=== PATIENT | male | born 1935 | race Caucasian/White ===

== ENCOUNTER 2018-08-19 16:47 | Inpatient (IN) ==
[2018-08-19 17:37] LABS: BASOPHILS % (AUTO) 0.3 % (0.2-1.0); HEMATOCRIT 43.2 % (42.0-54.0); HEMOGLOBIN 14.9 g/dL (13.5-18.0); LYMPHOCYTES # (AUTO) 0.6 X10^3/uL (1.3-2.9); LYMPHOCYTES % (AUTO) 9.3 % (21.0-51.0); MEAN CORPUSCULAR HEMOGLOBIN 31.8 pg (27.0-34.0); MEAN CORPUSCULAR HGB CONC 34.6 g/dL (33.0-35.0); MEAN PLATELET VOLUME 7.4 fL (7.4-11.0); MONOCYTES # (AUTO) 0.8 x10^3/uL (0.3-0.8); NEUTROPHILS # (AUTO) 5.6 x10^3/uL (2.2-4.8); NEUTROPHILS % (AUTO) 79.4 % (42.0-75.0); PLATELET COUNT 134 X10^3/uL (150.0-450.0); RED CELL DISTRIBUTION WIDTH 14.2 % (11.6-16.5)
[2018-08-19] MEDS ORDERED: NS 1000 ML 1,000 ML ONE (17:43)
[2018-08-19 17:48] LABS: ALANINE AMINOTRANSFERASE 32 Units/L (12-78); ALBUMIN 3.9 g/dL (3.4-5.0); ALKALINE PHOSPHATASE 104 Units/L (46-116); ASPARTATE AMINO TRANSFERASE 64 Units/L (15-37); BLOOD UREA NITROGEN 14 mg/dL (7-18); CALCIUM 8.3 mg/dL (8.5-10.1); CARBON DIOXIDE 26.1 mmol/L (21-32); CHLORIDE 102 mmol/L (98-107); COR NA(FOR HYPERGLY) 140 mmol/L (136-145); CREATININE 0.97 mg/dL (0.70-1.30); SODIUM 139 mmol/L (136-145); TOTAL PROTEIN 7.7 g/dL (6.4-8.2); eGFR NON BLACK RACES > 60 (>60)
[2018-08-19] MEDS: NS 1000 ML 1,000 ML IV SCH (17:48)
[2018-08-19 18:03] LABS: LACTIC ACID 1.6 mmol/L (0.4-2.0)
--- NOTE | 2018-08-19 18:03 | CT ---
HEAD CT WITHOUT IV CONTRAST CLINICAL INDICATION: Fall TECHNIQUE: Axial CT images from skull base to vertex without IV contrast.Dose reduction techniques including Automated Exposure Control (AEC) and adjustment of mA and kV were utlized. COMPARISON: None FINDINGS: Diffuse patchy and confluent white matter hypoattenuation with associated volume loss. There is no evidence of acute infarction, intracranial hemorrhage, mass or mass effect, or abnormal extra-axial collection. The density of the larger dural venous sinuses is normal. Age-related, ex-vacuo dilatation of the ventricles and sulci. The skull base and calvarium are normal. The included paranasal sinuses and mastoid air cells are predominantly clear. IMPRESSION: 1. No acute intracranial abnormality. Chronic microangiopathic changes and ex vacuo dilatation of the ventricles and sulci. Reported By:
[2018-08-19 18:16] VITALS: BMI 30.6
[2018-08-19 18:19] LABS: TROPONIN I 0.13 ng/mL (0-1.5)
[2018-08-19 18:22] LABS: CKMB % 0.2 % (<4); CREATINE KINASE MB 4.5 ng/mL (0-4.0)
--- NOTE | 2018-08-19 18:27 | RAD ---
HISTORY: Fall Study: Single view of the chest. Comparison: 11/12/2016 Findings: The cardiomediastinal silhouette is normal. Coarsening of interstitial markings bilaterally. Osseous structures demonstrate no acute abnormality. IMPRESSION: 1. Bilateral coarsened interstitial markings which may represent edema versus infection in the correct clinical setting. Reported By:
[2018-08-19] MEDS ORDERED: ULTRAM PO PRN (18:38)
[2018-08-19] MEDS: FLOMAX PO SCH ×2 (20:38→20:53)
[2018-08-19] MEDS: NEURONTIN CAP 300 MG PO SCH ×2 (20:53→23:30)
[2018-08-19] MEDS: COREG TAB 3.125 MG PO SCH (20:53)
[2018-08-19] MEDS: ROCEPHIN VIAL 1 GRAM IVP SCH (20:53)
[2018-08-19] MEDS ORDERED: XOPENEX 1.25 MG/3 ML NEBULE NEB PRN (21:00)
[2018-08-19] MEDS ORDERED: COUMADIN TAB 7.5 MG PO SCH (21:00)
[2018-08-19] MEDS ORDERED: TYLENOL SUPP 650 MG PR PRN (23:24)
[2018-08-20 00:10] LABS: TROPONIN I 0.21 ng/mL (0-1.5)
[2018-08-20 00:11] LABS: CKMB % 0.1 % (<4)
[2018-08-20 00:13] LABS: CREATINE KINASE MB 5.9 ng/mL (0-4.0)
[2018-08-20] MEDS: NS 1000 ML 1,000 ML IV SCH ×3 (01:48→18:28)
[2018-08-20 06:04] LABS: BILIRUBIN,URINE NEGATIVE (NEGATIVE); BLOOD/HEMOGLOBIN,URINE 5+ (NEGATIVE); GLUCOSE, URINE NEGATIVE (NEGATIVE); KETONES,URINE 3+ (NEGATIVE); LEUKOCYTE ESTERASE ,URINE 2+ (NEGATIVE); NITRITES,URINE POSITIVE (NEGATIVE); PROTEIN,URINE 3+ (NEGATIVE); UROBILINOGEN,URINE 1+ (NORMAL)
[2018-08-20 06:11] LABS: APPEARANCE,URINE CLOUDY (CLEAR); COLOR,URINE BLOODY (YELLOW)
[2018-08-20 06:12] LABS: BACTERIA,URINE NEGATIVE /HPF (NEGATIVE); MUCUS,URINE MODERATE /HPF (NEGATIVE); RBC,URINE TNTC /HPF (NONE SEEN); SQUAMOUS EPITHELIAL CELL,UR NEGATIVE /HPF (NEGATIVE)
[2018-08-20 06:22] LABS: BASOPHILS % (AUTO) 0.4 % (0.2-1.0); HEMATOCRIT 38.5 % (42.0-54.0); HEMOGLOBIN 13.2 g/dL (13.5-18.0); LYMPHOCYTES # (AUTO) 1.1 X10^3/uL (1.3-2.9); LYMPHOCYTES % (AUTO) 17.6 % (21.0-51.0); MEAN CORPUSCULAR HEMOGLOBIN 31.6 pg (27.0-34.0); MEAN CORPUSCULAR HGB CONC 34.4 g/dL (33.0-35.0); MEAN CORPUSCULAR VOLUME 91.9 fL (80.0-100.0); MEAN PLATELET VOLUME 7.6 fL (7.4-11.0); MONOCYTES # (AUTO) 0.8 x10^3/uL (0.3-0.8); NEUTROPHILS # (AUTO) 4.5 x10^3/uL (2.2-4.8); PLATELET COUNT 117 X10^3/uL (150.0-450.0); RED BLOOD COUNT 4.19 X10^6/uL (4.7-6.0); RED CELL DISTRIBUTION WIDTH 14.3 % (11.6-16.5); WHITE BLOOD COUNT 6.5 X10^3/uL (3.6-10.0)
[2018-08-20 06:59] LABS: ALANINE AMINOTRANSFERASE 42 Units/L (12-78); ALBUMIN 3.2 g/dL (3.4-5.0); ALKALINE PHOSPHATASE 81 Units/L (46-116); ASPARTATE AMINO TRANSFERASE 124 Units/L (15-37); BLOOD UREA NITROGEN 16 mg/dL (7-18); CALCIUM 7.3 mg/dL (8.5-10.1); CARBON DIOXIDE 24.6 mmol/L (21-32); CHLORIDE 103 mmol/L (98-107); COR CA(FOR HYPOALB) 7.9 mg/dL (8.5-10.1); COR NA(FOR HYPERGLY) 139 mmol/L (136-145); CREATININE 0.81 mg/dL (0.70-1.30); SODIUM 139 mmol/L (136-145); TOTAL PROTEIN 6.7 g/dL (6.4-8.2); TROPONIN I 0.25 ng/mL (0-1.5); eGFR NON BLACK RACES > 60 (>60)
[2018-08-20 07:08] LABS: CKMB % 0.1 % (<4); CREATINE KINASE 5431 Units/L (39-308); CREATINE KINASE MB 6.2 ng/mL (0-4.0)
[2018-08-20] MEDS: ROCEPHIN VIAL 1 GRAM IVP SCH (08:40)
[2018-08-20] MEDS: FOLIC ACID TAB 1 MG PO SCH (08:40)
[2018-08-20] MEDS: LIPITOR TAB 20 MG PO SCH (08:40)
[2018-08-20] MEDS: COREG TAB 3.125 MG PO SCH ×2 (08:41→20:29)
[2018-08-20] MEDS: KLONOPIN TAB 1 MG PO SCH (08:57)
[2018-08-20] MEDS ORDERED: LIPITOR TAB 20 MG PO SCH (09:00)
--- NOTE | 2018-08-20 10:57 | DR.H&P ---
H&P - History & Physical for Day of: H&P Date: 08/19/18 - Chief Complaint Chief Complaint: AMS - History of Present Illness History of Present Illness: 82 WM DIRECT ADMIT PER DR REDDY. PT FAMILY REPORTS PTS SON FOUND HIM AT HOME IN HIS ROOM, HE HAD FALLEN AND SON COULD NOT GET HIM UP. EMS PICKED PT UP AT HOME AND GAVE NARCAN DUE TO CONSTRICTED PUPILS, EMS REPORTS PT HAD IMPROVED RESPONSIVENESS. PT STATES HE DID NOT FALL, PT REPORTS HE WAS TRY TO GET HIS PANTS ON AND FEET GOT TANGLED UP. PT STATES HE CRAWLED AROUND ROOM FOR 4-5 HOURS BECAUSE HE COULD NOT FIND HIS PHONE OR GET UP WITHOUT HELP. PT REPORTS HE WAS "WASHED DOWN WITH SWEAT". PT HAS PMH OF CHF, CAD, BPH, HTN, OA. PT ADMITTED FOR TREATMENT OF ACUTE AMS, R/O CVA. - Past Medical History Past Medical History: Arthritis, COPD, Coronary Artery Disease, Hypertension Additional Medical History: Cataracts, Sleep Apnea, Muscle Weakness, Back Pain, BPH - Past Surgical History Surgical History: Angioplasty/Stents, CABG/Valve Surgery Additional Surgical History: Cataract Surgery - Family History Family Medical History: Coronary Artery Disease - Social History Does patient currently use any type of tobacco product: No Have you used tobacco products in the last 12 months: No Type of Tobacco Use: None Does any household member use tobacco: No Alcohol Use: None Drug Use: None - Medications Home Medications: No Known Drug Allergies Allergy (Verified 08/19/18 17:01) CONTINUE taking the following medications clonazepam 0.5 mg PO DAILY 08/19/18 [History] folic acid 1 mg PO DAILY 08/19/18 [History] tramadol [Ultram] 50 mg PO Q6H PRN 08/19/18 [History] - Review of Systems Constitutional: Weakness Eyes: No Symptoms Reported ENT: No Symptoms Reported Respiratory: Cough, Wheezing Cardiovascular: denies: Chest Pain Gastrointestinal: No Symptoms Reported Genitourinary: No Symptoms Reported Musculoskeletal: Back Pain Skin: No Symptoms Reported Neurological: Weakness, Confusion - Physical Exam Vital Signs: Temperature 98.1 F Pulse Rate [Right Brachial] 86 Pulse Rate 74 Respiratory Rate 20 Blood Pressure [Right Arm] 121/58 Blood Pressure [Left Arm] 111/68 Blood Pressure 111/68 O2 Sat by Pulse Oximetry 98 Oriented: Person Eyes: Normal Ear: Normal Nose: Normal Throat: Dry Respiratory: Rhonchi Throughout (MILD CENTRAL), RLL Diminished, LLL Diminished Cardiovascular: Irregular. negative: Edema : Normal Auscultation: Bowel Sounds: Normal Palpation: Normal Tenderness: Normal Skin: Decreased Turgur Musculoskeletal: Back:Lumbar, Motor Deficit (MILD LUE FINE TREMOR) Mood Description: Calm Speech Pattern: Clear, Appropriate - Assessment/Plan (1) Altered mental status Status: Acute Plan: ADMIT, CT HEAD ON ADMISSION. CXR AND CARDIAC MONITORING. SERIAL CE, GENTLE IV HYDRATION. LUNDY CATH WITH STRICT I & OS, VERIFY HOME MEDICATION. BP AND LIPID CONTROL (2) BPH (benign prostatic hyperplasia) Status: Acute (3) CHF (congestive heart failure) Qualifiers: Qualified Code(s): I50.23 - Acute on chronic systolic (congestive) heart failure Status: Chronic (4) CAD (coronary artery disease) Qualifiers: Coronary Disease-Associated Artery/Lesion type: [place] artery [place] vs. tr ansplanted heart: [place] heart Associated angina: without angina Qualified Code(s): I25.10 - Atherosclerotic heart disease of [place] coronary artery without angina pectoris Status: Chronic - Allergies Allergies/Adverse Reactions: Allergies Allergy/AdvReac Type Severity Reaction Status Date / Time No Known Drug Allergies Allergy Verified 08/19/18 17:01
--- NOTE | 2018-08-20 11:04 | PCM.PROG ---
Progress Note - Progress Note for Day of Date of Exam: 08/20/18 - Subjective Subjective: 82 WM DIRECT ADMIT ON 08/19 WITH AMS. PT ALERT, AWAKE AND ORIENTED THIS AM. PT DENIES ANY CHEST PAIN OR INCREASES SOB. PT HAS MILDLY PRODUCTIVE COUGH AND CENTRAL RHONCHI, CURRENTLY ON IV ROCEPHIN. PT CE WITH ELEVATED CK. CXR WITH INCREASED VASCULAR CONGESTION. PLAN TO CONTINUE GENTLE HYDRATION, IV ATBX, RESP THERAPY, SUPPLEMENTAL O2, LASIX IV WITH STRICT I & OS - Past Medical Family Social History Past Med/Fam/Surg Hx: No changes since H&P Allergies: Allergies No Known Drug Allergies Allergy (Verified 08/19/18 17:01) - Review of Systems ROS: No change since H&P - Vital Signs and I&O's Vital Signs: Temperature 98.1 F Pulse Rate [Right Brachial] 86 Pulse Rate 74 Respiratory Rate 20 Blood Pressure [Right Arm] 121/58 Blood Pressure [Left Arm] 111/68 Blood Pressure 111/68 O2 Sat by Pulse Oximetry 98 Intake and Output: Intake & Output 08/17/18 08/18/18 08/19/18 08/20/18 11:59 11:59 11:59 11:59 Intake Total 789 / 789 Output Total 600 / 600 Balance 189 / 189 - Physical Exam Oriented: Person Eyes: Normal Ear: Normal Nose: Normal Throat: Dry Respiratory: Diminished, Rhonchi Cardiovascular: Irregular. negative: Edema : Normal Auscultation: Bowel Sounds: Normal Tenderness: Normal Skin: Decreased Turgur Musculoskeletal: Back:Lumbar, Motor Deficit (MILD LUE FINE TREMOR) Mood Description: Calm Speech Pattern: Clear, Appropriate - Laboratory and Diagnostics Result Diagrams: 08/20/18 04:50 08/20/18 04:50 Labs: 08/19/18 17:15 Sputum - Expectorated Sputum Sputum Culture - Preliminary 08/19/18 17:15 Sputum - Expectorated Sputum - Final Laboratory WBC 6.5 X10^3/uL (3.6-10.0) 08/20/18 04:50 RBC 4.19 X10^6/uL (4.7-6.0) L 08/20/18 04:50 Hgb 13.2 g/dL (13.5-18.0) L 08/20/18 04:50 Hct 38.5 % (42.0-54.0) L 08/20/18 04:50 MCV 91.9 fL (80.0-100.0) 08/20/18 04:50 MCH 31.6 pg (27.0-34.0) 08/20/18 04:50 MCHC 34.4 g/dL (33.0-35.0) 08/20/18 04:50 RDW 14.3 % (11.6-16.5) 08/20/18 04:50 Plt Count 117 X10^3/uL (150.0-450.0) L 08/20/18 04:50 MPV 7.6 fL (7.4-11.0) 08/20/18 04:50 Neut % (Auto) 69.0 % (42.0-75.0) 08/20/18 04:50 Lymph % (Auto) 17.6 % (21.0-51.0) L 08/20/18 04:50 [place] % (Auto) 13.0 % (0.0-13.0) 08/20/18 04:50 Eos % (Auto) 0.0 % (0.9-2.9) L 08/20/18 04:50 Baso % (Auto) 0.4 % (0.2-1.0) 08/20/18 04:50 Neut # (Auto) 4.5 x10^3/uL (2.2-4.8) 08/20/18 04:50 Lymph # (Auto) 1.1 X10^3/uL (1.3-2.9) L 08/20/18 04:50 [place] # (Auto) 0.8 x10^3/uL (0.3-0.8) 08/20/18 04:50 Eos # (Auto) 0.0 x10^3/uL (0.0-0.2) 08/20/18 04:50 Baso # (Auto) 0.0 X10^3/uL (0.0-0.1) 08/20/18 04:50 Absolute Nucleated RBC 0.0 /100WBC 08/20/18 04:50 INR Target Range - 08/20/18 04:50 INR 2.24 (0.8-1.3) H 08/20/18 04:50 Sodium 139 mmol/L (136-145) 08/20/18 04:50 Corrected Sodium 139 mmol/L (136-145) 08/20/18 04:50 Potassium 3.5 mmol/L (3.5-5.1) 08/20/18 04:50 Chloride 103 mmol/L (98-107) 08/20/18 04:50 Carbon Dioxide 24.6 mmol/L (21-32) 08/20/18 04:50 BUN 16 mg/dL (7-18) 08/20/18 04:50 Creatinine 0.81 mg/dL (0.70-1.30) 08/20/18 04:50 Est GFR (MDRD) Af Amer > 60 (>60) 08/20/18 04:50 Est GFR (MDRD) Non-Af > 60 (>60) 08/20/18 04:50 Glucose 120 mg/dL (65-99) H 08/20/18 04:50 Lactic Acid 1.6 mmol/L (0.4-2.0) 08/19/18 17:20 Calcium 7.3 mg/dL (8.5-10.1) L 08/20/18 04:50 Corrected Calcium 7.9 mg/dL (8.5-10.1) L 08/20/18 04:50 Total Bilirubin 1.20 mg/dL (0.2-1.0) H 08/20/18 04:50 AST 124 Units/L (15-37) H 08/20/18 04:50 ALT 42 Units/L (12-78) 08/20/18 04:50 Alkaline Phosphatase 81 Units/L (46-116) 08/20/18 04:50 Creatine Kinase 5431 Units/L (39-308) H 08/20/18 04:50 CK-MB (CK-2) 6.2 ng/mL (0-4.0) H* 08/20/18 04:50 CK/CKMB % Calc 0.1 % (<4) 08/20/18 04:50 Troponin I 0.25 ng/mL (0-1.5) 08/20/18 04:50 B-Natriuretic Peptide 328 pg/mL (0-79) H 08/20/18 04:50 Total Protein 6.7 g/dL (6.4-8.2) 08/20/18 04:50 Albumin 3.2 g/dL (3.4-5.0) L 08/20/18 04:50 Globulin 3.5 g/dL (2.5-4.5) 08/20/18 04:50 Albumin/Globulin Ratio 0.9 Ratio (1.1-2.1) L 08/20/18 04:50 Specimen Type Catherized urine 08/20/18 05:48 Urine Color Bloody (YELLOW) 08/20/18 05:48 Urine Appearance Cloudy (CLEAR) 08/20/18 05:48 Urine pH 5.0 (5.0 - 8.0) 08/20/18 05:48 Ur Specific [place] 1.025 (1.000-1.030) 08/20/18 05:48 Urine Protein 3+ (NEGATIVE) 08/20/18 05:48 Urine Glucose (UA) Negative (NEGATIVE) 08/20/18 05:48 Urine Ketones 3+ (NEGATIVE) 08/20/18 05:48 Urine Occult Blood 5+ (NEGATIVE) 08/20/18 05:48 Urine Nitrite Positive (NEGATIVE) 08/20/18 05:48 Urine Bilirubin Negative (NEGATIVE) 08/20/18 05:48 Urine Urobilinogen 1+ (NORMAL) 08/20/18 05:48 Ur Leukocyte Esterase 2+ (NEGATIVE) 08/20/18 05:48 Urine RBC Tntc /HPF (NONE SEEN) 08/20/18 05:48 Urine WBC 5-10 /HPF (NONE SEEN) 08/20/18 05:48 Ur Squamous Epith Cells Negative /HPF (NEGATIVE) 08/20/18 05:48 Urine Bacteria Negative /HPF (NEGATIVE) 08/20/18 05:48 Urine Mucus Moderate /HPF (NEGATIVE) 08/20/18 05:48 Ur Culture Indicated? No/not indicated 08/20/18 05:48 - Plan (1) Altered mental status Status: Acute Plan: CT HEAD ON ADMISSION WIHTOUT ACUTE CHANGES. CXR AND CARDIAC MONITORING. SERIAL CE ON ADMISSION,PLAN TO CONTINUE GENTLE HYDRATION, IV ATBX, RESP THERAPY, SUPPLEMENTAL O2, LASIX IV WITH STRICT I & OS (2) BPH (benign prostatic hyperplasia) Status: Acute (3) CHF (congestive heart failure) Status: Chronic Qualifiers: Qualified Code(s): I50.23 - Acute on chronic systolic (congestive) heart failure (4) CAD (coronary artery disease) Status: Chronic Qualifiers: Coronary Disease-Associated Artery/Lesion type: [place] artery [place] vs. transplanted heart: [place] heart Associated angina: without angina Qualified Code(s): I25.10 - Atherosclerotic heart disease of [place] coronary artery without angina pectoris
[2018-08-20] MEDS: LASIX IVP SCH ×2 (11:09→20:27)
[2018-08-20] MEDS: NEURONTIN CAP 100 MG PO SCH ×2 (14:18→20:27)
[2018-08-20] MEDS ORDERED: POTASSIUM CHLORIDE LIQ 20 MEQ UDC PO PRN (19:04)
[2018-08-20] MEDS ORDERED: K-RIDER 10 MEQ/NS 100 ML 10 MEQ/100 ML BAG IV PRN (19:04)
[2018-08-20] MEDS ORDERED: POTASSIUM CHL 60 MEQ/NS 0.45% 500 ML IV PRN (19:04)
[2018-08-20] MEDS ORDERED: POTASSIUM CHL 40 MEQ/NS 0.45% 500 ML IV PRN (19:04)
[2018-08-20] MEDS ORDERED: KLOR-CON PO PRN (19:04)
[2018-08-20] MEDS ORDERED: MICRO K EXTEN CAP 10 MEQ PO PRN (19:04)
[2018-08-20] MEDS: FLOMAX PO SCH (20:29)
[2018-08-20] MEDS: K-DUR TAB 20 MEQ PO PRN (20:29)
[2018-08-20] MEDS: MAGNESIUM SULFATE 1 GRAM/100 mL PREMIX 1 GM/100 ML BAG IV PRN ×2 (20:30→23:26)
[2018-08-20] MEDS: COUMADIN TAB 7.5 MG PO SCH (20:39)
[2018-08-20] MEDS: COLACE CAP 100 MG PO PRN (22:33)
[2018-08-20] MEDS: MILK OF MAGNESIA PO PRN (22:33)
[2018-08-21] MEDS: NS 1000 ML 1,000 ML IV SCH ×2 (00:34→09:54)
--- NOTE | 2018-08-21 06:37 | RAD ---
Examination: AP chest, two views History: Cough Comparison 08/19/2018 Findings: Continued normal heart size with sternal wires. Diffuse bilateral interstitial pulmonary prominence as before, consistent with chronic fibrosis or a more acute congestive process. No consolidation, tiana pulmonary edema or pneumothorax. Impression: No definite interval change in appearance of the chest. Reported By:
[2018-08-21 06:54] LABS: BASOPHILS % (AUTO) 0.2 % (0.2-1.0); EOSINOPHILS % (AUTO) 0.6 % (0.9-2.9); HEMATOCRIT 40.8 % (42.0-54.0); LYMPHOCYTES # (AUTO) 1.3 X10^3/uL (1.3-2.9); LYMPHOCYTES % (AUTO) 21.2 % (21.0-51.0); MEAN CORPUSCULAR HEMOGLOBIN 31.5 pg (27.0-34.0); MEAN CORPUSCULAR HGB CONC 34.3 g/dL (33.0-35.0); MEAN CORPUSCULAR VOLUME 91.8 fL (80.0-100.0); MEAN PLATELET VOLUME 7.6 fL (7.4-11.0); MONOCYTES # (AUTO) 0.6 x10^3/uL (0.3-0.8); MONOCYTES % (AUTO) 10.7 % (0.0-13.0); NEUTROPHILS % (AUTO) 67.3 % (42.0-75.0); PLATELET COUNT 117 X10^3/uL (150.0-450.0); RED BLOOD COUNT 4.45 X10^6/uL (4.7-6.0); RED CELL DISTRIBUTION WIDTH 14.1 % (11.6-16.5)
[2018-08-21 07:18] LABS: ALANINE AMINOTRANSFERASE 60 Units/L (12-78); ALBUMIN 3.3 g/dL (3.4-5.0); ALKALINE PHOSPHATASE 81 Units/L (46-116); ASPARTATE AMINO TRANSFERASE 180 Units/L (15-37); BLOOD UREA NITROGEN 16 mg/dL (7-18); CALCIUM 7.7 mg/dL (8.5-10.1); CARBON DIOXIDE 30.1 mmol/L (21-32); CHLORIDE 100 mmol/L (98-107); COR CA(FOR HYPOALB) 8.3 mg/dL (8.5-10.1); COR NA(FOR HYPERGLY) 139 mmol/L (136-145); CREATININE 0.86 mg/dL (0.70-1.30); SODIUM 138 mmol/L (136-145); TOTAL PROTEIN 7.2 g/dL (6.4-8.2); eGFR NON BLACK RACES > 60 (>60)
[2018-08-21] MEDS: FOLIC ACID TAB 1 MG PO SCH (08:34)
[2018-08-21] MEDS: COREG TAB 3.125 MG PO SCH ×2 (08:34→22:01)
[2018-08-21] MEDS: ROCEPHIN VIAL 1 GRAM IVP SCH (08:35)
[2018-08-21] MEDS: LIPITOR TAB 20 MG PO SCH (08:35)
[2018-08-21] MEDS: KLONOPIN TAB 1 MG PO SCH (08:35)
[2018-08-21] MEDS: MILK OF MAGNESIA PO PRN (10:23)
[2018-08-21] MEDS ORDERED: NS IRRIGATION 500 ML IR ONE (16:21)
[2018-08-21] MEDS ORDERED: COUMADIN TAB 10 MG PO SCH (21:00)
[2018-08-21] MEDS: FLOMAX PO SCH (22:00)
[2018-08-21] MEDS: COUMADIN TAB 7.5 MG PO SCH (22:00)
[2018-08-21] MEDS: NEURONTIN CAP 100 MG PO SCH (22:01)
[2018-08-22] MEDS: NS 1000 ML 1,000 ML IV SCH ×3 (00:50→14:57)
[2018-08-22 06:15] LABS: BASOPHILS % (AUTO) 0.2 % (0.2-1.0); EOSINOPHILS # (AUTO) 0.1 x10^3/uL (0.0-0.2); EOSINOPHILS % (AUTO) 1.5 % (0.9-2.9); HEMATOCRIT 39.7 % (42.0-54.0); HEMOGLOBIN 13.7 g/dL (13.5-18.0); LYMPHOCYTES # (AUTO) 1.3 X10^3/uL (1.3-2.9); LYMPHOCYTES % (AUTO) 22.8 % (21.0-51.0); MEAN CORPUSCULAR HEMOGLOBIN 31.6 pg (27.0-34.0); MEAN CORPUSCULAR HGB CONC 34.5 g/dL (33.0-35.0); MEAN CORPUSCULAR VOLUME 91.6 fL (80.0-100.0); MEAN PLATELET VOLUME 7.9 fL (7.4-11.0); MONOCYTES # (AUTO) 0.6 x10^3/uL (0.3-0.8); MONOCYTES % (AUTO) 10.2 % (0.0-13.0); NEUTROPHILS # (AUTO) 3.7 x10^3/uL (2.2-4.8); NEUTROPHILS % (AUTO) 65.3 % (42.0-75.0); PLATELET COUNT 106 X10^3/uL (150.0-450.0); RED BLOOD COUNT 4.33 X10^6/uL (4.7-6.0); WHITE BLOOD COUNT 5.7 X10^3/uL (3.6-10.0)
[2018-08-22 06:38] LABS: ALANINE AMINOTRANSFERASE 60 Units/L (12-78); ALBUMIN 3.2 g/dL (3.4-5.0); ALKALINE PHOSPHATASE 81 Units/L (46-116); ASPARTATE AMINO TRANSFERASE 151 Units/L (15-37); BLOOD UREA NITROGEN 16 mg/dL (7-18); CALCIUM 7.5 mg/dL (8.5-10.1); CARBON DIOXIDE 27.1 mmol/L (21-32); CHLORIDE 101 mmol/L (98-107); COR CA(FOR HYPOALB) 8.1 mg/dL (8.5-10.1); COR NA(FOR HYPERGLY) 138 mmol/L (136-145); CREATINE KINASE MB 3.2 ng/mL (0-4.0); CREATININE 0.75 mg/dL (0.70-1.30); SODIUM 137 mmol/L (136-145); TOTAL PROTEIN 6.9 g/dL (6.4-8.2); TROPONIN I 0.08 ng/mL (0-1.5); eGFR NON BLACK RACES > 60 (>60)
[2018-08-22 06:39] LABS: CKMB % 0.1 % (<4)
[2018-08-22 06:40] LABS: CREATINE KINASE 3694 Units/L (39-308)
[2018-08-22] MEDS: ROCEPHIN VIAL 1 GRAM IVP SCH (09:05)
[2018-08-22] MEDS: COREG TAB 3.125 MG PO SCH ×2 (09:05→20:51)
[2018-08-22] MEDS: LIPITOR TAB 20 MG PO SCH (09:05)
[2018-08-22] MEDS: COLACE CAP 100 MG PO PRN (09:05)
[2018-08-22] MEDS: FOLIC ACID TAB 1 MG PO SCH (09:05)
[2018-08-22] MEDS: KLONOPIN TAB 1 MG PO SCH (09:06)
--- NOTE | 2018-08-22 09:24 | PCM.PROG ---
Progress Note - Progress Note for Day of Date of Exam: 08/21/18 - Subjective Subjective: 82 WM DIRECT ADMIT ON 08/19 WITH AMS. PT ALERT, AWAKE AND ORIENTED THIS AM. PT DENIES ANY CHEST PAIN OR INCREASES SOB. PT HAS MILDLY PRODUCTIVE COUGH AND CENTRAL RHONCHI, CURRENTLY ON IV ROCEPHIN. PT CE WITH ELEVATED CK. CXR WITH INCREASED VASCULAR CONGESTION. WILL REPEAT AM CXR. PLAN TO CONTINUE GENTLE HYDRATION, IV ATBX, RESP THERAPY, SUPPLEMENTAL O2, LASIX IV X 2 DOES GIVEN WITH STRICT I & OS, IMPROVING SOB PER PT, INCREASE URINE OUTPT. PT CK 5846, REPEAT CE ORDERED. SPUTUM + ENTEROBACTER SENSATIVE TO ROCEPHIN - Past Medical Family Social History Past Med/Fam/Surg Hx: No changes since H&P Allergies: Allergies No Known Drug Allergies Allergy (Verified 08/19/18 17:01) - Review of Systems ROS: No change since H&P - Vital Signs and I&O's Vital Signs: Temperature 98.1 F Pulse Rate [Right Brachial] 98 Pulse Rate 74 Respiratory Rate 20 Blood Pressure [Right Arm] 112/66 Blood Pressure [Left Arm] 123/74 Blood Pressure 111/68 O2 Sat by Pulse Oximetry 95 Intake and Output: Intake & Output 08/19/18 08/20/18 08/21/18 08/22/18 11:59 11:59 11:59 11:59 Intake Total 789 / 789 1755 / 1755 2040 / 2040 Output Total 600 / 600 3300 / 3300 800 / 800 Balance 189 / 189 -1545 / -1545 1240 / 1240 - Physical Exam Oriented: Person Eyes: Normal Ear: Normal Nose: Normal Throat: Dry Respiratory: Diminished, Rhonchi Cardiovascular: Irregular. negative: Edema : Normal Auscultation: Bowel Sounds: Normal Tenderness: Normal Skin: Decreased Turgur Musculoskeletal: Back:Lumbar, Motor Deficit (MILD LUE FINE TREMOR) Mood Description: Calm Speech Pattern: Clear, Delayed - Laboratory and Diagnostics Result Diagrams: 08/22/18 05:20 08/22/18 05:20 Labs: 08/20/18 05:48 Urine,Catheterized Urine Culture - Final 08/19/18 17:20 Blood Blood Culture - Preliminary 08/19/18 17:15 Sputum - Expectorated Sputum Sputum Culture - Final Enterobacter Cloacae 08/19/18 17:15 Sputum - Expectorated Sputum - Final 08/19/18 17:25 Blood Blood Culture - Preliminary Laboratory WBC 5.7 X10^3/uL (3.6-10.0) 08/22/18 05:20 RBC 4.33 X10^6/uL (4.7-6.0) L 08/22/18 05:20 Hgb 13.7 g/dL (13.5-18.0) 08/22/18 05:20 Hct 39.7 % (42.0-54.0) L 08/22/18 05:20 MCV 91.6 fL (80.0-100.0) 08/22/18 05:20 MCH 31.6 pg (27.0-34.0) 08/22/18 05:20 MCHC 34.5 g/dL (33.0-35.0) 08/22/18 05:20 RDW 14.0 % (11.6-16.5) 08/22/18 05:20 Plt Count 106 X10^3/uL (150.0-450.0) L 08/22/18 05:20 MPV 7.9 fL (7.4-11.0) 08/22/18 05:20 Neut % (Auto) 65.3 % (42.0-75.0) 08/22/18 05:20 Lymph % (Auto) 22.8 % (21.0-51.0) 08/22/18 05:20 [place] % (Auto) 10.2 % (0.0-13.0) 08/22/18 05:20 Eos % (Auto) 1.5 % (0.9-2.9) 08/22/18 05:20 Baso % (Auto) 0.2 % (0.2-1.0) 08/22/18 05:20 Neut # (Auto) 3.7 x10^3/uL (2.2-4.8) 08/22/18 05:20 Lymph # (Auto) 1.3 X10^3/uL (1.3-2.9) 08/22/18 05:20 [place] # (Auto) 0.6 x10^3/uL (0.3-0.8) 08/22/18 05:20 Eos # (Auto) 0.1 x10^3/uL (0.0-0.2) 08/22/18 05:20 Baso # (Auto) 0.0 X10^3/uL (0.0-0.1) 08/22/18 05:20 Absolute Nucleated RBC 0.1 /100WBC 08/22/18 05:20 INR Target Range - 08/22/18 05:20 INR 2.43 (0.8-1.3) H 08/22/18 05:20 Sodium 137 mmol/L (136-145) 08/22/18 05:20 Corrected Sodium 138 mmol/L (136-145) 08/22/18 05:20 Potassium 3.9 mmol/L (3.5-5.1) 08/22/18 05:20 Chloride 101 mmol/L (98-107) 08/22/18 05:20 Carbon Dioxide 27.1 mmol/L (21-32) 08/22/18 05:20 BUN 16 mg/dL (7-18) 08/22/18 05:20 Creatinine 0.75 mg/dL (0.70-1.30) 08/22/18 05:20 Est GFR (MDRD) Af Amer > 60 (>60) 08/22/18 05:20 Est GFR (MDRD) Non-Af > 60 (>60) 08/22/18 05:20 Glucose 129 mg/dL (65-99) H 08/22/18 05:20 Lactic Acid 1.6 mmol/L (0.4-2.0) 08/19/18 17:20 Calcium 7.5 mg/dL (8.5-10.1) L 08/22/18 05:20 Corrected Calcium 8.1 mg/dL (8.5-10.1) L 08/22/18 05:20 Magnesium 2.5 mg/dL (1.7-2.9) 08/21/18 05:45 Total Bilirubin 1.00 mg/dL (0.2-1.0) 08/22/18 05:20 AST 151 Units/L (15-37) H 08/22/18 05:20 ALT 60 Units/L (12-78) 08/22/18 05:20 Alkaline Phosphatase 81 Units/L (46-116) 08/22/18 05:20 Creatine Kinase 3694 Units/L (39-308) H 08/22/18 05:20 CK-MB (CK-2) 3.2 ng/mL (0-4.0) 08/22/18 05:20 CK/CKMB % Calc 0.1 % (<4) 08/22/18 05:20 Troponin I 0.08 ng/mL (0-1.5) 08/22/18 05:20 B-Natriuretic Peptide 328 pg/mL (0-79) H 08/20/18 04:50 Total Protein 6.9 g/dL (6.4-8.2) 08/22/18 05:20 Albumin 3.2 g/dL (3.4-5.0) L 08/22/18 05:20 Globulin 3.7 g/dL (2.5-4.5) 08/22/18 05:20 Albumin/Globulin Ratio 0.9 Ratio (1.1-2.1) L 08/22/18 05:20 Specimen Type Catherized urine 08/20/18 05:48 Urine Color Bloody (YELLOW) 08/20/18 05:48 Urine Appearance Cloudy (CLEAR) 08/20/18 05:48 Urine pH 5.0 (5.0 - 8.0) 08/20/18 05:48 Ur Specific [place] 1.025 (1.000-1.030) 08/20/18 05:48 Urine Protein 3+ (NEGATIVE) 08/20/18 05:48 Urine Glucose (UA) Negative (NEGATIVE) 08/20/18 05:48 Urine Ketones 3+ (NEGATIVE) 08/20/18 05:48 Urine Occult Blood 5+ (NEGATIVE) 08/20/18 05:48 Urine Nitrite Positive (NEGATIVE) 08/20/18 05:48 Urine Bilirubin Negative (NEGATIVE) 08/20/18 05:48 Urine Urobilinogen 1+ (NORMAL) 08/20/18 05:48 Ur Leukocyte Esterase 2+ (NEGATIVE) 08/20/18 05:48 Urine RBC Tntc /HPF (NONE SEEN) 08/20/18 05:48 Urine WBC 5-10 /HPF (NONE SEEN) 08/20/18 05:48 Ur Squamous Epith Cells Negative /HPF (NEGATIVE) 08/20/18 05:48 Urine Bacteria Negative /HPF (NEGATIVE) 08/20/18 05:48 Urine Mucus Moderate /HPF (NEGATIVE) 08/20/18 05:48 Ur Culture Indicated? No/not indicated 08/20/18 05:48 - Plan (1) Altered mental status Status: Acute Plan: CT HEAD ON ADMISSION WIHTOUT ACUTE CHANGES. CXR AND CARDIAC MONITORING. SERIAL CE ON ADMISSION,PLAN TO CONTINUE GENTLE HYDRATION, IV ATBX, RESP THERAPY, SUPPLEMENTAL O2, LASIX IV WITH STRICT I & OS (2) Bronchopneumonia Status: Acute Plan: RESP THERAPY, IV ROCEPHIN. CULTURES COLLECTED ON ADMISSION (3) BPH (benign prostatic hyperplasia) Status: Acute (4) CHF (congestive heart failure) Status: Chronic Qualifiers: Qualified Code(s): I50.23 - Acute on chronic systolic (congestive) heart failure (5) CAD (coronary artery disease) Status: Chronic Qualifiers: Coronary Disease-Associated Artery/Lesion type: [place] artery [place] vs. transplanted heart: [place] heart Associated angina: without angina Qualified Code(s): I25.10 - Atherosclerotic heart disease of [place] coronary artery without angina pectoris
[2018-08-22] MEDS: FLOMAX PO SCH (20:51)
[2018-08-22] MEDS: NEURONTIN CAP 100 MG PO SCH (20:51)
[2018-08-22] MEDS: COUMADIN TAB 7.5 MG PO SCH (20:52)
[2018-08-23] MEDS: NS 1000 ML 1,000 ML IV SCH ×2 (01:15→06:04)
[2018-08-23 05:15] LABS: BASOPHILS % (AUTO) 0.5 % (0.2-1.0); EOSINOPHILS # (AUTO) 0.2 x10^3/uL (0.0-0.2); EOSINOPHILS % (AUTO) 5.5 % (0.9-2.9); HEMATOCRIT 37.8 % (42.0-54.0); HEMOGLOBIN 12.9 g/dL (13.5-18.0); LYMPHOCYTES % (AUTO) 23.3 % (21.0-51.0); MEAN CORPUSCULAR HEMOGLOBIN 31.2 pg (27.0-34.0); MEAN CORPUSCULAR VOLUME 91.8 fL (80.0-100.0); MEAN PLATELET VOLUME 8.2 fL (7.4-11.0); MONOCYTES # (AUTO) 0.5 x10^3/uL (0.3-0.8); MONOCYTES % (AUTO) 11.1 % (0.0-13.0); NEUTROPHILS # (AUTO) 2.6 x10^3/uL (2.2-4.8); NEUTROPHILS % (AUTO) 59.6 % (42.0-75.0); PLATELET COUNT 131 X10^3/uL (150.0-450.0); RED BLOOD COUNT 4.12 X10^6/uL (4.7-6.0); WHITE BLOOD COUNT 4.4 X10^3/uL (3.6-10.0)
[2018-08-23 05:47] LABS: ALANINE AMINOTRANSFERASE 55 Units/L (12-78); ALBUMIN 2.9 g/dL (3.4-5.0); ALKALINE PHOSPHATASE 74 Units/L (46-116); ASPARTATE AMINO TRANSFERASE 105 Units/L (15-37); BLOOD UREA NITROGEN 12 mg/dL (7-18); CALCIUM 7.7 mg/dL (8.5-10.1); CARBON DIOXIDE 27.8 mmol/L (21-32); CHLORIDE 104 mmol/L (98-107); COR CA(FOR HYPOALB) 8.6 mg/dL (8.5-10.1); COR NA(FOR HYPERGLY) 141 mmol/L (136-145); CREATINE KINASE MB 2.7 ng/mL (0-4.0); CREATININE 0.73 mg/dL (0.70-1.30); SODIUM 140 mmol/L (136-145); TOTAL PROTEIN 6.3 g/dL (6.4-8.2); TROPONIN I 0.04 ng/mL (0-1.5); eGFR NON BLACK RACES > 60 (>60)
[2018-08-23 05:50] LABS: CKMB % 0.2 % (<4); CREATINE KINASE 1688 Units/L (39-308)
[2018-08-23] MEDS: K-DUR TAB 20 MEQ PO PRN (06:05)
[2018-08-23 08:05] VITALS: BP 120/67
[2018-08-23] MEDS: FOLIC ACID TAB 1 MG PO SCH (08:33)
[2018-08-23] MEDS: KLONOPIN TAB 1 MG PO SCH ×2 (08:33→08:38)
[2018-08-23] MEDS: COREG TAB 3.125 MG PO SCH (08:37)
[2018-08-23] MEDS: LIPITOR TAB 20 MG PO SCH (08:38)
[2018-08-23] MEDS: ROCEPHIN VIAL 1 GRAM IVP SCH (08:38)
[2018-08-23] MEDS ORDERED: COUMADIN TAB 5 MG PO SCH (21:00)
--- NOTE | 2018-09-09 01:39 | DR.CARTERD ---
- Discharge Summary for: Discharge Summary for Date of:: 08/23/18 - Admission Date Date of Admission: 08/19/18 - Admission Diagnoses Admission Diagnosis: (1) CHF (congestive heart failure) (2) Altered mental status (3) BPH (benign prostatic hyperplasia) (4) CAD (coronary artery disease) - Discharge Date Discharge Date: 08/23/18 - Discharge Diagnoses Discharge Diagnosis: (1) CHF (congestive heart failure) (2) Bronchopneumonia (3) Altered mental status (4) BPH (benign prostatic hyperplasia) (5) CAD (coronary artery disease) - Hospital Course Hospital Course: DAY ONE, 82 WM DIRECT ADMIT PER DR REDDY. PT FAMILY REPORTED PTS SON FOUND HIM AT HOME IN HIS ROOM, HE HAD FALLEN AND SON COULD NOT GET HIM UP. EMS PICKED PT UP AT HOME AND GAVE NARCAN DUE TO CONSTRICTED PUPILS, EMS REPORTED PT HAD IMPROVED RESPONSIVENESS. PT STATED HE DID NOT FALL, PT REPORTED HE WAS TRYING TO GET HIS PANTS ON AND FEET GOT TANGLED UP. PT STATED HE CRAWLED AROUND ROOM FOR 4-5 HOURS BECAUSE HE COULD NOT FIND HIS PHONE OR GET UP WITHOUT HELP. PT REPORTED HE WAS "WASHED DOWN WITH SWEAT". PT HAS PMH OF CHF, CAD, BPH, HTN, OA. PT ADMITTED FOR TREATMENT OF ACUTE AMS, R/O CVA. WE CONTINUED TO MONITOR AND TREAT PATIENT. DAY TWO, 82 WM DIRECT ADMIT ON 08/19 WITH AMS. PT ALERT, AWAKE AND ORIENTED THIS AM. PT DENIED ANY CHEST PAIN OR INCREASES SOB. PT HAD MILDLY PRODUCTIVE COUGH AND CENTRAL RHONCHI, HE WAS ON IV ROCEPHIN. PT CE WITH ELEVATED CK. CXR WITH INCREASED VASCULAR CONGESTION. PLANNED TO CONTINUE GENTLE HYDRATION, IV ATBX, RESP THERAPY, SUPPLEMENTAL O2, LASIX IV WITH STRICT I & OS. WE CONTINUED CURRENT PLAN OF CARE AND MONITORED PATIENT. DAY THREE, 82 WM DIRECT ADMIT ON 08/19 WITH AMS. PT ALERT, AWAKE AND ORIENTED THIS AM. PT DENIED ANY CHEST PAIN OR INCREASES SOB. PT HAD MILDLY PRODUCTIVE COUGH AND CENTRAL RHONCHI, HE WAS ON IV ROCEPHIN. PT CE WITH ELEVATED CK. CXR WITH INCREASED VASCULAR CONGESTION. REPEATED AM CXR. PLANNED TO CONTINUE GENTLE HYDRATION, IV ATBX, RESP THERAPY, SUPPLEMENTAL O2, LASIX IV X 2 DOES GIVEN WITH STRICT I & OS, IMPROVING SOB PER PT, INCREASE URINE OUTPT. PT CK 5846, REPEATED CE ORDERED. SPUTUM + ENTEROBACTER SENSATIVE TO ROCEPHIN. WE CONTINUED WITH CURRENT PLAN OF CARE AND CONTINUED TO MONITOR PATIENT. DAY FIVE, PATIENT SITTING UP IN BED ALERT AND ORIENTED. PATIENT STATED THAT SYMPTOMS HAD SIGNIFICANTLY IMPROVED. VITALS WERE STABLE. LABS WITHIN NORMAL RANGE FOR PATIENT. WE PLANNED FOR DISCHARGE. INSTRUCTIONS FOR MEDICATIONS AND FOLLOW UP WERE DISCUSSED WITH PATIENT AND FAMILY, BOTH VOICED UNDERSTANDING. PATIENT DISCHARGED HOME IN STABLE CONDITION. - Discharge Medications Discharge Medications: Home Medication List clonazepam 0.5 mg PO DAILY 08/19/18 [History] folic acid 1 mg PO DAILY 08/19/18 [History] tramadol [Ultram] 50 mg PO Q6H PRN 08/19/18 [History] cefdinir 300 mg PO Q12H #20 cap 08/23/18 [Rx] Prescriptions: cefdinir Oskar Reddy Ambulatory Orders atorvastatin 15 mg PO DAILY 11/10/16 carvedilol 3.125 mg PO BID 11/10/16 tamsulosin 0.8 mg PO HS 11/10/16 warfarin 1.5 - 2 tab PO .SEE INSTRUCTIONS 11/10/16 gabapentin 300 mg PO HS #60 cap 11/12/16 - Discharge Disposition Discharge Disposition: PATIENT TO FOLLOW UP IN OUR OFFICE IN ONE WEEK.
== END 2018-08-23 11:25 | disposition home health service (06) | DRG 193 ==
LOC: MED/SURG → OBSVTOIN 16:56
PROVIDERS: ADMIT Internal Medicine; ATTEND Internal Medicine
DX: N40.0 Benign prostatic hyperplasia without lower urinary tract symptoms; Z79.01 Long term (current) use of anticoagulants; J18.0 Bronchopneumonia, unspecified organism; J44.9 Chronic obstructive pulmonary disease, unspecified; M62.82 Rhabdomyolysis; R41.82 Altered mental status, unspecified; I25.10 Atherosclerotic heart disease of native coronary artery without angina pectoris; I50.23 Acute on chronic systolic (congestive) heart failure; I11.0 Hypertensive heart disease with heart failure; B96.89 Other specified bacterial agents as the cause of diseases classified elsewhere
CPT/HCPCS: 36415; 70450; 71010; 71045; 80053; 81001; 82550; 82553; 83605; 83735; 83880; 84484; 85025; 85610; 87040; 87070; 87077; 87086; 87186; 87205; 93005; 94760; 97116; 97162; 97166; 97530; A4222; J0696; J1940; J3475; J7030

== ENCOUNTER 2023-01-05 11:21 | Inpatient (IN) ==
[2023-01-05] MEDS ORDERED: NS 1/2 1,000 ML IV 1,000 ML IV ONE ×2 (14:50→22:20)
[2023-01-05 14:51] LABS: BASOPHILS % (AUTO) 0.5 % (0.2-1.0); EOSINOPHILS % (AUTO) 0.1 % (0.9-2.9); HEMATOCRIT 37.7 % (42.0-54.0); HEMOGLOBIN 12.5 g/dL (13.5-18.0); LYMPHOCYTES # (AUTO) 0.6 X10^3/uL (1.3-2.9); LYMPHOCYTES % (AUTO) 7.8 % (21.0-51.0); MEAN CORPUSCULAR HEMOGLOBIN 30.5 pg (27.0-34.0); MEAN CORPUSCULAR HGB CONC 33.2 g/dL (33.0-35.0); MEAN PLATELET VOLUME 7.6 fL (7.4-11.0); MONOCYTES # (AUTO) 0.6 x10^3/uL (0.3-0.8); NEUTROPHILS # (AUTO) 6.8 x10^3/uL (2.2-4.8); NEUTROPHILS % (AUTO) 84.6 % (42.0-75.0); PLATELET COUNT 183 X10^3/uL (150.0-450.0); RED BLOOD COUNT 4.09 X10^6/uL (4.7-6.0); RED CELL DISTRIBUTION WIDTH 15.3 % (11.6-16.5); WHITE BLOOD COUNT 8.1 X10^3/uL (3.6-10.0)
[2023-01-05 15:09] LABS: ALANINE AMINOTRANSFERASE 26 Units/L (12-78); ALBUMIN 3.5 g/dL (3.4-5.0); ALKALINE PHOSPHATASE 142 Units/L (46-116); ASPARTATE AMINO TRANSFERASE 36 Units/L (15-37); BLOOD UREA NITROGEN 22 mg/dL (7-18); CALCIUM 8.1 mg/dL (8.5-10.1); CARBON DIOXIDE 32.1 mmol/L (21-32); CHLORIDE 103 mmol/L (98-107); COR NA(FOR HYPERGLY) 143 mmol/L (136-145); CREATININE 0.84 mg/dL (0.70-1.30); GLUCOSE 155 mg/dL (65-99); POTASSIUM 3.8 mmol/L (3.5-5.1); SODIUM 142 mmol/L (136-145); eGFR NON BLACK RACES > 60 (>60)
[2023-01-05] MEDS: NS 1/2 1,000 ML IV 1,000 ML IV SCH ×2 (15:15→22:28)
[2023-01-05] MEDS: LEVAQUIN PREMIX IV 750 MG 750 MG/150 ML BAG IV SCH (15:16)
[2023-01-05] MEDS ORDERED: XOPENEX 1.25 MG/3 ML NEBULE NEB ONE (16:31)
[2023-01-05] MEDS: XOPENEX 1.25 MG/3 ML NEBULE NEB SCH (16:35)
[2023-01-05] MEDS: HALDOL INJ IM PRN (19:09)
[2023-01-05] MEDS: LASIX IVP SCH (19:12)
[2023-01-05 19:36] LABS: BILIRUBIN,URINE NEGATIVE (NEGATIVE); BLOOD/HEMOGLOBIN,URINE 5+ (NEGATIVE); GLUCOSE, URINE NEGATIVE (NEGATIVE); KETONES,URINE 2+ (NEGATIVE); LEUKOCYTE ESTERASE ,URINE 1+ (NEGATIVE); NITRITES,URINE NEGATIVE (NEGATIVE); PROTEIN,URINE 3+ (NEGATIVE); UROBILINOGEN,URINE 1+ (NORMAL)
[2023-01-05 19:57] LABS: APPEARANCE,URINE CLEAR (CLEAR); COLOR,URINE AMBER (YELLOW)
[2023-01-05 19:58] LABS: RBC,URINE 30-50 /HPF (0-3); SQUAMOUS EPITHELIAL CELL,UR RARE /HPF (NEGATIVE)
[2023-01-05] MEDS ORDERED: PULMICORT NEB TX 0.5 MG NEB ONE (19:58)
[2023-01-05 19:59] LABS: BACTERIA,URINE TRACE /HPF (NEGATIVE); HYALINE CASTS, URINE FEW /LPF (NEGATIVE)
[2023-01-05] MEDS: ULTRAM PO PRN (20:15)
[2023-01-05 20:30] LABS: INR 4.43 (0.8-1.3)
[2023-01-05] MEDS: ROBITUSSIN DM PO PRN (20:48)
[2023-01-05] MEDS ORDERED: COUMADIN TAB 7.5 MG (JANTOVEN) PO SCH (21:00)
[2023-01-05] MEDS: PULMICORT NEB TX 0.5 MG NEB SCH (21:43)
[2023-01-06] MEDS: XOPENEX 1.25 MG/3 ML NEBULE NEB SCH ×6 (00:27→17:08)
[2023-01-06] MEDS: HALDOL INJ IM PRN (02:37)
[2023-01-06] MEDS: NS 1/2 1,000 ML IV 1,000 ML IV SCH ×2 (05:20→14:31)
[2023-01-06 06:10] LABS: BASOPHILS % (AUTO) 0.3 % (0.2-1.0); HEMATOCRIT 37.7 % (42.0-54.0); HEMOGLOBIN 12.5 g/dL (13.5-18.0); LYMPHOCYTES # (AUTO) 0.5 X10^3/uL (1.3-2.9); LYMPHOCYTES % (AUTO) 6.1 % (21.0-51.0); MEAN CORPUSCULAR HEMOGLOBIN 30.5 pg (27.0-34.0); MEAN CORPUSCULAR HGB CONC 33.2 g/dL (33.0-35.0); MEAN CORPUSCULAR VOLUME 91.7 fL (80.0-100.0); MEAN PLATELET VOLUME 7.3 fL (7.4-11.0); MONOCYTES # (AUTO) 0.7 x10^3/uL (0.3-0.8); MONOCYTES % (AUTO) 8.5 % (0.0-13.0); NEUTROPHILS # (AUTO) 7.5 x10^3/uL (2.2-4.8); NEUTROPHILS % (AUTO) 85.1 % (42.0-75.0); PLATELET COUNT 177 X10^3/uL (150.0-450.0); RED BLOOD COUNT 4.11 X10^6/uL (4.7-6.0); RED CELL DISTRIBUTION WIDTH 15.3 % (11.6-16.5); WHITE BLOOD COUNT 8.8 X10^3/uL (3.6-10.0)
[2023-01-06 06:34] LABS: ALANINE AMINOTRANSFERASE 23 Units/L (12-78); ALBUMIN 3.3 g/dL (3.4-5.0); ALKALINE PHOSPHATASE 140 Units/L (46-116); ASPARTATE AMINO TRANSFERASE 29 Units/L (15-37); BLOOD UREA NITROGEN 18 mg/dL (7-18); CALCIUM 8.1 mg/dL (8.5-10.1); CARBON DIOXIDE 31.9 mmol/L (21-32); CHLORIDE 101 mmol/L (98-107); COR CA(FOR HYPOALB) 8.7 mg/dL (8.5-10.1); COR NA(FOR HYPERGLY) 144 mmol/L (136-145); CREATININE 0.85 mg/dL (0.70-1.30); GLUCOSE 137 mg/dL (65-99); POTASSIUM 3.2 mmol/L (3.5-5.1); SODIUM 143 mmol/L (136-145); TOTAL PROTEIN 6.4 g/dL (6.4-8.2); eGFR NON BLACK RACES > 60 (>60)
--- NOTE | 2023-01-06 06:47 | RAD ---
HISTORYAtrial fibrillationSTUDYChest AP portableCOMPARISONNoneFINDINGSPatient is status post median sternotomy and CABG. The heart is enlarged. No congestive heart failure is noted. No definite acute alveolar infiltrates or pleural effusions are identified. Bony thorax is unremarkable.IMPRESSIONCardiomegaly without congestive heart failureNo definite infiltratesElectronically signed by: ISABELLE CALVO (Jan 06, 2023 06:46:55)
--- NOTE | 2023-01-06 07:49 | RAD ---
HISTORYPneumoniaSTUDYPortable AP chestCOMPARISONApril 2022FINDINGSSimilar cardiac enlargement with sternal wires. Interval increase in bilateral interstitial process without evidence for lobar consolidation or pleural effusion.IMPRESSIONIncreasing interstitial pulmonary pattern since 1 day earlier is consistent with developing inflammatory and/or congestive process.Electronically signed by: OG CHANG (Jan 06, 2023 07:48:02)
[2023-01-06] MEDS: PULMICORT NEB TX 0.5 MG NEB SCH ×2 (08:08→20:07)
[2023-01-06] MEDS: LEVAQUIN PREMIX IV 750 MG 750 MG/150 ML BAG IV SCH (09:23)
[2023-01-06] MEDS: LASIX IVP SCH (09:24)
[2023-01-06] MEDS: K-DUR TAB 20 MEQ PO PRN (09:24)
[2023-01-06] MEDS ORDERED: LASIX IVP ONE (09:32)
[2023-01-06] MEDS: CLARITIN-D 12 HOUR TAB PO SCH ×2 (10:30→20:30)
[2023-01-06] MEDS: FLONASE NASAL SPRAY ENOSTRIL SCH ×2 (10:30→20:36)
[2023-01-06] MEDS ORDERED: MAGNESIUM SULFATE 1 GRAM/100 mL PREMIX 1 G/100 ML BAG IV PRN (16:25)
[2023-01-06] MEDS ORDERED: LASIX PO SCH (17:00)
[2023-01-06] MEDS: ROBITUSSIN DM PO PRN (20:30)
[2023-01-06] MEDS: ULTRAM PO PRN (20:30)
--- NOTE | 2023-01-06 20:42 | DR.UPDATE ---
H&P Update H&P Reviewed: Yes Any changes to H&P?: Yes Changes noted:: WAS AN ADMISSION FOR TREATMENT OF CHF EXACERBATION AND ACUTE BRONCHITIS. ON ARRIVAL TO THE HOSPITAL, HIS VITALS WERE: 98.1-73-22-95%-158/90. HE WAS ON NASAL CANNULA AT 2 LPM AT THE TIME THAT VITALS WERE TAKEN. LABS WERE OBTAINED. WBC 8.1, RBC 4.09, HGB 12.5, HCT 37.7, PLT COUNT 183, INR 4.43, SODIUM 143, POTASSIUM 3.8, CHLORIDE 103, CARBON DIOXIDE 32.1, BUN 22, CREATININE 0.84, GLUCOSE 155, CALCIUM 8.1, AST 36, ALT 26, ALK PHOS 142, TOTAL PROTEIN 6.0, ALBUMIN 3.5. A LUNDY CATHETER WAS INSERTED AND A URINALYSIS WAS OBTAINED. WBC 0-2, RBC 30-50, BACTERIA TRACE, LEUKOCYTES 1+, BLOOD 5+. BLOOD AND SPUTUM CULTURES WERE SET UP. AN AIT PANEL WAS ALSO SET UP. A CHEST XRAY WAS OBTAINED AND REVEALED: Patient is status post median sternotomy and CABG. The heart is enlarged. No congestive heart failure is noted. No definite acute alveolar infiltrates or pleural effusions are identified. Bony thorax is unremarkable. HE WAS STARTED ON FUROSEMIDE 40MG IV BID, LEVAQUIN 750MG IV DAILY, PULMICORT NEBS BID, XOPENEX NEBS Q6H, ROBITUSSIN DM 10ML QID, TUSSIONEX 5ML Q12H PRN, FLONASE 1 SPRAY BID, CLARITIN D 1 TAB Q12H, ULTRAM 50MG Q4H PRN, HALDOL 2- 4MG IM Q4H PRN, AND THE POTASSIUM AND MAGNESIUM PROTOCOLS. OTHERWISE, WE WILL FOLLOW-UP WITH AM LABS AND CHEST XRAY AND CONTINUE TO MONITOR. TIME SPENT ON CLINICAL ASSESSMENT, REVIEWING LABS AND IMAGING, DECISION MAKING, AND DOCUMENTATION GREATER THAN 75 MINUTES. Patient was examined?: Yes
[2023-01-07] MEDS: XOPENEX 1.25 MG/3 ML NEBULE NEB SCH ×4 (00:07→17:00)
[2023-01-07] MEDS: ULTRAM PO PRN (01:34)
[2023-01-07] MEDS: HALDOL INJ IM PRN ×2 (03:00→07:36)
[2023-01-07 06:21] LABS: BASOPHILS % (AUTO) 0.2 % (0.2-1.0); HEMATOCRIT 36.5 % (42.0-54.0); HEMOGLOBIN 12.3 g/dL (13.5-18.0); LYMPHOCYTES # (AUTO) 0.8 X10^3/uL (1.3-2.9); LYMPHOCYTES % (AUTO) 8.4 % (21.0-51.0); MEAN CORPUSCULAR HEMOGLOBIN 30.7 pg (27.0-34.0); MEAN CORPUSCULAR HGB CONC 33.7 g/dL (33.0-35.0); MEAN CORPUSCULAR VOLUME 90.9 fL (80.0-100.0); MEAN PLATELET VOLUME 7.6 fL (7.4-11.0); MONOCYTES # (AUTO) 0.8 x10^3/uL (0.3-0.8); MONOCYTES % (AUTO) 8.8 % (0.0-13.0); NEUTROPHILS # (AUTO) 7.5 x10^3/uL (2.2-4.8); NEUTROPHILS % (AUTO) 82.6 % (42.0-75.0); PLATELET COUNT 171 X10^3/uL (150.0-450.0); RED BLOOD COUNT 4.01 X10^6/uL (4.7-6.0); RED CELL DISTRIBUTION WIDTH 15.3 % (11.6-16.5)
[2023-01-07 06:24] LABS: INR 4.51 (0.8-1.3)
[2023-01-07 06:40] LABS: ALANINE AMINOTRANSFERASE 22 Units/L (12-78); ALBUMIN 3.1 g/dL (3.4-5.0); ALKALINE PHOSPHATASE 137 Units/L (46-116); ASPARTATE AMINO TRANSFERASE 26 Units/L (15-37); BLOOD UREA NITROGEN 18 mg/dL (7-18); CALCIUM 8.2 mg/dL (8.5-10.1); CARBON DIOXIDE 37.7 mmol/L (21-32); CHLORIDE 101 mmol/L (98-107); COR CA(FOR HYPOALB) 8.9 mg/dL (8.5-10.1); COR NA(FOR HYPERGLY) 145 mmol/L (136-145); CREATININE 0.88 mg/dL (0.70-1.30); GLUCOSE 139 mg/dL (65-99); MAGNESIUM 2.1 mg/dL (2.0-2.9); POTASSIUM 3.4 mmol/L (3.5-5.1); SODIUM 144 mmol/L (136-145); TOTAL PROTEIN 6.2 g/dL (6.4-8.2); eGFR NON BLACK RACES > 60 (>60)
[2023-01-07] MEDS: TUSSIONEX PENNKINETIC SUSP PO PRN ×2 (07:36→21:11)
--- NOTE | 2023-01-07 08:07 | RAD ---
HISTORYCHF, SOBSTUDYCHEST, 1 [id number] is more opacity in the right lung than previously. This may be progressed asymmetric edema or pneumonia. Findings in the left lung may have improved slightly.Cardiomegaly is present. Vascular calcifications are present compatible with atherosclerosis.Bones are unremarkable.Median sternotomy wires are present.IMPRESSION1. Bilateral pneumonia or pulmonary edema, progressed on the right and improved on the leftElectronically signed by: Raudel Hood (Jan 07, 2023 08:06:09)
[2023-01-07] MEDS: LEVAQUIN PREMIX IV 750 MG 750 MG/150 ML BAG IV SCH (08:13)
[2023-01-07] MEDS: CLARITIN-D 12 HOUR TAB PO SCH ×2 (08:13→21:22)
[2023-01-07] MEDS: FLONASE NASAL SPRAY ENOSTRIL SCH ×2 (08:13→21:13)
[2023-01-07] MEDS: K-DUR TAB 20 MEQ PO PRN (08:15)
--- NOTE | 2023-01-07 08:28 | EKG ---
Test Reason : taqchycardia Blood Pressure : */* mmHG Vent. Rate : 146 BPM Atrial Rate : 326 BPM P-R Int : * ms QRS Dur : 88 ms QT Int : 284 ms P-R-T Axes : * 14 24 degrees QTc Int : 442 ms Probable atrial fibrillation with pvc's and aberrant beats Nonspecific ST abnormality Abnormal ECG No previous ECGs available Confirmed by Diego Sawyer ([id number]) on 01/09/2023 3:27:29 PM Referred By: Confirmed By: Diego Sawyer
[2023-01-07] MEDS ORDERED: LASIX IVP SCH (09:00)
[2023-01-07] MEDS: PULMICORT NEB TX 0.5 MG NEB SCH ×2 (09:13→21:20)
[2023-01-07] MEDS ORDERED: LANOXIN INJ IVP ONE (09:25)
[2023-01-07] MEDS: FOLIC ACID TAB 1 MG PO SCH (09:42)
[2023-01-07] MEDS: NAMENDA TAB 10 MG PO SCH ×2 (09:42→21:11)
[2023-01-07] MEDS: FLOMAX PO SCH ×2 (09:42→21:10)
[2023-01-07] MEDS: MICRO K EXTEN CAP 10 MEQ PO SCH (09:43)
[2023-01-07] MEDS: COREG TAB 3.125 MG PO SCH ×2 (09:43→21:11)
[2023-01-07] MEDS: ARICEPT TAB 5 MG PO SCH ×2 (09:43→21:24)
[2023-01-07] MEDS: LIPITOR TAB 10 MG PO SCH (09:43)
[2023-01-07] MEDS ORDERED: CARDIZEM INJ 50 MG VIAL IVP ONE (09:52)
[2023-01-07] MEDS: CARDIZEM INJ 125 MG VIAL 125 MG in NS 100 ML IV 100 ML IV PRN ×2 (10:17→21:17)
--- NOTE | 2023-01-07 10:53 | PCM.PROG ---
Progress Note - Progress Note for Day of Date of Exam: 01/07/23 - Subjective Subjective: IS CURRENTLY INPATIENT STATUS FOR TREATMENT OF CHF EXACERBATION AND ACUTE BRONCHITIS. HE HAS A PMH OF DEMENTIA, GLAUCOMA, GERD, BPH, CAD, ATRIAL FIBRILLATION, CARDIAC STENTS, CABG, AND TONSILLECTOMY. HE CONTINUES TO COMPLAIN OF A PRODUCTIVE COUGH, SHORTNESS OF BREATH, AND WEAKNESS THIS MORNING. ON EXAMINATION, HE IS NOTED TO BE TACHYCARDIC WITH HR ANYWHERE FROM THE 130s-170s. ATRIAL FIBRILLATION IS NOTED. BILATERAL LUNGS ARE NOTED WITH RALES THROUGHOUT. ABDOMEN IS ROUND, SOFT, AND NON-TENDER WITH NORMAL BOWEL SOUNDS NOTED IN ALL QUADRANTS. GOOD MOVEMENT NOTED IN UPPER AND LOWER EXTREMITIES WITH TRACE LOWER EXTREMITY EDEMA NOTED. HIS VITALS THIS MORNING ARE: 98.9-138-24-96%-118/87. HE IS CURRENTLY UTILIZING OXYGEN VIA NASAL CANNULA AT 2 LPM. LABS WERE OBTAINED. WBC 9.0, RBC 4.01, HGB 12.3, HCT 36.5, PLT COUNT 171, INR 4.51, SODIUM 144, POTASSIUM 3.4, CHLORIDE 101, CARBON DIOXIDE 37.7, BUN 18, CREATININE 0.88, GLUCOSE 139, CALCIUM 8.2, MAGNESIUM 2.1, AST 26, ALT 22, ALK P HOS 137, BNP 776, TOTAL PROTEIN 6.2, ALBUMIN 3.1. BLOOD AND SPUTUM CULTURES ARE PENDING. AIT POSITIVE FOR PARAINFLUENZA VIRUS. A CHEST XRAY WAS OBTAINED AND REVEALED: There is more opacity in the right lung than previously. This may be progressed asymmetric edema or pneumonia. Findings in the left lung may have improved slightly. Cardiomegaly is present. Vascular calcifications are present compatible with atherosclerosis. Bones are unremarkable. Median sternotomy wires are present. AN ECHO WAS OBTAINED YESTERDAY AND REVEALED AN EJECTION FRACTION OF 37% AND SEVERE PULMONARY HYPERTENSION. HE IS CURRENTLY RECEIVING FUROSEMIDE 40MG IV BID, LEVAQUIN 750MG IV DAILY, PULMICORT NEBS BID, XOPENEX NEBS Q6H, ROBITUSSIN DM 10ML QID, TUSSIONEX 5ML Q12H PRN, FLONASE 1 SPRAY BID, CLARITIN D 1 TAB Q12H, ULTRAM 50MG Q4H PRN, HALDOL 2-4MG IM Q4H PRN, AND THE POTASSIUM AND MAGNESIUM PROTOCOLS. HIS HOME MEDICATIONS OF GABAPENTIN, MEMANTINE, GABAPENTIN, DONEPEZIL, POTASSIUM CHLORIDE, FOLIC ACID, TAMSULOSIN, ATORVASTATIN, AND CARVEDILOL WERE ALSO RESUMED. TODAY, WE WILL START HIM ON A CARDIZEM DRIP AND D IGOXIN 0.125MG DAILY. OTHERWISE, WE WILL FOLLOW-UP WITH AM LABS AND CHEST XRAY AND CONTINUE TO MONITOR. TIME SPENT ON CLINICAL ASSESSMENT, REVIWING LABS AND IMAGING, DECISION MAKING, AND DOCUMENTATION GREATER THAN 45 MINUTES. - Past Medical Family Social History Past Med/Fam/Surg Hx: No changes since H&P Allergies: Allergies No Known Drug Allergies Allergy (Verified 01/05/23 14:13) - Review of Systems ROS: No change since H&P - Vital Signs and I&O's Vital Signs: Temperature 98.9 F Pulse Rate [Left Brachial] 138 Pulse Rate 94 Respiratory Rate 24 Blood Pressure [Left Thigh] 152/80 Blood Pressure [Right Arm] 118/87 Blood Pressure [Left Arm] 131/94 Blood Pressure 109/72 O2 Sat by Pulse Oximetry 96 Intake and Output: Intake & Output 01/04/23 01/05/23 01/06/23 01/07/23 11:59 11:59 11:59 11:59 Intake Total 1770 / 1770 1790 / 1790 Output Total 1700 / 1700 3150 / 3150 Balance 70 / 70 -1360 / -1360 - Physical Exam Oriented: Normal Eyes: Normal Ear: Normal Nose: Normal Throat: Normal Respiratory: Generalized, Rales Cardiovascular: Tachycardia, Irregular (A-FIB ), Edema (TRACE ) : Normal Auscultation: Bowel Sounds: Normal Palpation: Normal Tenderness: Normal Skin: Normal Musculoskeletal: Normal Psychiatric: Normal Mood Description: Calm Affect: Normal Speech Pattern: Clear, Appropriate - Laboratory and Diagnostics Result Diagrams: 01/07/23 06:02 01/07/23 06:02 Labs: 01/05/23 14:00 Sputum - Expectorated Sputum Sputum Culture - Final 01/05/23 14:00 Sputum - Expectorated Sputum - Final Laboratory WBC 9.0 X10^3/uL (3.6-10.0) 01/07/23 06:02 RBC 4.01 X10^6/uL (4.7-6.0) L 01/07/23 06:02 Hgb 12.3 g/dL (13.5-18.0) L 01/07/23 06:02 Hct 36.5 % (42.0-54.0) L 01/07/23 06:02 MCV 90.9 fL (80.0-100.0) 01/07/23 06:02 MCH 30.7 pg (27.0-34.0) 01/07/23 06:02 MCHC 33.7 g/dL (33.0-35.0) 01/07/23 06:02 RDW 15.3 % (11.6-16.5) 01/07/23 06:02 Plt Count 171 X10^3/uL (150.0-450.0) 01/07/23 06:02 MPV 7.6 fL (7.4-11.0) 01/07/23 06:02 Neut % (Auto) 82.6 % (42.0-75.0) H 01/07/23 06:02 Lymph % (Auto) 8.4 % (21.0-51.0) L 01/07/23 06:02 [place] % (Auto) 8.8 % (0.0-13.0) 01/07/23 06:02 Eos % (Auto) 0.0 % (0.9-2.9) L 01/07/23 06:02 Baso % (Auto) 0.2 % (0.2-1.0) 01/07/23 06:02 Neut # (Auto) 7.5 x10^3/uL (2.2-4.8) H 01/07/23 06:02 Lymph # (Auto) 0.8 X10^3/uL (1.3-2.9) L 01/07/23 06:02 [place] # (Auto) 0.8 x10^3/uL (0.3-0.8) 01/07/23 06:02 Eos # (Auto) 0.0 x10^3/uL (0.0-0.2) 01/07/23 06:02 Baso # (Auto) 0.0 X10^3/uL (0.0-0.1) 01/07/23 06:02 Absolute Nucleated RBC 0.1 /100WBC 01/07/23 06:02 PT 42.2 SECONDS (11.8-14.3) 01/07/23 06:02 INR Target Range - 01/07/23 06:02 INR 4.51 (0.8-1.3) H 01/07/23 06:02 Sodium 144 mmol/L (136-145) 01/07/23 06:02 Corrected Sodium 145 mmol/L (136-145) 01/07/23 06:02 Potassium 3.4 mmol/L (3.5-5.1) L 01/07/23 06:02 Chloride 101 mmol/L (98-107) 01/07/23 06:02 Carbon Dioxide 37.7 mmol/L (21-32) H 01/07/23 06:02 BUN 18 mg/dL (7-18) 01/07/23 06:02 Creatinine 0.88 mg/dL (0.70-1.30) 01/07/23 06:02 Est GFR (MDRD) Af Amer > 60 (>60) 01/07/23 06:02 Est GFR (MDRD) Non-Af > 60 (>60) 01/07/23 06:02 Glucose 139 mg/dL (65-99) H 01/07/23 06:02 Calcium 8.2 mg/dL (8.5-10.1) L 01/07/23 06:02 Corrected Calcium 8.9 mg/dL (8.5-10.1) 01/07/23 06:02 Magnesium 2.1 mg/dL (2.0-2.9) 01/07/23 06:02 Total Bilirubin 1.00 mg/dL (0.2-1.0) 01/07/23 06:02 AST 26 Units/L (15-37) 01/07/23 06:02 ALT 22 Units/L (12-78) 01/07/23 06:02 Alkaline Phosphatase 137 Units/L (46-116) H 01/07/23 06:02 B-Natriuretic Peptide 776 pg/mL (0-79) H* 01/07/23 06:02 Total Protein 6.2 g/dL (6.4-8.2) L 01/07/23 06:02 Albumin 3.1 g/dL (3.4-5.0) L 01/07/23 06:02 Globulin 3.1 g/dL (2.5-4.5) 01/07/23 06:02 Albumin/Globulin Ratio 1.0 Ratio (1.1-2.1) L 01/07/23 06:02 Specimen Type Catherized urine 01/05/23 19: Urine Color [place] (YELLOW) 01/05/23 19: Urine Appearance Clear (CLEAR) 01/05/23 19: Urine pH 5.0 (5.0 - 8.0) 01/05/23 19: Ur Specific [place] 1.030 (1.000-1.030) 01/05/23 19: Urine Protein 3+ (NEGATIVE) 01/05/23 19: Urine Glucose (UA) Negative (NEGATIVE) 01/05/23: Urine Ketones 2+ (NEGATIVE) 01/05/23: Urine Blood 5+ (NEGATIVE) 01/05/23: Urine Nitrite Negative (NEGATIVE) 01/05/23: Urine Bilirubin Negative (NEGATIVE) 01/05/23: Urine Urobilinogen 1+ (NORMAL) 01/05/23: Ur Leukocyte Esterase 1+ (NEGATIVE) 01/05/23 19: Urine RBC 30-50 /HPF (0-3) A 01/05/23 19: Urine WBC 0-2 /HPF (0-5) 01/05/23 19: Ur Squamous Epith Cells Rare /HPF (NEGATIVE) 01/05/23 19: Urine Bacteria Trace /HPF (NEGATIVE) 01/05/23 19: Hyaline Casts Few /LPF (NEGATIVE) 01/05/23 19: Urine Mucus Many /HPF (NEGATIVE) 01/05/23 19: Ur Culture Indicated? No/not indicated 01/05/23 19: Resp Viral Panel (PCR) See scanned report 01/05/23 14:00 - Plan (1) CHF (congestive heart failure) Status: Chronic Qualifiers: Heart failure type: unspecified Heart failure chronicity: acute on chronic Qualified Code(s): I50.9 - Heart failure, unspecified Plan: CARDIZEM DRIP, DIGOXIN 0.125MG DAILY, FUROSEMIDE 40MG IV BID, LEVAQUIN 750 MG IV DAILY, PULMICORT NEBS BID, XOPENEX NEBS Q6H, ROBITUSSIN DM 10ML QID, TUSSIONEX 5ML Q12H PRN, FLONASE 1 SPRAY BID, CLARITIN D 1 TAB Q12H, ULTRAM 50MG Q4H PRN, HALDOL 2-4MG IM Q4H PRN, AND THE POTASSIUM AND MAGNESIUM PROTOCOLS. RESUME HOME MEDS (2) Atrial fibrillation with RVR Status: Acute (3) Acute bronchitis Status: Acute Qualifiers: Bronchitis organism: parainfluenza virus Qualified Code(s): J20.4 - Acute bronchitis due to parainfluenza virus (4) Hypokalemia Status: Acute (5) Dementia Status: Chronic Qualifiers: Dementia type: unspecified type Dementia severity: moderate Dementia beha vioral or psychological symptom: with agitation Qualified Code(s): F03.B11 - Unspecified dementia, moderate, with agitation (6) BPH (benign prostatic hyperplasia) Status: Chronic Qualifiers: Lower urinary tract symptom presence: unspecified whether lower urinary tract symptoms present Qualified Code(s): N40.0 - Benign prostatic hyperplasia without lower urinary tract symptoms (7) GERD (gastroesophageal reflux disease) Status: Chronic Qualifiers: Esophagitis presence: esophagitis presence not specified Qualified Code(s): K21.9 - Gastro-esophageal reflux disease without esophagitis (8) CAD (coronary artery disease) Status: Chronic Qualifiers: Coronary Disease-Associated Artery/Lesion type: bypass graft [place] vs. transplanted heart: [place] heart Associated angina: unspecified whether angina present Qualified Code(s): I25.810 - Atherosclerosis of coronary artery bypass graft(s) without angina pectoris
[2023-01-07] MEDS: LASIX IVP SCH (17:08)
[2023-01-07] MEDS: NEURONTIN CAP 300 MG PO SCH (21:11)
[2023-01-08] MEDS: XOPENEX 1.25 MG/3 ML NEBULE NEB SCH ×4 (04:35→17:33)
[2023-01-08 05:37] LABS: HEMOGLOBIN 12.4 g/dL (13.5-18.0); MEAN CORPUSCULAR VOLUME 91.2 fL (80.0-100.0)
[2023-01-08 05:40] LABS: BASOPHILS % (AUTO) 0.2 % (0.2-1.0); EOSINOPHILS % (AUTO) 0.7 % (0.9-2.9); HEMATOCRIT 37.5 % (42.0-54.0); LYMPHOCYTES # (AUTO) 0.8 X10^3/uL (1.3-2.9); LYMPHOCYTES % (AUTO) 11.7 % (21.0-51.0); MEAN CORPUSCULAR HEMOGLOBIN 30.3 pg (27.0-34.0); MEAN CORPUSCULAR HGB CONC 33.2 g/dL (33.0-35.0); MEAN PLATELET VOLUME 7.5 fL (7.4-11.0); MONOCYTES # (AUTO) 0.6 x10^3/uL (0.3-0.8); MONOCYTES % (AUTO) 8.9 % (0.0-13.0); NEUTROPHILS # (AUTO) 5.3 x10^3/uL (2.2-4.8); NEUTROPHILS % (AUTO) 78.5 % (42.0-75.0); PLATELET COUNT 176 X10^3/uL (150.0-450.0); RED BLOOD COUNT 4.11 X10^6/uL (4.7-6.0); RED CELL DISTRIBUTION WIDTH 15.1 % (11.6-16.5); WHITE BLOOD COUNT 6.7 X10^3/uL (3.6-10.0)
[2023-01-08 05:52] LABS: ALANINE AMINOTRANSFERASE 18 Units/L (12-78); ALBUMIN 2.8 g/dL (3.4-5.0); ALKALINE PHOSPHATASE 127 Units/L (46-116); ASPARTATE AMINO TRANSFERASE 24 Units/L (15-37); BLOOD UREA NITROGEN 17 mg/dL (7-18); CARBON DIOXIDE 40.4 mmol/L (21-32); CHLORIDE 100 mmol/L (98-107); COR NA(FOR HYPERGLY) 141 mmol/L (136-145); CREATININE 0.83 mg/dL (0.70-1.30); DIGOXIN 0.69 ng/mL (0.9-2); GLUCOSE 113 mg/dL (65-99); POTASSIUM 3.3 mmol/L (3.5-5.1); SODIUM 141 mmol/L (136-145); TOTAL PROTEIN 5.8 g/dL (6.4-8.2); eGFR NON BLACK RACES > 60 (>60)
[2023-01-08] MEDS: ROBITUSSIN DM PO PRN (06:11)
[2023-01-08] MEDS: PULMICORT NEB TX 0.5 MG NEB SCH ×2 (08:16→20:45)
[2023-01-08] MEDS: FLOMAX PO SCH ×2 (09:42→20:12)
[2023-01-08] MEDS: MICRO K EXTEN CAP 10 MEQ PO SCH (09:42)
[2023-01-08] MEDS: FOLIC ACID TAB 1 MG PO SCH (09:42)
[2023-01-08] MEDS: LIPITOR TAB 10 MG PO SCH (09:42)
[2023-01-08] MEDS: NAMENDA TAB 10 MG PO SCH ×2 (09:42→20:12)
[2023-01-08] MEDS: ARICEPT TAB 5 MG PO SCH ×2 (09:42→20:13)
[2023-01-08] MEDS: LANOXIN or DIGITEK PO SCH (09:43)
[2023-01-08] MEDS: LEVAQUIN PREMIX IV 750 MG 750 MG/150 ML BAG IV SCH (09:43)
[2023-01-08] MEDS: FLONASE NASAL SPRAY ENOSTRIL SCH ×2 (09:43→20:12)
[2023-01-08] MEDS: COREG TAB 3.125 MG PO SCH ×2 (09:43→20:12)
[2023-01-08] MEDS: LASIX IVP SCH ×2 (09:44→16:20)
[2023-01-08] MEDS: CLARITIN-D 12 HOUR TAB PO SCH (09:44)
--- NOTE | 2023-01-08 10:03 | PCM.PROG ---
Progress Note - Progress Note for Day of Date of Exam: 01/08/23 - Subjective Subjective: IS CURRENTLY INPATIENT STATUS FOR TREATMENT OF CHF EXACERBATION, ATRIAL FIBRILLATION, AND ACUTE BRONCHITIS. HE HAS A PMH OF DEMENTIA, GLAUCOMA, GERD, BPH, CAD, ATRIAL FIBRILLATION, CARDIAC STENTS, CABG, AND TONSILLECTOMY. HE REMAINS IN THE INTENSIVE CARE UNIT ON A CARDIZEM DRIP. HE CONTINUES TO COMPLAIN OF A PRODUCTIVE COUGH, SHORTNESS OF BREATH, AND WEAKNESS THIS MORNING. ON EXAMINATION, HE IS NOTED TO BE TACHYCARDIC WITH HR ANYWHERE FROM THE 90s-110 bpm. ATRIAL FIBRILLATION IS NOTED ON THE GENERATING STATION MECHANIC. BILATERAL LUNGS ARE NOTED WITH RALES THROUGHOUT. ABDOMEN IS ROUND, SOFT, AND NON-TENDER WITH NORMAL BOWEL SOUNDS NOTED IN ALL QUADRANTS. GOOD MOVEMENT NOTED IN UPPER AND LOWER EXTREMITIES WITH TRACE LOWER EXTREMITY EDEMA NOTED. HIS VITALS THIS MORNING ARE: 98.3-107-24-98%-131/81. HE IS CURRENTLY UTILIZING OXYGEN VIA NASAL CANNULA AT 2 LPM. LABS WERE OBTAINED. WBC 6.7, RBC 4.11, HGB 12.4, HCT 37.5, PLT COUNT 176, INR 3.90, SODIUM 141, POTASSIUM 3.3, CHLORIDE 100, CARBON DIOXIDE 40.4, BUN 17, CREATININE 0.83, GLUCOSE 113, CALCIUM 8.0, TOTAL BILI 1.10, AST 24, ALT 18, ALK PHOS 127, BNP 322, TOTAL PROTEIN 5.8, ALBUMIN 2.8, DIGOXIN 0.69. BLOOD AND SPUTUM CULTURES ARE PENDING. AIT POSITIVE FOR PARAINFLUENZA VIRUS. AN ECHO WAS OBTAINED ON 01/06 AND REVEALED AN EJECTION FRACTION OF 37% AND SEVERE PULMONARY HYPERTENSION. HE IS CURRENTLY ON A CARDIZEM DRIP, DIGOXIN 0.125MG DAILY, FUROSEMIDE 40MG IV BID, LEVAQUIN 750MG IV DAILY, PULMICORT NEBS BID, XOPENEX NEBS Q6H, ROBITUSSIN DM 10ML QID, TUSSIONEX 5ML Q12H PRN, FLONASE 1 SPRAY BID, CLARITIN D 1 TAB Q12H, ULTRAM 50MG Q4H PRN, HALDOL 2- 4MG IM Q4H PRN, AND THE POTASSIUM AND MAGNESIUM PROTOCOLS. HIS HOME MEDICATIONS OF GABAPENTIN, MEMANTINE, GABAPENTIN, DONEPEZIL, POTASSIUM CHLORIDE, FOLIC ACID, TAMSULOSIN, ATORVASTATIN, AND CARVEDILOL WERE ALSO RESUMED. WE WILL CONTINUE WITH CURRENT PLAN OF CARE TODAY. OTHERWISE, WE WILL FOLLOW-UP WITH AM LABS AND CHEST XRAY AND CONTINUE TO MONITOR. TIME SPENT ON CLINICAL ASSESSMENT, REVIWING LABS AND IMAGING, DECISION MAKING, AND DOCUMENTATION GREATER THAN 45 MINUTES. - Past Medical Family Social History Past Med/Fam/Surg Hx: No changes since H&P Allergies: Allergies No Known Drug Allergies Allergy (Verified 01/05/23 14:13) - Review of Systems ROS: No change since H&P - Vital Signs and I&O's Vital Signs: Temperature 97.6 F Pulse Rate [Left Brachial] 95 Pulse Rate 102 Respiratory Rate 24 Blood Pressure [Left Thigh] 154/76 Blood Pressure [Right Arm] 118/87 Blood Pressure [Left Arm] 131/94 Blood Pressure 131/84 O2 Sat by Pulse Oximetry 98 Intake and Output: Intake & Output 01/05/23 01/06/23 01/07/23 01/08/23 11:59 11:59 11:59 11:59 Intake Total 1770 / 1770 1800 / 1800 1505 / 1505 Output Total 1700 / 1700 3150 / 3150 3100 / 3100 Balance 70 / 70 -1350 / -1350 -1595 / -1595 - Physical Exam Oriented: Normal Eyes: Normal Ear: Normal Nose: Normal Throat: Normal Respiratory: Generalized, Rales Cardiovascular: Tachycardia, Irregular (A-FIB ), Edema (TRACE ) : Normal Auscultation: Bowel Sounds: Normal Palpation: Normal Tenderness: Normal Skin: Normal Musculoskeletal: Normal Psychiatric: Normal Mood Description: Calm Affect: Normal Speech Pattern: Clear, Appropriate - Laboratory and Diagnostics Result Diagrams: 01/08/23 04:10 01/08/23 04:10 Labs: 01/05/23 14:30 Blood Blood Culture - Preliminary 01/05/23 14:28 Blood Blood Culture - Preliminary 01/05/23 14:00 Sputum - Expectorated Sputum Sputum Culture - Final 01/05/23 14:00 Sputum - Expectorated Sputum - Final Laboratory WBC 6.7 X10^3/uL (3.6-10.0) 01/08/23 04:10 RBC 4.11 X10^6/uL (4.7-6.0) L 01/08/23 04:10 Hgb 12.4 g/dL (13.5-18.0) L 01/08/23 04:10 Hct 37.5 % (42.0-54.0) L 01/08/23 04:10 MCV 91.2 fL (80.0-100.0) 01/08/23 04:10 MCH 30.3 pg (27.0-34.0) 01/08/23 04:10 MCHC 33.2 g/dL (33.0-35.0) 01/08/23 04:10 RDW 15.1 % (11.6-16.5) 01/08/23 04:10 Plt Count 176 X10^3/uL (150.0-450.0) 01/08/23 04:10 MPV 7.5 fL (7.4-11.0) 01/08/23 04:10 Neut % (Auto) 78.5 % (42.0-75.0) H 01/08/23 04:10 Lymph % (Auto) 11.7 % (21.0-51.0) L 01/08/23 04:10 [place] % (Auto) 8.9 % (0.0-13.0) 01/08/23 04:10 Eos % (Auto) 0.7 % (0.9-2.9) L 01/08/23 04:10 Baso % (Auto) 0.2 % (0.2-1.0) 01/08/23 04:10 Neut # (Auto) 5.3 x10^3/uL (2.2-4.8) H 01/08/23 04:10 Lymph # (Auto) 0.8 X10^3/uL (1.3-2.9) L 01/08/23 04:10 [place] # (Auto) 0.6 x10^3/uL (0.3-0.8) 01/08/23 04:10 Eos # (Auto) 0.0 x10^3/uL (0.0-0.2) 01/08/23 04:10 Baso # (Auto) 0.0 X10^3/uL (0.0-0.1) 01/08/23 04:10 Absolute Nucleated RBC 0.2 /100WBC 01/08/23 04:10 PT 37.6 SECONDS (11.8-14.3) 01/08/23 04:10 INR Target Range - 01/08/23 04:10 INR 3.90 (0.8-1.3) H 01/08/23 04:10 Sodium 141 mmol/L (136-145) 01/08/23 04:10 Corrected Sodium 141 mmol/L (136-145) 01/08/23 04:10 Potassium 3.3 mmol/L (3.5-5.1) L 01/08/23 04:10 Chloride 100 mmol/L (98-107) 01/08/23 04:10 Carbon Dioxide 40.4 mmol/L (21-32) H 01/08/23 04:10 BUN 17 mg/dL (7-18) 01/08/23 04:10 Creatinine 0.83 mg/dL (0.70-1.30) 01/08/23 04:10 Est GFR (MDRD) Af Amer > 60 (>60) 01/08/23 04:10 Est GFR (MDRD) Non-Af > 60 (>60) 01/08/23 04:10 Glucose 113 mg/dL (65-99) H 01/08/23 04:10 Calcium 8.0 mg/dL (8.5-10.1) L 01/08/23 04:10 Corrected Calcium 9.0 mg/dL (8.5-10.1) 01/08/23 04:10 Magnesium 2.1 mg/dL (2.0-2.9) 01/07/23 06:02 Total Bilirubin 1.10 mg/dL (0.2-1.0) H 01/08/23 04:10 AST 24 Units/L (15-37) 01/08/23 04:10 ALT 18 Units/L (12-78) 01/08/23 04:10 Alkaline Phosphatase 127 Units/L (46-116) H 01/08/23 04:10 B-Natriuretic Peptide 322 pg/mL (0-79) H 01/08/23 04:10 Total Protein 5.8 g/dL (6.4-8.2) L 01/08/23 04:10 Albumin 2.8 g/dL (3.4-5.0) L 01/08/23 04:10 Globulin 3.0 g/dL (2.5-4.5) 01/08/23 04:10 Albumin/Globulin Ratio 0.9 Ratio (1.1-2.1) L 01/08/23 04:10 Specimen Type Catherized urine 01/05/23 19: Urine Color [place] (YELLOW) 01/05/23 19: Urine Appearance Clear (CLEAR) 01/05/23 19: Urine pH 5.0 (5.0 - 8.0) 01/05/23 19: Ur Specific [place] 1.030 (1.000-1.030) 01/05/23 19: Urine Protein 3+ (NEGATIVE) 01/05/23 19: Urine Glucose (UA) Negative (NEGATIVE) 01/05/23: Urine Ketones 2+ (NEGATIVE) 01/05/23: Urine Blood 5+ (NEGATIVE) 01/05/23 19: Urine Nitrite Negative (NEGATIVE) 01/05/23 19: Urine Bilirubin Negative (NEGATIVE) 01/05/23: Urine Urobilinogen 1+ (NORMAL) 01/05/23 19: Ur Leukocyte Esterase 1+ (NEGATIVE) 01/05/23 19: Urine RBC 30-50 /HPF (0-3) A 01/05/23 19: Urine WBC 0-2 /HPF (0-5) 01/05/23 19: Ur Squamous Epith Cells Rare /HPF (NEGATIVE) 01/05/23 19: Urine Bacteria Trace /HPF (NEGATIVE) 01/05/23 19: Hyaline Casts Few /LPF (NEGATIVE) 01/05/23 19: Urine Mucus Many /HPF (NEGATIVE) 01/05/23 19: Ur Culture Indicated? No/not indicated 01/05/23 19: Digoxin 0.69 ng/mL (0.9-2) L 01/08/23 04:10 Resp Viral Panel (PCR) See scanned report 01/05/23 14:00 - Plan (1) CHF (congestive heart failure) Status: Chronic Qualifiers: Heart failure type: unspecified Heart failure chronicity: acute on chronic Qualified Code(s): I50.9 - Heart failure, unspecified Plan: CARDIZEM DRIP, DIGOXIN 0.125MG DAILY, FUROSEMIDE 40MG IV BID, LEVAQUIN 750MG IV DAILY, PULMICORT NEBS BID, XOPENEX NEBS Q6H, ROBITUSSIN DM 10ML QID, TUSSIONEX 5ML Q12H PRN, FLONASE 1 SPRAY BID, CLARITIN D 1 TAB Q12H, ULTRAM 50MG Q4H PRN, HALDOL 2-4MG IM Q4H PRN, AND THE POTASSIUM AND MAGNESIUM PROTOCOLS. R ESUME HOME MEDS (2) Atrial fibrillation with RVR Status: Acute (3) Acute bronchitis Status: Acute Qualifiers: Bronchitis organism: parainfluenza virus Qualified Code(s): J20.4 - Acute bronchitis due to parainfluenza virus (4) Hypokalemia Status: Acute (5) Dementia Status: Chronic Qualifiers: Dementia type: unspecified type Dementia severity: moderate Dementia behavioral or psychological symptom: with agitation Qualified Code(s): F03.B11 - Unspecified dementia, moderate, with agitation (6) BPH (benign prostatic hyperplasia) Status: Chronic Qualifiers: Lower urinary tract symptom presence: unspecified whether lower urinary tract symptoms present Qualified Code(s): N40.0 - Benign prostatic hyperplasia without lower urinary tract symptoms (7) GERD (gastroesophageal reflux disease) Status: Chronic Qualifiers: Esophagitis presence: esophagitis presence not specified Qualified Code(s): K21.9 - Gastro-esophageal reflux disease without esophagitis (8) CAD (coronary artery disease) Status: Chronic Qualifiers: Coronary Disease-Associated Artery/Lesion type: bypass graft [place] vs. transplanted heart: [place] heart Associated angina: unspecified whether angina present Qualified Code(s): I25.810 - Atherosclerosis of coronary artery bypass graft(s) without angina pectoris
--- NOTE | 2023-01-08 10:36 | RAD ---
HISTORYCHF, SOB, COUGHSTUDYCHEST, 1 [id number]/2023FINDINGSThere is abnormal opacity in the right and left lung. This could be pneumonia. Findings on the right side may have improved. Findings on the left side have progressed.No pleural effusion or pneumothorax.Cardiomegaly is present. Vascular calcifications are present compatible with atherosclerosis.Bones are unremarkable.Median sternotomy wires are present. EKG leads are noted.IMPRESSION1. Bilateral pneumonia, improved on the right and progressed on the leftElectronically signed by: Raudel Hood (Jan 08, 2023 10:35:12)
[2023-01-08] MEDS ORDERED: POTASSIUM CHLORIDE LIQ 20 MEQ UDC PO PRN (14:00)
[2023-01-08] MEDS ORDERED: POTASSIUM CHL 60 MEQ/NS 0.45% 500 ML IV PRN (14:00)
[2023-01-08] MEDS ORDERED: KLOR-CON PO PRN (14:00)
[2023-01-08] MEDS ORDERED: K-DUR TAB 20 MEQ PO PRN (14:00)
[2023-01-08] MEDS ORDERED: POTASSIUM CHL 40 MEQ/NS 0.45% 500 ML IV PRN (14:00)
[2023-01-08] MEDS: K-RIDER 10 MEQ/NS 100 ML 10 MEQ/100 ML BAG IV PRN ×2 (14:28→16:20)
[2023-01-08] MEDS: CARDIZEM INJ 125 MG VIAL 125 MG in NS 100 ML IV 100 ML IV PRN (14:29)
[2023-01-08] MEDS: NEURONTIN CAP 300 MG PO SCH (20:13)
[2023-01-08] MEDS: TUSSIONEX PENNKINETIC SUSP PO PRN (20:14)
[2023-01-09] MEDS: XOPENEX 1.25 MG/3 ML NEBULE NEB SCH ×5 (00:36→21:15)
[2023-01-09] MEDS: ULTRAM PO PRN (02:00)
[2023-01-09 05:02] LABS: BASOPHILS % (AUTO) 0.3 % (0.2-1.0); EOSINOPHILS # (AUTO) 0.1 x10^3/uL (0.0-0.2); EOSINOPHILS % (AUTO) 0.9 % (0.9-2.9); HEMATOCRIT 38.2 % (42.0-54.0); HEMOGLOBIN 12.8 g/dL (13.5-18.0); LYMPHOCYTES # (AUTO) 0.7 X10^3/uL (1.3-2.9); LYMPHOCYTES % (AUTO) 8.3 % (21.0-51.0); MEAN CORPUSCULAR HEMOGLOBIN 30.3 pg (27.0-34.0); MEAN CORPUSCULAR HGB CONC 33.6 g/dL (33.0-35.0); MEAN CORPUSCULAR VOLUME 90.4 fL (80.0-100.0); MEAN PLATELET VOLUME 7.6 fL (7.4-11.0); MONOCYTES # (AUTO) 0.8 x10^3/uL (0.3-0.8); MONOCYTES % (AUTO) 9.4 % (0.0-13.0); NEUTROPHILS # (AUTO) 6.5 x10^3/uL (2.2-4.8); NEUTROPHILS % (AUTO) 81.1 % (42.0-75.0); PLATELET COUNT 203 X10^3/uL (150.0-450.0); RED BLOOD COUNT 4.23 X10^6/uL (4.7-6.0)
[2023-01-09 05:26] LABS: ALANINE AMINOTRANSFERASE 19 Units/L (12-78); ALBUMIN 2.8 g/dL (3.4-5.0); ALKALINE PHOSPHATASE 134 Units/L (46-116); ASPARTATE AMINO TRANSFERASE 24 Units/L (15-37); BLOOD UREA NITROGEN 15 mg/dL (7-18); CALCIUM 8.2 mg/dL (8.5-10.1); CARBON DIOXIDE 42.6 mmol/L (21-32); CHLORIDE 97 mmol/L (98-107); COR CA(FOR HYPOALB) 9.2 mg/dL (8.5-10.1); COR NA(FOR HYPERGLY) 139 mmol/L (136-145); CREATININE 0.88 mg/dL (0.70-1.30); DIGOXIN 0.71 ng/mL (0.9-2); GLUCOSE 116 mg/dL (65-99); POTASSIUM 3.3 mmol/L (3.5-5.1); SODIUM 139 mmol/L (136-145); eGFR NON BLACK RACES > 60 (>60)
--- NOTE | 2023-01-09 06:59 | RAD ---
HISTORYSOBSTUDYCHEST, 1 [id number]/21/2023.TECHNIQUEPA or AP view of the chestFINDINGSStatus post median sternotomy and CABG. The cardiac silhouette is stably enlarged. Mediastinal contours appear stable. Similar appearing mild bibasilar patchy opacities. There is blunting of the costophrenic sulci. No pneumothorax.IMPRESSIONNo significant change compared to prior radiograph. Bibasilar mild patchy opacities may represent atelectasis or infiltrate. Blunted costophrenic sulci can be seen with small pleural effusions or pleuro-parynchemal scarring.Electronically signed by: Rashad Mireles (Jan 09, 2023 06:57:57)
[2023-01-09] MEDS: LASIX IVP SCH ×2 (08:25→17:43)
[2023-01-09] MEDS: LEVAQUIN PREMIX IV 750 MG 750 MG/150 ML BAG IV SCH (08:25)
[2023-01-09] MEDS: FLONASE NASAL SPRAY ENOSTRIL SCH ×2 (08:25→20:36)
[2023-01-09] MEDS: LANOXIN or DIGITEK PO SCH (08:28)
[2023-01-09] MEDS: LIPITOR TAB 10 MG PO SCH (08:29)
[2023-01-09] MEDS: NAMENDA TAB 10 MG PO SCH ×2 (08:29→20:26)
[2023-01-09] MEDS: FOLIC ACID TAB 1 MG PO SCH (08:29)
[2023-01-09] MEDS: COREG TAB 3.125 MG PO SCH ×2 (08:29→20:26)
[2023-01-09] MEDS: FLOMAX PO SCH ×2 (08:29→20:26)
[2023-01-09] MEDS: K-DUR TAB 20 MEQ PO PRN (08:30)
[2023-01-09] MEDS: ARICEPT TAB 5 MG PO SCH ×2 (08:30→20:26)
[2023-01-09] MEDS: PULMICORT NEB TX 0.5 MG NEB SCH ×2 (08:34→21:15)
[2023-01-09] MEDS: MICRO K EXTEN CAP 10 MEQ PO SCH (09:00)
[2023-01-09] MEDS: ROBITUSSIN DM PO SCH ×3 (13:33→20:26)
[2023-01-09] MEDS ORDERED: BUTT CREAM (COMPOUND) ONE (14:03)
[2023-01-09] MEDS: BUTT CREAM (COMPOUND) TOP PRN (14:34)
[2023-01-09] MEDS: CARDIZEM INJ 125 MG VIAL 125 MG in NS 100 ML IV 100 ML IV PRN (15:55)
[2023-01-09] MEDS: NEURONTIN CAP 300 MG PO SCH (21:00)
[2023-01-10] MEDS: XOPENEX 1.25 MG/3 ML NEBULE NEB SCH ×4 (00:36→16:36)
[2023-01-10 04:54] LABS: BASOPHILS % (AUTO) 0.2 % (0.2-1.0); EOSINOPHILS % (AUTO) 0.5 % (0.9-2.9); HEMATOCRIT 40.4 % (42.0-54.0); HEMOGLOBIN 13.6 g/dL (13.5-18.0); LYMPHOCYTES # (AUTO) 0.7 X10^3/uL (1.3-2.9); LYMPHOCYTES % (AUTO) 7.4 % (21.0-51.0); MEAN CORPUSCULAR HEMOGLOBIN 30.3 pg (27.0-34.0); MEAN CORPUSCULAR HGB CONC 33.7 g/dL (33.0-35.0); MEAN PLATELET VOLUME 7.5 fL (7.4-11.0); MONOCYTES # (AUTO) 1.1 x10^3/uL (0.3-0.8); MONOCYTES % (AUTO) 11.4 % (0.0-13.0); NEUTROPHILS # (AUTO) 7.7 x10^3/uL (2.2-4.8); NEUTROPHILS % (AUTO) 80.5 % (42.0-75.0); PLATELET COUNT 225 X10^3/uL (150.0-450.0); RED BLOOD COUNT 4.48 X10^6/uL (4.7-6.0); RED CELL DISTRIBUTION WIDTH 14.9 % (11.6-16.5); WHITE BLOOD COUNT 9.6 X10^3/uL (3.6-10.0)
[2023-01-10 05:10] LABS: INR 2.45 (0.8-1.3)
[2023-01-10 05:25] LABS: ALANINE AMINOTRANSFERASE 17 Units/L (12-78); ALKALINE PHOSPHATASE 139 Units/L (46-116); ASPARTATE AMINO TRANSFERASE 20 Units/L (15-37); BLOOD UREA NITROGEN 19 mg/dL (7-18); CALCIUM 8.6 mg/dL (8.5-10.1); CARBON DIOXIDE 40.4 mmol/L (21-32); CHLORIDE 98 mmol/L (98-107); COR CA(FOR HYPOALB) 9.4 mg/dL (8.5-10.1); COR NA(FOR HYPERGLY) 141 mmol/L (136-145); CREATININE 0.98 mg/dL (0.70-1.30); DIGOXIN 0.97 ng/mL (0.9-2); GLUCOSE 124 mg/dL (65-99); POTASSIUM 3.8 mmol/L (3.5-5.1); SODIUM 140 mmol/L (136-145); TOTAL PROTEIN 6.5 g/dL (6.4-8.2); eGFR NON BLACK RACES > 60 (>60)
[2023-01-10] MEDS: LEVAQUIN PREMIX IV 750 MG 750 MG/150 ML BAG IV SCH (08:11)
[2023-01-10] MEDS: LIPITOR TAB 10 MG PO SCH (08:13)
[2023-01-10] MEDS: LASIX IVP SCH ×2 (08:14→17:28)
[2023-01-10] MEDS: NAMENDA TAB 10 MG PO SCH ×2 (08:17→20:12)
[2023-01-10] MEDS: ARICEPT TAB 5 MG PO SCH ×2 (08:17→20:12)
[2023-01-10] MEDS: LANOXIN or DIGITEK PO SCH (08:17)
[2023-01-10] MEDS: FLOMAX PO SCH ×2 (08:18→20:11)
[2023-01-10] MEDS: MICRO K EXTEN CAP 10 MEQ PO SCH (08:18)
[2023-01-10] MEDS: FOLIC ACID TAB 1 MG PO SCH (08:18)
[2023-01-10] MEDS: COREG TAB 3.125 MG PO SCH ×2 (08:19→20:11)
[2023-01-10] MEDS: K-DUR TAB 20 MEQ PO PRN (08:19)
[2023-01-10] MEDS: ULTRAM PO PRN ×2 (08:19→20:11)
[2023-01-10] MEDS: PULMICORT NEB TX 0.5 MG NEB SCH ×2 (08:23→20:21)
[2023-01-10] MEDS: ROBITUSSIN DM PO SCH ×4 (08:38→20:12)
[2023-01-10] MEDS: FLONASE NASAL SPRAY ENOSTRIL SCH ×2 (08:38→20:12)
[2023-01-10] MEDS: PROTONIX INJ 40 MG VIAL IVP SCH ×2 (10:37→20:12)
[2023-01-10] MEDS: NEURONTIN CAP 300 MG PO SCH (20:11)
[2023-01-11] MEDS: XOPENEX 1.25 MG/3 ML NEBULE NEB SCH ×6 (00:07→16:59)
[2023-01-11 05:10] LABS: BASOPHILS % (AUTO) 0.3 % (0.2-1.0); EOSINOPHILS % (AUTO) 0.3 % (0.9-2.9); HEMATOCRIT 40.3 % (42.0-54.0); HEMOGLOBIN 13.7 g/dL (13.5-18.0); LYMPHOCYTES # (AUTO) 0.7 X10^3/uL (1.3-2.9); LYMPHOCYTES % (AUTO) 6.1 % (21.0-51.0); MEAN CORPUSCULAR HEMOGLOBIN 30.7 pg (27.0-34.0); MEAN CORPUSCULAR HGB CONC 34.1 g/dL (33.0-35.0); MEAN CORPUSCULAR VOLUME 90.1 fL (80.0-100.0); MEAN PLATELET VOLUME 7.3 fL (7.4-11.0); MONOCYTES # (AUTO) 1.2 x10^3/uL (0.3-0.8); MONOCYTES % (AUTO) 10.6 % (0.0-13.0); NEUTROPHILS # (AUTO) 9.1 x10^3/uL (2.2-4.8); NEUTROPHILS % (AUTO) 82.7 % (42.0-75.0); PLATELET COUNT 214 X10^3/uL (150.0-450.0); RED BLOOD COUNT 4.48 X10^6/uL (4.7-6.0); WHITE BLOOD COUNT 10.9 X10^3/uL (3.6-10.0)
[2023-01-11 05:31] LABS: ALANINE AMINOTRANSFERASE 13 Units/L (12-78); ALBUMIN 2.8 g/dL (3.4-5.0); ALKALINE PHOSPHATASE 134 Units/L (46-116); ASPARTATE AMINO TRANSFERASE 18 Units/L (15-37); BLOOD UREA NITROGEN 24 mg/dL (7-18); CALCIUM 8.6 mg/dL (8.5-10.1); CHLORIDE 95 mmol/L (98-107); COR CA(FOR HYPOALB) 9.6 mg/dL (8.5-10.1); COR NA(FOR HYPERGLY) 140 mmol/L (136-145); CREATININE 0.96 mg/dL (0.70-1.30); DIGOXIN 0.83 ng/mL (0.9-2); GLUCOSE 145 mg/dL (65-99); POTASSIUM 3.4 mmol/L (3.5-5.1); SODIUM 139 mmol/L (136-145); TOTAL PROTEIN 6.5 g/dL (6.4-8.2); eGFR NON BLACK RACES > 60 (>60)
[2023-01-11] MEDS: MICRO K EXTEN CAP 10 MEQ PO SCH (08:32)
[2023-01-11] MEDS: FOLIC ACID TAB 1 MG PO SCH (08:33)
[2023-01-11] MEDS: LIPITOR TAB 10 MG PO SCH (08:33)
[2023-01-11] MEDS: NAMENDA TAB 10 MG PO SCH ×2 (08:33→20:06)
[2023-01-11] MEDS: LANOXIN or DIGITEK PO SCH (08:33)
[2023-01-11] MEDS: FLOMAX PO SCH ×2 (08:33→20:04)
[2023-01-11] MEDS: ROBITUSSIN DM PO SCH ×4 (08:34→20:07)
[2023-01-11] MEDS: COREG TAB 3.125 MG PO SCH ×2 (08:34→20:06)
[2023-01-11] MEDS: PROTONIX INJ 40 MG VIAL IVP SCH ×2 (08:35→20:07)
[2023-01-11] MEDS: LEVAQUIN PREMIX IV 750 MG 750 MG/150 ML BAG IV SCH (08:35)
[2023-01-11] MEDS: LASIX IVP SCH ×2 (08:35→17:18)
--- NOTE | 2023-01-11 08:37 | RAD ---
HISTORYShortness of breathSTUDYChest AP [id number]/22/2023FINDINGSPati ent is status post median sternotomy and CABG. Heart is enlarged. No congestive heart failure is noted. Lungs are mildly hypoinflated but free of acute infiltrates. There is some subsegmental atelectasis in the lung bases bilaterally. No pleural effusions are identified. Bony thorax is unremarkable.IMPRESSIONMild cardiomegaly without congestive heart failureLungs hypoinflated but free of acute infiltratesElectronically signed by: ISABELLE CALVO (Jan 11, 2023 08:36:09)
[2023-01-11] MEDS: ARICEPT TAB 5 MG PO SCH ×2 (08:41→20:06)
[2023-01-11] MEDS: PULMICORT NEB TX 0.5 MG NEB SCH ×2 (08:43→20:36)
--- NOTE | 2023-01-11 08:53 | RAD ---
HISTORYShortness of breathSTUDYChest AP [id number]/23/2023FINDINGSPati ent is status post median sternotomy and CABG. The heart remains enlarged. Aorta is calcified. [place] are normal. No congestive heart failure is noted. Lungs are generally hypoinflated but clear. Bony thorax is intact.IMPRESSIONCardiomegaly without congestive heart failureLungs hypoinflated but free of acute infiltratesElectronically signed by: ISABELLE CALVO (Jan 11, 2023 08:52:35)
[2023-01-11 09:00] LABS: INR 2.66 (0.8-1.3)
[2023-01-11] MEDS: FLONASE NASAL SPRAY ENOSTRIL SCH ×2 (09:02→20:07)
--- NOTE | 2023-01-11 09:57 | PCM.PROG ---
Progress Note - Progress Note for Day of Date of Exam: 01/11/23 - Subjective Subjective: IS CURRENTLY INPATIENT STATUS FOR TREATMENT OF CHF EXACERBATION, ATRIAL FIBRILLATION, AND ACUTE BRONCHITIS. HE HAS A PMH OF DEMENTIA, GLAUCOMA, GERD, BPH, CAD, ATRIAL FIBRILLATION, CARDIAC STENTS, CABG, AND TONSILLECTOMY. HE REMAINS IN THE INTENSIVE CARE UNIT. HE CONTINUES TO COMPLAIN OF A PRODUCTIVE COUGH, SHORTNESS OF BREATH, AND WEAKNESS THIS MORNING. HE IS NO LONGER ON THE CARDIZEM DRIP. ON EXAMINATION, ATRIAL FIBRILLATION IS NOTED WITH HR 80-100 BPM. BILATERAL LUNGS ARE NOTED WITH RALES THROUGHOUT. ABDOMEN IS ROUND, SOFT, AND NON-TENDER WITH NORMAL BOWEL SOUNDS NOTED IN ALL QUADRANTS. GOOD MOVEMENT NOTED IN UPPER AND LOWER EXTREMITIES WITH TRACE LOWER EXTREMITY EDEMA NOTED. HIS VITALS THIS MORNING ARE: 98.0-98-23-95%-123/75. HE IS CURRENTLY UTILIZING OXYGEN VIA NASAL CANNULA AT 2 LPM. LABS WERE OBTAINED. WBC 10.9, RBC 4.48, HGB 13.7, HCT 40.3, PLT COUNT 214, INR 2.66, SODIUM 139, POTASSIUM 3.4, CHLORIDE 95, CARBON DIOXIDE 41.0, BUN 24, CREATININE 0.96, GLUCOSE 145, CALCIUM 8.6, TOTAL BILI 1.30, AST 18, ALT 13, ALK PHOS 134, BNP 162, TOTAL PROTEIN 6.5, ALBUMIN 2.8. BLOOD CULTURES ARE PENDING. AIT POSITIVE FOR PARAINFLUENZA VIRUS. AN ECHO WAS OBTAINED ON 01/06 AND REVEALED AN EJECTION FRACTION OF 37% AND SEVERE PULMONARY HYPERTENSION. HE IS CURRENTLY ON PROTONIX 40MG IV BID, COREG 6.25MG BID, DIGOXIN 0.125MG DAILY, FUROSEMIDE 40MG IV BID, LEVAQUIN 750MG IV DAILY, PULMICORT NEBS BID, XOPENEX NEBS Q6H, ROBITUSSIN DM 10ML QID, TUSSIONEX 5ML Q12H PRN, FLONASE 1 SPRAY BID, CLARITIN D 1 TAB Q12H, ULTRAM 50MG Q4H PRN, HALDOL 2-4MG IM Q4H PRN, AND THE POTASSIUM AND MAGNESIUM PROTOCOLS. HIS HOME MEDICATIONS OF GABAPENTIN, MEMANTINE, GABAPENTIN, DONEPEZIL, POTASSIUM CHLORIDE, FOLIC ACID, TAMSULOSIN, AND ATORVASTATIN WERE ALSO RESUMED. TODAY, WE WILL ADD CARDIZEM CD 60MG BID, MUCOMYST TO NEB TX Q6H, AND RESUME HIS COUMADIN AT 2.5MG HS. OTHERWISE, WE WILL CONTINUE WITH CURRENT PLAN OF CARE TODAY. WE WILL FOLLOW-UP WITH AM LABS AND CHEST XRAY AND CONTINUE TO MONITOR. TIME SPENT ON CLINICAL ASSESSMENT, REVIWING LABS AND IMAGING, DECISION MAKING, AND DOCUMENTATION GREATER THAN 45 MINUTES. - Past Medical Family Social History Past Med/Fam/Surg Hx: No changes since H&P Allergies: Allergies No Known Drug Allergies Allergy (Verified 01/05/23 14:13) - Review of Systems ROS: No change since H&P - Vital Signs and I&O's Vital Signs: Temperature 98.0 F Pulse Rate [Left Brachial] 95 Pulse Rate 105 Respiratory Rate 23 Blood Pressure [Left Thigh] 154/76 Blood Pressure [Right Arm] 118/87 Blood Pressure [Left Arm] 131/94 Blood Pressure 123/75 O2 Sat by Pulse Oximetry 95 Intake and Output: Intake & Output 01/08/23 01/09/23 01/10/23 01/11/23 11:59 11:59 11:59 11:59 Intake Total 1505 / 1505 1216 / 1216 1350 / 1350 949.5 / 949.5 Output Total 3100 / 3100 3700 / 3700 1850 / 1850 665 / 665 Balance -1595 / -1595 -2484 / -2484 -500 / -500 284.5 / 284.5 - Physical Exam Oriented: Normal Eyes: Normal Ear: Normal Nose: Normal Throat: Normal Respiratory: Generalized, Rales Cardiovascular: Irregular (A-FIB ), Edema (TRACE ) : Normal Auscultation: Bowel Sounds: Normal Palpation: Normal Tenderness: Normal Skin: Normal Musculoskeletal: Normal Psychiatric: Normal Mood Description: Calm Affect: Normal Speech Pattern: Clear, Appropriate - Laboratory and Diagnostics Result Diagrams: 01/11/23 04:06 01/11/23 04:06 Labs: 01/05/23 14:30 Blood Blood Culture - Preliminary 01/05/23 14:28 Blood Blood Culture - Preliminary 01/05/23 14:00 Sputum - Expectorated Sputum Sputum Culture - Final 01/05/23 14:00 Sputum - Expectorated Sputum - Final Laboratory WBC 10.9 X10^3/uL (3.6-10.0) H 01/11/23 04:06 RBC 4.48 X10^6/uL (4.7-6.0) L 01/11/23 04:06 Hgb 13.7 g/dL (13.5-18.0) 01/11/23 04:06 Hct 40.3 % (42.0-54.0) L 01/11/23 04:06 MCV 90.1 fL (80.0-100.0) 01/11/23 04:06 MCH 30.7 pg (27.0-34.0) 01/11/23 04:06 MCHC 34.1 g/dL (33.0-35.0) 01/11/23 04:06 RDW 15.0 % (11.6-16.5) 01/11/23 04:06 Plt Count 214 X10^3/uL (150.0-450.0) 01/11/23 04:06 MPV 7.3 fL (7.4-11.0) L 01/11/23 04:06 Neut % (Auto) 82.7 % (42.0-75.0) H 01/11/23 04:06 Lymph % (Auto) 6.1 % (21.0-51.0) L 01/11/23 04:06 [place] % (Auto) 10.6 % (0.0-13.0) 01/11/23 04:06 Eos % (Auto) 0.3 % (0.9-2.9) L 01/11/23 04:06 Baso % (Auto) 0.3 % (0.2-1.0) 01/11/23 04:06 Neut # (Auto) 9.1 x10^3/uL (2.2-4.8) H 01/11/23 04:06 Lymph # (Auto) 0.7 X10^3/uL (1.3-2.9) L 01/11/23 04:06 [place] # (Auto) 1.2 x10^3/uL (0.3-0.8) H 01/11/23 04:06 Eos # (Auto) 0.0 x10^3/uL (0.0-0.2) 01/11/23 04:06 Baso # (Auto) 0.0 X10^3/uL (0.0-0.1) 01/11/23 04:06 Absolute Nucleated RBC 0.0 /100WBC 01/11/23 04:06 PT 27.9 SECONDS (11.8-14.3) 01/11/23 04:06 INR Target Range - 01/11/23 04:06 INR 2.66 (0.8-1.3) H 01/11/23 04:06 Sodium 139 mmol/L (136-145) 01/11/23 04:06 Corrected Sodium 140 mmol/L (136-145) 01/11/23 04:06 Potassium 3.4 mmol/L (3.5-5.1) L 01/11/23 04:06 Chloride 95 mmol/L (98-107) L 01/11/23 04:06 Carbon Dioxide 41.0 mmol/L (21-32) H 01/11/23 04:06 BUN 24 mg/dL (7-18) H 01/11/23 04:06 Creatinine 0.96 mg/dL (0.70-1.30) 01/11/23 04:06 Est GFR (MDRD) Af Amer > 60 (>60) 01/11/23 04:06 Est GFR (MDRD) Non-Af > 60 (>60) 01/11/23 04:06 Glucose 145 mg/dL (65-99) H 01/11/23 04:06 Calcium 8.6 mg/dL (8.5-10.1) 01/11/23 04:06 Corrected Calcium 9.6 mg/dL (8.5-10.1) 01/11/23 04:06 Magnesium 2.1 mg/dL (2.0-2.9) 01/11/23 04:06 Total Bilirubin 1.30 mg/dL (0.2-1.0) H 01/11/23 04:06 AST 18 Units/L (15-37) 01/11/23 04:06 ALT 13 Units/L (12-78) 01/11/23 04:06 Alkaline Phosphatase 134 Units/L (46-116) H 01/11/23 04:06 B-Natriuretic Peptide 162 pg/mL (0-79) H 01/11/23 04:06 Total Protein 6.5 g/dL (6.4-8.2) 01/11/23 04:06 Albumin 2.8 g/dL (3.4-5.0) L 01/11/23 04:06 Globulin 3.7 g/dL (2.5-4.5) 01/11/23 04:06 Albumin/Globulin Ratio 0.8 Ratio (1.1-2.1) L 01/11/23 04:06 Specimen Type Catherized urine 01/05/23 19: Urine Color [place] (YELLOW) 01/05/23 19: Urine Appearance Clear (CLEAR) 01/05/23 19: Urine pH 5.0 (5.0 - 8.0) 01/05/23 19: Ur Specific [place] 1.030 (1.000-1.030) 01/05/23 19: Urine Protein 3+ (NEGATIVE) 01/05/23 19: Urine Glucose (UA) Negative (NEGATIVE) 01/05/23 19: Urine Ketones 2+ (NEGATIVE) 01/05/23 19: Urine Blood 5+ (NEGATIVE) 01/05/23 19: Urine Nitrite Negative (NEGATIVE) 01/05/23 19: Urine Bilirubin Negative (NEGATIVE) 01/05/23 19: Urine Urobilinogen 1+ (NORMAL) 01/05/23 19: Ur Leukocyte Esterase 1+ (NEGATIVE) 01/05/23 19: Urine RBC 30-50 /HPF (0-3) A 01/05/23 19: Urine WBC 0-2 /HPF (0-5) 01/05/23 19: Ur Squamous Epith Cells Rare /HPF (NEGATIVE) 01/05/23 19: Urine Bacteria Trace /HPF (NEGATIVE) 01/05/23 19: Hyaline Casts Few /LPF (NEGATIVE) 01/05/23 19: Urine Mucus Many /HPF (NEGATIVE) 01/05/23 19: Ur Culture Indicated? No/not indicated 01/05/23 19: Digoxin 0.83 ng/mL (0.9-2) L 01/11/23 04:06 Resp Viral Panel (PCR) See scanned report 01/05/23 14:00 - Plan (1) CHF (congestive heart failure) Status: Chronic Qualifiers: Heart failure type: unspecified Heart failure chronicity: acute on chronic Qualified Code(s): I50.9 - Heart failure, unspecified Plan: COREG 6.25 BID, CARDIZEM 60MG BID, DIGOXIN 0.125MG DAILY, COUMADIN 2.5MG HS, FUROSEMIDE 40MG IV BID, LEVAQUIN 750MG IV DAILY, PULMICORT NEBS BID, XOPENEX NEBS Q6H, MUCOMYST IN NEB [place] Q6H, ROBITUSSIN DM 10ML QID, TUSSIONEX 5ML Q12H PRN, FLONASE 1 SPRAY BID, CLARITIN D 1 TAB Q12H, ULTRAM 50MG Q4H PRN, HALDOL 2- 4MG IM Q4H PRN, AND THE POTASSIUM AND MAGNESIUM PROTOCOLS. RESUME HOME MEDS (2) Atrial fibrillation with RVR Status: Acute (3) Acute bronchitis Status: Acute Qualifiers: Bronchitis organism: parainfluenza virus Qualified Code(s): J20.4 - Acute bronchitis due to parainfluenza virus (4) Hypokalemia Status: Acute (5) Dementia Status: Chronic Qualifiers: Dementia type: unspecified type Dementia severity: moderate Dementia behavioral or psychological symptom: with agitation Qualified Code(s): F03.B11 - Unspecified dementia, moderate, with agitation (6) BPH (benign prostatic hyperplasia) Status: Chronic Qualifiers: Lower urinary tract symptom presence: unspecified whether lower urinary tract symptoms present Qualified Code(s): N40.0 - Benign prostatic hyperplasia without lower urinary tract symptoms (7) GERD (gastroesophageal reflux disease) Status: Chronic Qualifiers: Esophagitis presence: esophagitis presence not specified Qualified Code(s): K21.9 - Gastro-esophageal reflux disease without esophagitis (8) CAD (coronary artery disease) Status: Chronic Qualifiers: Coronary Disease-Associated Artery/Lesion type: bypass graft [place] vs. transplanted heart: [place] heart Associated angina: unspecified whether angina present Qualified Code(s): I25.810 - Atherosclerosis of coronary artery bypass graft(s) without angina pectoris
[2023-01-11] MEDS ORDERED: MUCOMYST (RESPIRATORY USE ONLY) NEB SCH (10:00)
[2023-01-11] MEDS: K-DUR TAB 20 MEQ PO PRN (10:02)
[2023-01-11] MEDS: CARDIZEM TAB 30 MG PLAIN PO SCH ×2 (10:02→20:04)
[2023-01-11] MEDS ORDERED: MUCOMYST (RESPIRATORY USE ONLY) ONE (16:27)
[2023-01-11] MEDS: MUCOMYST 20% 200 MG/ML NEB SCH ×2 (16:30→16:59)
[2023-01-11] MEDS: COUMADIN TAB 2.5 MG (JANTOVEN) PO SCH (20:05)
[2023-01-11] MEDS: ULTRAM PO PRN (20:06)
[2023-01-11] MEDS: NEURONTIN CAP 300 MG PO SCH (20:06)
[2023-01-11] MEDS: BUTT CREAM (COMPOUND) TOP PRN (20:52)
[2023-01-12] MEDS: XOPENEX 1.25 MG/3 ML NEBULE NEB SCH ×4 (00:10→17:08)
[2023-01-12] MEDS: MUCOMYST 20% 200 MG/ML NEB SCH ×4 (00:10→17:07)
[2023-01-12 05:07] LABS: BASOPHILS % (AUTO) 0.1 % (0.2-1.0); EOSINOPHILS % (AUTO) 0.1 % (0.9-2.9); HEMATOCRIT 41.9 % (42.0-54.0); HEMOGLOBIN 14.3 g/dL (13.5-18.0); LYMPHOCYTES # (AUTO) 0.7 X10^3/uL (1.3-2.9); LYMPHOCYTES % (AUTO) 6.1 % (21.0-51.0); MEAN CORPUSCULAR HEMOGLOBIN 31.1 pg (27.0-34.0); MEAN CORPUSCULAR HGB CONC 34.2 g/dL (33.0-35.0); MEAN CORPUSCULAR VOLUME 90.9 fL (80.0-100.0); MEAN PLATELET VOLUME 7.5 fL (7.4-11.0); MONOCYTES # (AUTO) 1.3 x10^3/uL (0.3-0.8); MONOCYTES % (AUTO) 11.6 % (0.0-13.0); NEUTROPHILS # (AUTO) 8.9 x10^3/uL (2.2-4.8); NEUTROPHILS % (AUTO) 82.1 % (42.0-75.0); PLATELET COUNT 210 X10^3/uL (150.0-450.0); RED BLOOD COUNT 4.61 X10^6/uL (4.7-6.0); RED CELL DISTRIBUTION WIDTH 14.5 % (11.6-16.5); WHITE BLOOD COUNT 10.9 X10^3/uL (3.6-10.0)
[2023-01-12 05:10] LABS: INR 3.04 (0.8-1.3)
[2023-01-12 05:21] LABS: ALANINE AMINOTRANSFERASE 15 Units/L (12-78); ALBUMIN 2.7 g/dL (3.4-5.0); ALKALINE PHOSPHATASE 127 Units/L (46-116); ASPARTATE AMINO TRANSFERASE 24 Units/L (15-37); BLOOD UREA NITROGEN 32 mg/dL (7-18); CALCIUM 8.8 mg/dL (8.5-10.1); CARBON DIOXIDE 40.3 mmol/L (21-32); CHLORIDE 97 mmol/L (98-107); COR CA(FOR HYPOALB) 9.8 mg/dL (8.5-10.1); COR NA(FOR HYPERGLY) 142 mmol/L (136-145); DIGOXIN 0.56 ng/mL (0.9-2); GLUCOSE 180 mg/dL (65-99); POTASSIUM 3.7 mmol/L (3.5-5.1); SODIUM 140 mmol/L (136-145); TOTAL PROTEIN 6.7 g/dL (6.4-8.2); eGFR NON BLACK RACES > 60 (>60)
--- NOTE | 2023-01-12 07:11 | RAD ---
HISTORYSOB, CHFSTUDYCHEST, 1 [id number]/24/2023.TECHNIQUEPA or AP view of the chestFINDINGSStatus post median sternotomy and CABG. The cardiac silhouette is stably enlarged. Mediastinal contours appear stable. There is blunting of the costophrenic sulci. No consolidation or segmental lung collapse. No pneumothorax.IMPRESSIONBlunted costophrenic sulci can be seen with small pleural effusions or pleuro-parynchemal scarring. Cardiomegaly.Electronically signed by: Rashad Mireles (Jan 12, 2023 07:09:57)
[2023-01-12] MEDS: ARICEPT TAB 5 MG PO SCH ×2 (08:10→20:36)
[2023-01-12] MEDS: FOLIC ACID TAB 1 MG PO SCH (08:10)
[2023-01-12] MEDS: CARDIZEM TAB 30 MG PLAIN PO SCH ×2 (08:10→20:34)
[2023-01-12] MEDS: NAMENDA TAB 10 MG PO SCH ×2 (08:10→20:38)
[2023-01-12] MEDS: LEVAQUIN PREMIX IV 750 MG 750 MG/150 ML BAG IV SCH (08:11)
[2023-01-12] MEDS: MICRO K EXTEN CAP 10 MEQ PO SCH (08:11)
[2023-01-12] MEDS: COREG TAB 3.125 MG PO SCH ×2 (08:11→20:36)
[2023-01-12] MEDS: LANOXIN or DIGITEK PO SCH (08:11)
[2023-01-12] MEDS: FLOMAX PO SCH ×2 (08:11→20:35)
[2023-01-12] MEDS: LIPITOR TAB 10 MG PO SCH (08:11)
[2023-01-12] MEDS: ROBITUSSIN DM PO SCH ×4 (08:12→20:39)
[2023-01-12] MEDS: PROTONIX INJ 40 MG VIAL IVP SCH ×2 (08:12→20:34)
[2023-01-12] MEDS: LASIX IVP SCH ×2 (08:13→17:14)
[2023-01-12] MEDS: FLONASE NASAL SPRAY ENOSTRIL SCH ×2 (08:25→21:02)
[2023-01-12] MEDS: PULMICORT NEB TX 0.5 MG NEB SCH ×2 (08:53→20:45)
[2023-01-12 13:29] VITALS: BMI 28.5
[2023-01-12] MEDS: NEURONTIN CAP 300 MG PO SCH (20:38)
[2023-01-12] MEDS: COUMADIN TAB 2.5 MG (JANTOVEN) PO SCH (20:47)
[2023-01-13] MEDS: XOPENEX 1.25 MG/3 ML NEBULE NEB SCH ×4 (00:15→17:18)
[2023-01-13] MEDS: MUCOMYST 20% 200 MG/ML NEB SCH ×4 (00:15→17:17)
[2023-01-13 05:07] LABS: BASOPHILS % (AUTO) 0.2 % (0.2-1.0); EOSINOPHILS % (AUTO) 0.1 % (0.9-2.9); HEMATOCRIT 41.4 % (42.0-54.0); HEMOGLOBIN 14.1 g/dL (13.5-18.0); LYMPHOCYTES # (AUTO) 0.8 X10^3/uL (1.3-2.9); LYMPHOCYTES % (AUTO) 8.6 % (21.0-51.0); MEAN CORPUSCULAR HEMOGLOBIN 30.7 pg (27.0-34.0); MEAN CORPUSCULAR VOLUME 90.3 fL (80.0-100.0); MEAN PLATELET VOLUME 7.4 fL (7.4-11.0); MONOCYTES # (AUTO) 1.2 x10^3/uL (0.3-0.8); MONOCYTES % (AUTO) 13.1 % (0.0-13.0); NEUTROPHILS # (AUTO) 7.3 x10^3/uL (2.2-4.8); PLATELET COUNT 229 X10^3/uL (150.0-450.0); RED BLOOD COUNT 4.59 X10^6/uL (4.7-6.0); RED CELL DISTRIBUTION WIDTH 14.6 % (11.6-16.5); WHITE BLOOD COUNT 9.4 X10^3/uL (3.6-10.0)
[2023-01-13 05:08] LABS: INR 3.43 (0.8-1.3)
[2023-01-13 05:21] LABS: ALANINE AMINOTRANSFERASE 13 Units/L (12-78); ALBUMIN 2.7 g/dL (3.4-5.0); ALKALINE PHOSPHATASE 119 Units/L (46-116); ASPARTATE AMINO TRANSFERASE 18 Units/L (15-37); BLOOD UREA NITROGEN 43 mg/dL (7-18); CALCIUM 8.5 mg/dL (8.5-10.1); CARBON DIOXIDE 41.8 mmol/L (21-32); CHLORIDE 100 mmol/L (98-107); COR CA(FOR HYPOALB) 9.5 mg/dL (8.5-10.1); COR NA(FOR HYPERGLY) 144 mmol/L (136-145); CREATININE 1.09 mg/dL (0.70-1.30); DIGOXIN 0.69 ng/mL (0.9-2); GLUCOSE 160 mg/dL (65-99); POTASSIUM 3.3 mmol/L (3.5-5.1); SODIUM 143 mmol/L (136-145); TOTAL PROTEIN 6.8 g/dL (6.4-8.2); eGFR NON BLACK RACES > 60 (>60)
[2023-01-13] MEDS: FOLIC ACID TAB 1 MG PO SCH (08:04)
[2023-01-13] MEDS: CARDIZEM TAB 30 MG PLAIN PO SCH ×2 (08:04→20:15)
[2023-01-13] MEDS: FLOMAX PO SCH ×2 (08:04→20:18)
[2023-01-13] MEDS: LIPITOR TAB 10 MG PO SCH (08:04)
[2023-01-13] MEDS: ARICEPT TAB 5 MG PO SCH ×2 (08:06→20:17)
[2023-01-13] MEDS: K-DUR TAB 20 MEQ PO PRN (08:06)
[2023-01-13] MEDS: NAMENDA TAB 10 MG PO SCH ×2 (08:07→20:16)
[2023-01-13] MEDS: MICRO K EXTEN CAP 10 MEQ PO SCH (08:07)
[2023-01-13] MEDS: LASIX IVP SCH ×2 (08:07→16:18)
[2023-01-13] MEDS: COREG TAB 3.125 MG PO SCH ×2 (08:07→20:17)
[2023-01-13] MEDS: LEVAQUIN PREMIX IV 750 MG 750 MG/150 ML BAG IV SCH (08:08)
[2023-01-13] MEDS: ROBITUSSIN DM PO SCH ×4 (08:08→20:18)
[2023-01-13] MEDS: PROTONIX INJ 40 MG VIAL IVP SCH ×2 (08:08→20:15)
[2023-01-13] MEDS: LANOXIN or DIGITEK PO SCH (08:10)
[2023-01-13] MEDS: PULMICORT NEB TX 0.5 MG NEB SCH ×2 (08:37→21:00)
[2023-01-13] MEDS: FLONASE NASAL SPRAY ENOSTRIL SCH ×2 (09:03→21:05)
--- NOTE | 2023-01-13 09:24 | RAD ---
HISTORYShortness of breathSTUDYChest AP [id number]/25/2023FINDINGSPati ent is status post median sternotomy and CABG. Hypo inflation accentuates the heart size. It is still likely enlarged. No congestive heart failure or infiltrates identified. No pleural effusions are identified. Bony thorax is unremarkable.IMPRESSIONCardiomegaly without congestive heart failureLungs hypoinflated but free of acute infiltratesElectronically signed by: ISABELLE CALVO (Jan 13, 2023 08:48:24)
[2023-01-13] MEDS: MEGACE PO SCH ×2 (09:56→20:16)
[2023-01-13] MEDS: ALBUMIN HUMAN 25%- 100 ML 100 ML IV SCH (09:57)
[2023-01-13] MEDS ORDERED: DRUG FILTER EXTENSION SET ONE (10:14)
--- NOTE | 2023-01-13 10:19 | PCM.PROG ---
Progress Note - Progress Note for Day of Date of Exam: 01/12/23 - Subjective Subjective: IS CURRENTLY INPATIENT STATUS FOR TREATMENT OF CHF EXACERBATION, ATRIAL FIBRILLATION, AND ACUTE BRONCHITIS. HE HAS A PMH OF DEMENTIA, GLAUCOMA, GERD, BPH, CAD, ATRIAL FIBRILLATION, CARDIAC STENTS, CABG, AND TONSILLECTOMY. HE REMAINS IN THE INTENSIVE CARE UNIT. HE CONTINUES TO COMPLAIN OF A PRODUCTIVE COUGH, SHORTNESS OF BREATH AT TIMES, AND GENERALIZED WEAKNESS. HE COMPLAINS OF A DECREASED APPETITE AND HAS HAD POOR ORAL INTAKE THE PAST FEW DAYS. HE IS NO LONGER ON THE CARDIZEM DRIP. ON EXAMINATION, HEART IS REGULAR IN RATE AND RHYTHM. BILATERAL LUNGS ARE NOTED WITH DIMINISHED LUNG SOUNDS THROUGHOUT. ABDOMEN IS ROUND, SOFT, AND NON-TENDER WITH NORMAL BOWEL SOUNDS NOTED IN ALL QUADRANTS. GOOD MOVEMENT NOTED IN UPPER AND LOWER EXTREMITIES WITH TRACE LOWER EXTREMITY EDEMA NOTED. HIS VITALS THIS MORNING ARE: 97.5-91-20-96%-127/79. HE IS CURRENTLY UTILIZING OXYGEN VIA NASAL CANNULA AT 2 LPM. LABS WERE OBTAINED. WBC 10.9, RBC 4.61, HGB 14.3, HCT 41.9, PLT COUNT 210, INR 3.04, SODIUM 140, POTASSIUM 3.7, CHLORIDE 97, CARBON DIOXIDE 40.3, BUN 32, CREATININE 1.00, GLUCOSE 180, CALCIUM 8.8, TOTAL BILI 1.30, AST 24, ALT 15, ALK PHOS 127, BNP 192, TOTAL PROTEIN 6.7, ALBUMIN 2.7. BLOOD CULTURES ARE PENDING. AIT POSITIVE FOR PARAINFLUENZA VIRUS. A CHEST XRAY WAS OBTAINED AND REVEALED: Blunted costophrenic sulci can be seen with small pleural effusions or pleuro- parynchemal scarring. Cardiomegaly. HE IS CURRENTLY RECEIVING PROTONIX 40MG IV BID, COREG 6.25MG BID, CARDIZEM CD 60MG BID, COUMADIN 2.5MG HS, DIGOXIN 0.125MG DAILY, FUROSEMIDE 40MG IV BID, LEVAQUIN 750MG IV DAILY, PULMICORT NEBS BID, XOPENEX NEBS Q6H, MUCOMYST IN NEBS Q6H, ROBITUSSIN DM 10ML QID, TUSSIONEX 5ML Q12H PRN, FLONASE 1 SPRAY BID, CLARITIN D 1 TAB Q12H, ULTRAM 50MG Q4H PRN, HALDOL 2-4MG IM Q4H PRN, AND THE POTASSIUM AND MAGNESIUM PROTOCOLS. HIS HOME MEDICATIONS OF GABAPENTIN, MEMANTINE, GABAPENTIN, DONEPEZIL, POTASSIUM CHLORIDE, FOLIC ACID, TAMSULOSIN, AND ATORVASTATIN WERE ALSO RESUMED. WE WILL HAVE PHYSICAL THERAPY WORK WITH HIM TODAY. OTHERWISE, WE WILL CONTINUE WITH CURRENT PLAN OF CARE. WE WILL FOLLOW-UP WITH AM LABS AND CHEST XRAY AND CONTINUE TO MONITOR. TIME SPENT ON CLINICAL ASSESSMENT, REVIWING LABS AND IMAGING, DECISION MAKING, AND DOCUMENTATION GREATER THAN 45 MINUTES. - Past Medical Family Social History Past Med/Fam/Surg Hx: No changes since H&P Allergies: Allergies No Known Drug Allergies Allergy (Verified 01/05/23 14:13) - Review of Systems ROS: No change since H&P - Vital Signs and I&O's Vital Signs: Temperature 97.4 F Pulse Rate [Left Brachial] 95 Pulse Rate 94 Respiratory Rate 30 Blood Pressure [Left Thigh] 154/76 Blood Pressure [Right Arm] 118/87 Blood Pressure [Left Arm] 131/94 Blood Pressure 150/70 O2 Sat by Pulse Oximetry 97 Intake and Output: Intake & Output 01/10/23 01/11/23 01/12/23 01/13/23 11:59 11:59 11:59 11:59 Intake Total 1350 / 1350 949.5 / 949.5 820 / 820 668 / 668 Output Total 1850 / 1850 665 / 665 885 / 885 1075 / 1075 Balance -500 / -500 284.5 / 284.5 -65 / -65 -407 / -407 - Physical Exam Oriented: Normal Eyes: Normal Ear: Normal Nose: Normal Throat: Normal Respiratory: Generalized, Rales Cardiovascular: Irregular (A-FIB ), Edema (TRACE ) : Normal Auscultation: Bowel Sounds: Normal Palpation: Normal Tenderness: Normal Skin: Normal Musculoskeletal: Normal Psychiatric: Normal Mood Description: Calm Affect: Normal Speech Pattern: Clear - Laboratory and Diagnostics Result Diagrams: 01/13/23 04:01 01/13/23 04:01 Labs: 01/05/23 14:30 Blood Blood Culture - Final 01/05/23 14:28 Blood Blood Culture - Final 01/05/23 14:00 Sputum - Expectorated Sputum Sputum Culture - Final 01/05/23 14:00 Sputum - Expectorated Sputum - Final Laboratory WBC 9.4 X10^3/uL (3.6-10.0) 01/13/23 04:01 RBC 4.59 X10^6/uL (4.7-6.0) L 01/13/23 04:01 Hgb 14.1 g/dL (13.5-18.0) 01/13/23 04:01 Hct 41.4 % (42.0-54.0) L 01/13/23 04:01 MCV 90.3 fL (80.0-100.0) 01/13/23 04:01 MCH 30.7 pg (27.0-34.0) 01/13/23 04:01 MCHC 34.0 g/dL (33.0-35.0) 01/13/23 04:01 RDW 14.6 % (11.6-16.5) 01/13/23 04:01 Plt Count 229 X10^3/uL (150.0-450.0) 01/13/23 04:01 MPV 7.4 fL (7.4-11.0) 01/13/23 04:01 Neut % (Auto) 78.0 % (42.0-75.0) H 01/13/23 04:01 Lymph % (Auto) 8.6 % (21.0-51.0) L 01/13/23 04:01 [place] % (Auto) 13.1 % (0.0-13.0) H 01/13/23 04:01 Eos % (Auto) 0.1 % (0.9-2.9) L 01/13/23 04:01 Baso % (Auto) 0.2 % (0.2-1.0) 01/13/23 04:01 Neut # (Auto) 7.3 x10^3/uL (2.2-4.8) H 01/13/23 04:01 Lymph # (Auto) 0.8 X10^3/uL (1.3-2.9) L 01/13/23 04:01 [place] # (Auto) 1.2 x10^3/uL (0.3-0.8) H 01/13/23 04:01 Eos # (Auto) 0.0 x10^3/uL (0.0-0.2) 01/13/23 04:01 Baso # (Auto) 0.0 X10^3/uL (0.0-0.1) 01/13/23 04:01 Absolute Nucleated RBC 0.1 /100WBC 01/13/23 04:01 PT 34.0 SECONDS (11.8-14.3) 01/13/23 04:01 INR Target Range - 01/13/23 04:01 INR 3.43 (0.8-1.3) H 01/13/23 04:01 Sodium 143 mmol/L (136-145) 01/13/23 04:01 Corrected Sodium 144 mmol/L (136-145) 01/13/23 04:01 Potassium 3.3 mmol/L (3.5-5.1) L 01/13/23 04:01 Chloride 100 mmol/L (98-107) 01/13/23 04:01 Carbon Dioxide 41.8 mmol/L (21-32) H 01/13/23 04:01 BUN 43 mg/dL (7-18) H 01/13/23 04:01 Creatinine 1.09 mg/dL (0.70-1.30) 01/13/23 04:01 Est GFR (MDRD) Af Amer > 60 (>60) 01/13/23 04:01 Est GFR (MDRD) Non-Af > 60 (>60) 01/13/23 04:01 Glucose 160 mg/dL (65-99) H 01/13/23 04:01 Calcium 8.5 mg/dL (8.5-10.1) 01/13/23 04:01 Corrected Calcium 9.5 mg/dL (8.5-10.1) 01/13/23 04:01 Magnesium 2.2 mg/dL (2.0-2.9) 01/13/23 04:01 Total Bilirubin 1.10 mg/dL (0.2-1.0) H 01/13/23 04:01 AST 18 Units/L (15-37) 01/13/23 04:01 ALT 13 Units/L (12-78) 01/13/23 04:01 Alkaline Phosphatase 119 Units/L (46-116) H 01/13/23 04:01 B-Natriuretic Peptide 117 pg/mL (0-79) H 01/13/23 04:01 Total Protein 6.8 g/dL (6.4-8.2) 01/13/23 04:01 Albumin 2.7 g/dL (3.4-5.0) L 01/13/23 04:01 Globulin 4.1 g/dL (2.5-4.5) 01/13/23 04:01 Albumin/Globulin Ratio 0.7 Ratio (1.1-2.1) L 01/13/23 04:01 Specimen Type Catherized urine 01/05/23 19: Urine Color [place] (YELLOW) 01/05/23 19: Urine Appearance Clear (CLEAR) 01/05/23 19: Urine pH 5.0 (5.0 - 8.0) 01/05/23 19: Ur Specific [place] 1.030 (1.000-1.030) 01/05/23 19: Urine Protein 3+ (NEGATIVE) 01/05/23 19: Urine Glucose (UA) Negative (NEGATIVE) 01/05/23: Urine Ketones 2+ (NEGATIVE) 01/05/23 19: Urine Blood 5+ (NEGATIVE) 01/05/23 19: Urine Nitrite Negative (NEGATIVE) 01/05/23 19: Urine Bilirubin Negative (NEGATIVE) 01/05/23 19: Urine Urobilinogen 1+ (NORMAL) 01/05/23 19: Ur Leukocyte Esterase 1+ (NEGATIVE) 01/05/23 19:27 Urine RBC 30-50 /HPF (0-3) A 01/05/23 19: Urine WBC 0-2 /HPF (0-5) 01/05/23 19: Ur Squamous Epith Cells Rare /HPF (NEGATIVE) 01/05/23 19: Urine Bacteria Trace /HPF (NEGATIVE) 01/05/23 19: Hyaline Casts Few /LPF (NEGATIVE) 01/05/23 19: Urine Mucus Many /HPF (NEGATIVE) 01/05/23 19: Ur Culture Indicated? No/not indicated 01/05/23 19: Digoxin 0.69 ng/mL (0.9-2) L 01/13/23 04:01 Resp Viral Panel (PCR) See scanned report 01/05/23 14:00 - Plan (1) CHF (congestive heart failure) Status: Chronic Qualifiers: Heart failure type: unspecified Heart failure chronicity: acute on chronic Qualified Code(s): I50.9 - Heart failure, unspecified Plan: COREG 6.25 BID, CARDIZEM 60MG BID, DIGOXIN 0.125MG DAILY, COUMADIN 2.5MG HS, FUROSEMIDE 40MG IV BID, LEVAQUIN 750MG IV DAILY, PULMICORT NEBS BID, XOPENEX NEBS Q6H, MUCOMYST IN NEB [place] Q6H, ROBITUSSIN DM 10ML QID, TUSSIONEX 5ML Q12H PRN, FLONASE 1 SPRAY BID, CLARITIN D 1 TAB Q12H, ULTRAM 50MG Q4H PRN, HALDOL 2- 4MG IM Q4H PRN, AND THE POTASSIUM AND MAGNESIUM PROTOCOLS. RESUME HOME MEDS (2) Atrial fibrillation with RVR Status: Acute (3) Acute bronchitis Status: Acute Qualifiers: Bronchitis organism: parainfluenza virus Qualified Code(s): J20.4 - Acute bronchitis due to parainfluenza virus (4) Hypokalemia Status: Acute (5) Dementia Status: Chronic Qualifiers: Dementia type: unspecified type Dementia severity: moderate Dementia behavioral or psychological symptom: with agitation Qualified Code(s): F03.B11 - Unspecified dementia, moderate, with agitation (6) BPH (benign prostatic hyperplasia) Status: Chronic Qualifiers: Lower urinary tract symptom presence: unspecified whether lower urinary tract symptoms present Qualified Code(s): N40.0 - Benign prostatic hyperplasia witho ut lower urinary tract symptoms (7) GERD (gastroesophageal reflux disease) Status: Chronic Qualifiers: Esophagitis presence: esophagitis presence not specified Qualified Code(s): K21.9 - Gastro-esophageal reflux disease without esophagitis (8) CAD (coronary artery disease) Status: Chronic Qualifiers: Coronary Disease-Associated Artery/Lesion type: bypass graft [place] vs. transplanted heart: [place] heart Associated angina: unspecified whether angina present Qualified Code(s): I25.810 - Atherosclerosis of coronary artery bypass graft(s) without angina pectoris
[2023-01-13] MEDS: MVI IV SCH ×3 (10:21)
[2023-01-13] MEDS: TPN ELECTROLYTES IV SCH ×3 (10:21)
[2023-01-13] MEDS: CLINIMIX IV SCH ×3 (10:21)
[2023-01-13] MEDS: NEURONTIN CAP 300 MG PO SCH (20:17)
[2023-01-14] MEDS: XOPENEX 1.25 MG/3 ML NEBULE NEB SCH ×5 (00:10→18:27)
[2023-01-14] MEDS: MUCOMYST 20% 200 MG/ML NEB SCH ×5 (00:10→18:27)
[2023-01-14 05:00] LABS: BASOPHILS % (AUTO) 0.2 % (0.2-1.0); EOSINOPHILS % (AUTO) 0.5 % (0.9-2.9); HEMATOCRIT 39.4 % (42.0-54.0); HEMOGLOBIN 13.3 g/dL (13.5-18.0); LYMPHOCYTES # (AUTO) 0.8 X10^3/uL (1.3-2.9); LYMPHOCYTES % (AUTO) 8.8 % (21.0-51.0); MEAN CORPUSCULAR HEMOGLOBIN 30.3 pg (27.0-34.0); MEAN CORPUSCULAR HGB CONC 33.7 g/dL (33.0-35.0); MEAN CORPUSCULAR VOLUME 90.1 fL (80.0-100.0); MEAN PLATELET VOLUME 7.3 fL (7.4-11.0); MONOCYTES # (AUTO) 1.2 x10^3/uL (0.3-0.8); MONOCYTES % (AUTO) 13.5 % (0.0-13.0); NEUTROPHILS # (AUTO) 6.9 x10^3/uL (2.2-4.8); PLATELET COUNT 215 X10^3/uL (150.0-450.0); RED BLOOD COUNT 4.38 X10^6/uL (4.7-6.0); RED CELL DISTRIBUTION WIDTH 14.9 % (11.6-16.5)
[2023-01-14 05:13] LABS: ALANINE AMINOTRANSFERASE 13 Units/L (12-78); ALBUMIN 3.1 g/dL (3.4-5.0); ALKALINE PHOSPHATASE 104 Units/L (46-116); ASPARTATE AMINO TRANSFERASE 18 Units/L (15-37); BLOOD UREA NITROGEN 49 mg/dL (7-18); CARBON DIOXIDE 42.3 mmol/L (21-32); CHLORIDE 103 mmol/L (98-107); COR CA(FOR HYPOALB) 9.7 mg/dL (8.5-10.1); COR NA(FOR HYPERGLY) 146 mmol/L (136-145); DIGOXIN 0.81 ng/mL (0.9-2); GLUCOSE 158 mg/dL (65-99); POTASSIUM 3.6 mmol/L (3.5-5.1); SODIUM 145 mmol/L (136-145); TOTAL PROTEIN 6.7 g/dL (6.4-8.2); eGFR NON BLACK RACES > 60 (>60)
--- NOTE | 2023-01-14 08:01 | RAD ---
HISTORYShortness of breathSTUDYChest AP [id number]/2023FINDINGSPati ent is status post median sternotomy and CABG. Heart is mildly enlarged. No congestive heart failure is noted. No acute alveolar infiltrates or pleural effusions are identified. Bony thorax is unremarkable.IMPRESSIONCardiomegaly without congestive heart failureLungs clearElectronically signed by: ISABELLE CALVO (Jan 14, 2023 08:00:47)
[2023-01-14] MEDS: ALBUMIN HUMAN 25%- 100 ML 100 ML IV SCH (08:24)
[2023-01-14] MEDS: PULMICORT NEB TX 0.5 MG NEB SCH ×2 (08:25→20:21)
[2023-01-14] MEDS: PROTONIX INJ 40 MG VIAL IVP SCH ×2 (08:28→20:32)
[2023-01-14] MEDS: ROBITUSSIN DM PO SCH ×4 (08:28→20:38)
[2023-01-14] MEDS: LASIX IVP SCH ×2 (08:28→16:00)
[2023-01-14] MEDS: LEVAQUIN PREMIX IV 750 MG 750 MG/150 ML BAG IV SCH (08:28)
[2023-01-14] MEDS: CARDIZEM TAB 30 MG PLAIN PO SCH ×2 (08:31→20:32)
[2023-01-14] MEDS: MICRO K EXTEN CAP 10 MEQ PO PRN (08:32)
[2023-01-14] MEDS: FOLIC ACID TAB 1 MG PO SCH (08:32)
[2023-01-14] MEDS: LANOXIN or DIGITEK PO SCH (08:32)
[2023-01-14] MEDS: ARICEPT TAB 5 MG PO SCH ×2 (08:32→20:31)
[2023-01-14] MEDS: FLOMAX PO SCH ×2 (08:32→20:36)
[2023-01-14] MEDS: MICRO K EXTEN CAP 10 MEQ PO SCH (08:32)
[2023-01-14] MEDS: LIPITOR TAB 10 MG PO SCH (08:33)
[2023-01-14] MEDS: MEGACE PO SCH ×2 (08:33→20:32)
[2023-01-14] MEDS: COREG TAB 3.125 MG PO SCH ×2 (08:33→20:33)
[2023-01-14] MEDS: NAMENDA TAB 10 MG PO SCH ×2 (08:33→20:35)
[2023-01-14] MEDS: FLONASE NASAL SPRAY ENOSTRIL SCH ×3 (08:34→20:38)
[2023-01-14] MEDS: MVI IV SCH ×3 (11:00)
[2023-01-14] MEDS: TPN ELECTROLYTES IV SCH ×3 (11:00)
[2023-01-14] MEDS: CLINIMIX IV SCH ×3 (11:00)
--- NOTE | 2023-01-14 12:01 | PCM.PROG ---
Progress Note - Progress Note for Day of Date of Exam: 01/13/23 - Subjective Subjective: IS CURRENTLY INPATIENT STATUS FOR TREATMENT OF CHF EXACERBATION, ATRIAL FIBRILLATION, AND ACUTE BRONCHITIS. HE HAS A PMH OF DEMENTIA, GLAUCOMA, GERD, BPH, CAD, ATRIAL FIBRILLATION, CARDIAC STENTS, CABG, AND TONSILLECTOMY. HE REMAINS IN THE INTENSIVE CARE UNIT. HE CONTINUES TO COMPLAIN OF A PRODUCTIVE COUGH, SHORTNESS OF BREATH AT TIMES, AND GENERALIZED WEAKNESS. HE COMPLAINS OF A DECREASED APPETITE AND HAS HAD POOR ORAL INTAKE THE PAST FEW DAYS. HE IS NO LONGER ON THE CARDIZEM DRIP. ON EXAMINATION, HEART IS REGULAR IN RATE AND RHYTHM. BILATERAL LUNGS ARE NOTED WITH DIMINISHED LUNG SOUNDS THROUGHOUT. ABDOMEN IS ROUND, SOFT, AND NON-TENDER WITH NORMAL BOWEL SOUNDS NOTED IN ALL QUADRANTS. GOOD MOVEMENT NOTED IN UPPER AND LOWER EXTREMITIES WITH TRACE LOWER EXTREMITY EDEMA NOTED. HIS VITALS THIS MORNING ARE: 97.4-83-18-98%-112/59. HE IS CURRENTLY UTILIZING OXYGEN VIA NASAL CANNULA AT 2 LPM. LABS WERE OBTAINED. WBC 10.9, RBC 4.61, HGB 14.3, HCT 41.9, PLT COUNT 210, INR 3.04, SODIUM 140, POTASSIUM 3.7, CHLORIDE 97, CARBON DIOXIDE 40.3, BUN 32, CREATININE 1.00, GLUCOSE 180, CALCIUM 8.8, TOTAL BILI 1.30, AST 24, ALT 15, ALK PHOS 127, BNP 192, TOTAL PROTEIN 6.7, ALBUMIN 2.7. BLOOD CULTURES ARE PENDING. AIT POSITIVE FOR PARAINFLUENZA VIRUS. A CHEST XRAY WAS OBTAINED AND REVEALED: Cardiomegaly without congestive heart failure. Lungs hypoinflated but free of acute infiltrates. Cardiomegaly. HE IS CURRENTLY RECEIVING PROTONIX 40MG IV BID, COREG 6.25MG BID, CARDIZEM CD 60MG BID, COUMADIN 2.5MG HS, DIGOXIN 0.125MG DAILY, FUROSEMIDE 40MG IV BID, LEVAQUIN 750MG IV DAILY, PULMICORT NEBS BID, XOPENEX NEBS Q6H, MUCOMYST IN NEBS Q6H, ROBITUSSIN DM 10ML QID, TUSSIONEX 5ML Q12H PRN, FLONASE 1 SPRAY BID, CLARITIN D 1 TAB Q12H, ULTRAM 50MG Q4H PRN, HALDOL 2-4MG IM Q4H PRN, AND THE POTASSIUM AND MAGNESIUM PROTOCOLS. HIS HOME MEDICATIONS OF GABAPENTIN, MEMANTINE, GABAPENTIN, DONEPEZIL, POTASSIUM CHLORIDE, FOLIC ACID, TAMSULOSIN, AND ATORVASTATIN WERE ALSO RESUMED. TODAY, WE WILL ADD MEGACE 40MG BID, ALBUMIN 25% IV DAILY, AND TPN. OTHERWISE, WE WILL CONTINUE WITH CURRENT PLAN OF CARE. WE WILL FOLLOW-UP WITH AM LABS AND CHEST XRAY AND CONTINUE TO MONITOR. TIME SPENT ON CLINICAL ASSESSMENT, REVIWING LABS AND IMAGING, DECISION MAKING, AND DOCUMENTATION GREATER THAN 45 MINUTES. - Past Medical Family Social History Past Med/Fam/Surg Hx: No changes since H&P Allergies: Allergies No Known Drug Allergies Allergy (Verified 01/05/23 14:13) - Review of Systems ROS: No change since H&P - Vital Signs and I&O's Vital Signs: Temperature 98.2 F Pulse Rate [Left Brachial] 95 Pulse Rate 76 Respiratory Rate 37 Blood Pressure [Left Thigh] 154/76 Blood Pressure [Right Arm] 118/87 Blood Pressure [Left Arm] 131/94 Blood Pressure 148/91 O2 Sat by Pulse Oximetry 94 Intake and Output: Intake & Output 01/11/23 01/12/23 01/13/23 01/14/23 11:59 11:59 11:59 11:59 Intake Total 949.5 / 949.5 820 / 820 668 / 668 1155 / 1155 Output Total 665 / 665 885 / 885 1075 / 1075 700 / 700 Balance 284.5 / 284.5 -65 / -65 -407 / -407 455 / 455 - Physical Exam Oriented: Normal Eyes: Normal Ear: Normal Nose: Normal Throat: Normal Respiratory: Generalized, Rales Cardiovascular: Irregular (A-FIB ), Edema (TRACE ) : Normal Auscultation: Bowel Sounds: Normal Palpation: Normal Tenderness: Normal Skin: Normal Musculoskeletal: Normal Psychiatric: Normal Mood Description: Calm Affect: Normal Speech Pattern: Clear, Appropriate - Laboratory and Diagnostics Result Diagrams: 01/14/23 04:03 01/14/23 04:03 Labs: 01/05/23 14:30 Blood Blood Culture - Final 01/05/23 14:28 Blood Blood Culture - Final 01/05/23 14:00 Sputum - Expectorated Sputum Sputum Culture - Final 01/05/23 14:00 Sputum - Expectorated Sputum - Final Laboratory WBC 9.0 X10^3/uL (3.6-10.0) 01/14/23 04:03 RBC 4.38 X10^6/uL (4.7-6.0) L 01/14/23 04:03 Hgb 13.3 g/dL (13.5-18.0) L 01/14/23 04:03 Hct 39.4 % (42.0-54.0) L 01/14/23 04:03 MCV 90.1 fL (80.0-100.0) 01/14/23 04:03 MCH 30.3 pg (27.0-34.0) 01/14/23 04:03 MCHC 33.7 g/dL (33.0-35.0) 01/14/23 04:03 RDW 14.9 % (11.6-16.5) 01/14/23 04:03 Plt Count 215 X10^3/uL (150.0-450.0) 01/14/23 04:03 MPV 7.3 fL (7.4-11.0) L 01/14/23 04:03 Neut % (Auto) 77.0 % (42.0-75.0) H 01/14/23 04:03 Lymph % (Auto) 8.8 % (21.0-51.0) L 01/14/23 04:03 [place] % (Auto) 13.5 % (0.0-13.0) H 01/14/23 04:03 Eos % (Auto) 0.5 % (0.9-2.9) L 01/14/23 04:03 Baso % (Auto) 0.2 % (0.2-1.0) 01/14/23 04:03 Neut # (Auto) 6.9 x10^3/uL (2.2-4.8) H 01/14/23 04:03 Lymph # (Auto) 0.8 X10^3/uL (1.3-2.9) L 01/14/23 04:03 [place] # (Auto) 1.2 x10^3/uL (0.3-0.8) H 01/14/23 04:03 Eos # (Auto) 0.0 x10^3/uL (0.0-0.2) 01/14/23 04:03 Baso # (Auto) 0.0 X10^3/uL (0.0-0.1) 01/14/23 04:03 Absolute Nucleated RBC 0.0 /100WBC 01/14/23 04:03 PT 20.6 SECONDS (11.8-14.3) 01/14/23 04:03 INR Target Range - 01/14/23 04:03 INR 1.80 (0.8-1.3) H 01/14/23 04:03 Sodium 145 mmol/L (136-145) 01/14/23 04:03 Corrected Sodium 146 mmol/L (136-145) H 01/14/23 04:03 Potassium 3.6 mmol/L (3.5-5.1) 01/14/23 04:03 Chloride 103 mmol/L (98-107) 01/14/23 04:03 Carbon Dioxide 42.3 mmol/L (21-32) H 01/14/23 04:03 BUN 49 mg/dL (7-18) H 01/14/23 04:03 Creatinine 1.00 mg/dL (0.70-1.30) 01/14/23 04:03 Est GFR (MDRD) Af Amer > 60 (>60) 01/14/23 04:03 Est GFR (MDRD) Non-Af > 60 (>60) 01/14/23 04:03 Glucose 158 mg/dL (65-99) H 01/14/23 04:03 Calcium 9.0 mg/dL (8.5-10.1) 01/14/23 04:03 Corrected Calcium 9.7 mg/dL (8.5-10.1) 01/14/23 04:03 Magnesium 2.2 mg/dL (2.0-2.9) 01/13/23 04:01 Total Bilirubin 1.10 mg/dL (0.2-1.0) H 01/14/23 04:03 AST 18 Units/L (15-37) 01/14/23 04:03 ALT 13 Units/L (12-78) 01/14/23 04:03 Alkaline Phosphatase 104 Units/L (46-116) 01/14/23 04:03 B-Natriuretic Peptide 193 pg/mL (0-79) H 01/14/23 04:03 Total Protein 6.7 g/dL (6.4-8.2) 01/14/23 04:03 Albumin 3.1 g/dL (3.4-5.0) L 01/14/23 04:03 Globulin 3.6 g/dL (2.5-4.5) 01/14/23 04:03 Albumin/Globulin Ratio 0.9 Ratio (1.1-2.1) L 01/14/23 04:03 Specimen Type Catherized urine 01/05/23 19: Urine Color [place] (YELLOW) 01/05/23 19: Urine Appearance Clear (CLEAR) 01/05/23 19: Urine pH 5.0 (5.0 - 8.0) 01/05/23 19: Ur Specific Counce 1.030 (1.000-1.030) 01/05/23 19: Urine Protein 3+ (NEGATIVE) 01/05/23 19: Urine Glucose (UA) Negative (NEGATIVE) 01/05/23: Urine Ketones 2+ (NEGATIVE) 01/05/23 19: Urine Blood 5+ (NEGATIVE) 01/05/23 19: Urine Nitrite Negative (NEGATIVE) 01/05/23: Urine Bilirubin Negative (NEGATIVE) 01/05/23 19: Urine Urobilinogen 1+ (NORMAL) 01/05/23 19: Ur Leukocyte Esterase 1+ (NEGATIVE) 01/05/23 19:27 Urine RBC 30-50 /HPF (0-3) A 01/05/23 19: Urine WBC 0-2 /HPF (0-5) 01/05/23 19: Ur Squamous Epith Cells Rare /HPF (NEGATIVE) 01/05/23 19: Urine Bacteria Trace /HPF (NEGATIVE) 01/05/23 19: Hyaline Casts Few /LPF (NEGATIVE) 01/05/23 19: Urine Mucus Many /HPF (NEGATIVE) 01/05/23 19: Ur Culture Indicated? No/not indicated 01/05/23 19: Digoxin 0.81 ng/mL (0.9-2) L 01/14/23 04:03 Resp Viral Panel (PCR) See scanned report 01/05/23 14:00 - Plan (1) CHF (congestive heart failure) Status: Chronic Qualifiers: Heart failure type: unspecified Heart failure chronicity: acute on chronic Qualified Code(s): I50.9 - Heart failure, unspecified Plan: TPN, ALBUMIN 25% IV DAILY, MEGACE 40MG BID, COREG 6.25 BID, CARDIZEM 60MG BID, DIGOXIN 0.125MG DAILY, COUMADIN 2.5MG HS, FUROSEMIDE 40MG IV BID, LEVAQUIN 750MG IV DAILY, PULMICORT NEBS BID, XOPENEX NEBS Q6H, MUCOMYST IN NEB [place] Q6H, ROBITUSSIN DM 10ML QID, TUSSIONEX 5ML Q12H PRN, FLONASE 1 SPRAY BID, CLARITIN D 1 TAB Q12H, ULTRAM 50MG Q4H PRN, HALDOL 2-4MG IM Q4H PRN, AND THE POTASSIUM AND MAGNESIUM PROTOCOLS. RESUME HOME MEDS (2) Atrial fibrillation with RVR Status: Acute (3) Acute bronchitis Status: Acute Qualifiers: Bronchitis organism: parainfluenza virus Qualified Code(s): J20.4 - Acute bronchitis due to parainfluenza virus (4) Hypokalemia Status: Acute (5) Dementia Status: Chronic Qualifiers: Dementia type: unspecified type Dementia severity: moderate Dementia behavioral or psychological symptom: with agitation Qualified Code(s): F03.B11 - Unspecified dementia, moderate, with agitation (6) BPH (benign prostatic hyperplasia) Status: Chronic Qualifiers: Lower urinary tract symptom presence: unspecified whether lower urinary tract symptoms present Qualified Code(s): N40.0 - Benign prostatic hyperplasia without lower urinary tract symptoms (7) GERD (gastroesophageal reflux disease) Status: Chronic Qualifiers: Esophagitis presence: esophagitis presence not specified Qualified Code(s): K21.9 - Gastro-esophageal reflux disease without esophagitis (8) CAD (coronary artery disease) Status: Chronic Qualifiers: Coronary Disease-Associated Artery/Lesion type: bypass graft [place] vs. transplanted heart: [place] heart Associated angina: unspecified whether angina present Qualified Code(s): I25.810 - Atherosclerosis of coronary artery bypass graft(s) without angina pectoris
[2023-01-14] MEDS ORDERED: STERILE WATER IRRIGATION IR ONE (13:55)
[2023-01-14 14:42] LABS: BILIRUBIN,URINE NEGATIVE (NEGATIVE); BLOOD/HEMOGLOBIN,URINE 5+ (NEGATIVE); GLUCOSE, URINE NEGATIVE (NEGATIVE); KETONES,URINE 1+ (NEGATIVE); LEUKOCYTE ESTERASE ,URINE 1+ (NEGATIVE); NITRITES,URINE NEGATIVE (NEGATIVE); PH,URINE 6.5 (5.0 - 8.0); PROTEIN,URINE 3+ (NEGATIVE); UROBILINOGEN,URINE 1+ (NORMAL)
[2023-01-14 14:51] LABS: APPEARANCE,URINE HAZY (CLEAR); COLOR,URINE AMBER (YELLOW)
[2023-01-14 14:52] LABS: BACTERIA,URINE TRACE /HPF (NEGATIVE); RBC,URINE TNTC /HPF (0-3); SQUAMOUS EPITHELIAL CELL,UR RARE /HPF (NEGATIVE)
[2023-01-14] MEDS: COUMADIN TAB 2.5 MG (JANTOVEN) PO SCH (20:35)
[2023-01-14] MEDS: NEURONTIN CAP 300 MG PO SCH (20:37)
[2023-01-14] MEDS: ULTRAM PO PRN (21:20)
[2023-01-15] MEDS: MUCOMYST 20% 200 MG/ML NEB SCH ×5 (00:03→17:02)
[2023-01-15] MEDS: XOPENEX 1.25 MG/3 ML NEBULE NEB SCH ×5 (00:03→17:03)
[2023-01-15 05:13] LABS: INR 1.31 (0.8-1.3)
[2023-01-15 05:14] LABS: BASOPHILS % (AUTO) 0.2 % (0.2-1.0); EOSINOPHILS % (AUTO) 0.6 % (0.9-2.9); HEMATOCRIT 38.4 % (42.0-54.0); LYMPHOCYTES # (AUTO) 0.9 X10^3/uL (1.3-2.9); LYMPHOCYTES % (AUTO) 10.6 % (21.0-51.0); MEAN CORPUSCULAR HEMOGLOBIN 30.4 pg (27.0-34.0); MEAN CORPUSCULAR HGB CONC 33.9 g/dL (33.0-35.0); MEAN CORPUSCULAR VOLUME 89.7 fL (80.0-100.0); MEAN PLATELET VOLUME 7.4 fL (7.4-11.0); MONOCYTES # (AUTO) 1.1 x10^3/uL (0.3-0.8); MONOCYTES % (AUTO) 12.3 % (0.0-13.0); NEUTROPHILS # (AUTO) 6.6 x10^3/uL (2.2-4.8); NEUTROPHILS % (AUTO) 76.3 % (42.0-75.0); PLATELET COUNT 183 X10^3/uL (150.0-450.0); RED BLOOD COUNT 4.28 X10^6/uL (4.7-6.0); RED CELL DISTRIBUTION WIDTH 14.8 % (11.6-16.5); WHITE BLOOD COUNT 8.6 X10^3/uL (3.6-10.0)
[2023-01-15 05:36] LABS: ALANINE AMINOTRANSFERASE 12 Units/L (12-78); ALBUMIN 3.4 g/dL (3.4-5.0); ALKALINE PHOSPHATASE 95 Units/L (46-116); ASPARTATE AMINO TRANSFERASE 20 Units/L (15-37); BLOOD UREA NITROGEN 44 mg/dL (7-18); CALCIUM 9.3 mg/dL (8.5-10.1); CARBON DIOXIDE 41.8 mmol/L (21-32); CHLORIDE 104 mmol/L (98-107); COR NA(FOR HYPERGLY) 148 mmol/L (136-145); CREATININE 0.94 mg/dL (0.70-1.30); DIGOXIN 0.62 ng/mL (0.9-2); GLUCOSE 146 mg/dL (65-99); POTASSIUM 3.5 mmol/L (3.5-5.1); SODIUM 147 mmol/L (136-145); TOTAL PROTEIN 6.8 g/dL (6.4-8.2); eGFR NON BLACK RACES > 60 (>60)
--- NOTE | 2023-01-15 07:41 | RAD ---
HISTORYShortness of breathSTUDYChest AP [id number] ent is status post median sternotomy and CABG. Heart is enlarged. No congestive heart failure is noted. No acute alveolar infiltrates or pleural effusions are identified. Bony thorax is unremarkable.IMPRESSIONCardiomegaly without congestive heart failureNo infiltratesElectronically signed by: ISABELLE CALVO (Jan 15, 2023 07:40:34)
[2023-01-15] MEDS: PULMICORT NEB TX 0.5 MG NEB SCH ×3 (07:50→21:00)
[2023-01-15] MEDS: ALBUMIN HUMAN 25%- 100 ML 100 ML IV SCH (08:24)
[2023-01-15] MEDS: LEVAQUIN PREMIX IV 750 MG 750 MG/150 ML BAG IV SCH (08:25)
[2023-01-15] MEDS: LASIX IVP SCH ×2 (08:26→17:20)
[2023-01-15] MEDS: FLOMAX PO SCH ×2 (08:26→21:24)
[2023-01-15] MEDS: MICRO K EXTEN CAP 10 MEQ PO SCH (08:26)
[2023-01-15] MEDS: TUSSIONEX PENNKINETIC SUSP PO PRN ×2 (08:26→21:25)
[2023-01-15] MEDS: PROTONIX INJ 40 MG VIAL IVP SCH ×2 (08:26→21:26)
[2023-01-15] MEDS: MICRO K EXTEN CAP 10 MEQ PO PRN (08:27)
[2023-01-15] MEDS: LANOXIN or DIGITEK PO SCH (08:27)
[2023-01-15] MEDS: LIPITOR TAB 10 MG PO SCH (08:27)
[2023-01-15] MEDS: CARDIZEM TAB 30 MG PLAIN PO SCH ×2 (08:27→21:23)
[2023-01-15] MEDS: ARICEPT TAB 5 MG PO SCH ×2 (08:27→21:25)
[2023-01-15] MEDS: FOLIC ACID TAB 1 MG PO SCH (08:27)
[2023-01-15] MEDS: MEGACE PO SCH ×2 (08:27→21:24)
[2023-01-15] MEDS: NAMENDA TAB 10 MG PO SCH ×2 (08:27→21:24)
[2023-01-15] MEDS: COREG TAB 3.125 MG PO SCH ×2 (08:28→21:24)
[2023-01-15] MEDS: ROBITUSSIN DM PO SCH ×4 (08:29→21:25)
--- NOTE | 2023-01-15 09:58 | PCM.PROG ---
Progress Note - Progress Note for Day of Date of Exam: 01/14/23 - Subjective Subjective: IS CURRENTLY INPATIENT STATUS FOR TREATMENT OF CHF EXACERBATION, ATRIAL FIBRILLATION, ACUTE BRONCHITIS, AND HYPOALBUMINEMIA. HE HAS A PMH OF DEMENTIA, GLAUCOMA, GERD, BPH, CAD, ATRIAL FIBRILLATION, CARDIAC STENTS, CABG, AND TONSILLECTOMY. HE REMAINS IN THE INTENSIVE CARE UNIT. HE CON TINUES TO COMPLAIN OF A PRODUCTIVE COUGH, SHORTNESS OF BREATH AT TIMES, AND GENERALIZED WEAKNESS. HE CONTINUES TO COMPLAIN OF A DECREASED APPETITE AND HAS HAD POOR ORAL INTAKE THE PAST FEW DAYS. HE DOES ADMIT TO SOME IMPROVEMENT IN COUGH AND SHORTNESS OF BREATH TODAY. ON EXAMINATION, HEART IS REGULAR IN RATE AND RHYTHM. BILATERAL LUNGS ARE NOTED WITH DIMINISHED LUNG SOUNDS THROUGHOUT. ABDOMEN IS ROUND, SOFT, AND NON-TENDER WITH NORMAL BOWEL SOUNDS NOTED IN ALL QUADRANTS. GOOD MOVEMENT NOTED IN UPPER AND LOWER EXTREMITIES WITH TRACE LOWER EXTREMITY EDEMA NOTED. HIS VITALS THIS MORNING ARE: 98.2-91-18-98%-118/68. HE IS CURRENTLY UTILIZING OXYGEN VIA NASAL CANNULA AT 2 LPM. LABS WERE OBTAINED. WBC 9.0, RBC 4.38, HGB 13.3, HCT 39.4, PLT COUNT 215, INR 1.80, SODIUM 146, POTASSIUM 3.6, CHLORIDE 103, CARBON DIOXIDE 42.3, BUN 49, CREATININE 1.00, GLUCOSE 158, CALCIUM 9.0, TOTAL BILI 1.10, AST 18, ALT 13, ALK PHOS 104, BNP 193, TOTAL PROTEIN 6.7, ALBUMIN 3.1. AIT POSITIVE FOR PARAINFLUENZA VIRUS. A CHEST XRAY WAS OBTAINED AND REVEALED: Cardiomegaly without congestive heart failure. Lungs clear. HE IS CURRENTLY RECEIVING TPN, ALBUMIN 25% IV DAILY, MEGACE BID, PROTONIX 40MG IV BID, COREG 6.25MG BID, CARDIZEM CD 60MG BID, COUMADIN 2.5MG HS, DIGOXIN 0.125MG DAILY, FUROSEMIDE 40MG IV BID, LEVAQUIN 750MG IV DAILY, PULMICORT NEBS BID, XOPENEX NEBS Q6H, MUCOMYST IN NEBS Q6H, ROBITUSSIN DM 10ML QID, TUSSIONEX 5ML Q12H PRN, FLONASE 1 SPRAY BID, CLARITIN D 1 TAB Q12H, ULTRAM 50MG Q4H PRN, HALDOL 2-4MG IM Q4H PRN, AND THE POTASSIUM AND MAGNESIUM PROTOCOLS. HIS HOME MEDICATIONS OF GABAPENTIN, MEMANTINE, GABAPENTIN, DONEPEZIL, POTASSIUM CHLORIDE, FOLIC ACID, TAMSULOSIN, AND ATORVASTATIN WERE ALSO RESUMED. PHYSICAL THERAPY HAS EVALUATED PATIENT AND RECOMMENDS CONTINUED PHYSICAL THERAPY SERVICES FOR PATIENT. WE WILL CONTINUE WITH CURRENT PLAN OF CARE TODAY. OTHERWISE, WE WILL FOLLOW-UP WITH AM LABS AND CHEST XRAY AND CONTINUE TO MONITOR. TIME SPENT ON CLINICAL ASSESSMENT, REVIWING LABS AND IMAGING, DECISION MAKING, AND DOCUMENTATION GREATER THAN 45 MINUTES. - Past Medical Family Social History Past Med/Fam/Surg Hx: No changes since H&P Allergies: Allergies No Known Drug Allergies Allergy (Verified 01/05/23 14:13) - Review of Systems ROS: No change since H&P - Vital Signs and I&O's Vital Signs: Temperature 97.2 F Pulse Rate [Left Brachial] 95 Pulse Rate 95 Respiratory Rate 31 Blood Pressure [Left Thigh] 154/76 Blood Pressure [Right Arm] 118/87 Blood Pressure [Left Arm] 131/94 Blood Pressure 141/84 O2 Sat by Pulse Oximetry 100 Intake and Output: Intake & Output 01/12/23 01/13/23 01/14/23 01/15/23 11:59 11:59 11:59 11:59 Intake Total 820 / 820 668 / 668 1155 / 1155 1821 / 1821 Output Total 885 / 885 1075 / 1075 700 / 700 2100 / 2100 Balance -65 / -65 -407 / -407 455 / 455 -279 / -279 - Physical Exam Oriented: Normal Eyes: Normal Ear: Normal Nose: Normal Throat: Normal Respiratory: Generalized, Rales Cardiovascular: Irregular (A-FIB ), Edema (TRACE ) : Normal Auscultation: Bowel Sounds: Normal Palpation: Normal Tenderness: Normal Skin: Normal Musculoskeletal: Normal Psychiatric: Normal Mood Description: Calm Affect: Normal Speech Pattern: Clear, Appropriate - Laboratory and Diagnostics Result Diagrams: 01/15/23 04:03 01/15/23 04:03 Labs: 01/05/23 14:30 Blood Blood Culture - Final 01/05/23 14:28 Blood Blood Culture - Final 01/05/23 14:00 Sputum - Expectorated Sputum Sputum Culture - Final 01/05/23 14:00 Sputum - Expectorated Sputum - Final Laboratory WBC 8.6 X10^3/uL (3.6-10.0) 01/15/23 04:03 RBC 4.28 X10^6/uL (4.7-6.0) L 01/15/23 04:03 Hgb 13.0 g/dL (13.5-18.0) L 01/15/23 04:03 Hct 38.4 % (42.0-54.0) L 01/15/23 04:03 MCV 89.7 fL (80.0-100.0) 01/15/23 04:03 MCH 30.4 pg (27.0-34.0) 01/15/23 04:03 MCHC 33.9 g/dL (33.0-35.0) 01/15/23 04:03 RDW 14.8 % (11.6-16.5) 01/15/23 04:03 Plt Count 183 X10^3/uL (150.0-450.0) 01/15/23 04:03 MPV 7.4 fL (7.4-11.0) 01/15/23 04:03 Neut % (Auto) 76.3 % (42.0-75.0) H 01/15/23 04:03 Lymph % (Auto) 10.6 % (21.0-51.0) L 01/15/23 04:03 [place] % (Auto) 12.3 % (0.0-13.0) 01/15/23 04:03 Eos % (Auto) 0.6 % (0.9-2.9) L 01/15/23 04:03 Baso % (Auto) 0.2 % (0.2-1.0) 01/15/23 04:03 Neut # (Auto) 6.6 x10^3/uL (2.2-4.8) H 01/15/23 04:03 Lymph # (Auto) 0.9 X10^3/uL (1.3-2.9) L 01/15/23 04:03 [place] # (Auto) 1.1 x10^3/uL (0.3-0.8) H 01/15/23 04:03 Eos # (Auto) 0.0 x10^3/uL (0.0-0.2) 01/15/23 04:03 Baso # (Auto) 0.0 X10^3/uL (0.0-0.1) 01/15/23 04:03 Absolute Nucleated RBC 0.0 /100WBC 01/15/23 04:03 PT 16.1 SECONDS (11.8-14.3) 01/15/23 04:03 INR Target Range - 01/15/23 04:03 INR 1.31 (0.8-1.3) H 01/15/23 04:03 Sodium 147 mmol/L (136-145) H 01/15/23 04:03 Corrected Sodium 148 mmol/L (136-145) H 01/15/23 04:03 Potassium 3.5 mmol/L (3.5-5.1) 01/15/23 04:03 Chloride 104 mmol/L (98-107) 01/15/23 04:03 Carbon Dioxide 41.8 mmol/L (21-32) H 01/15/23 04:03 BUN 44 mg/dL (7-18) H 01/15/23 04:03 Creatinine 0.94 mg/dL (0.70-1.30) 01/15/23 04:03 Est GFR (MDRD) Af Amer > 60 (>60) 01/15/23 04:03 Est GFR (MDRD) Non-Af > 60 (>60) 01/15/23 04:03 Glucose 146 mg/dL (65-99) H 01/15/23 04:03 Calcium 9.3 mg/dL (8.5-10.1) 01/15/23 04:03 Corrected Calcium TNP 01/15/23 04:03 Magnesium 2.2 mg/dL (2.0-2.9) 01/13/23 04:01 Total Bilirubin 1.20 mg/dL (0.2-1.0) H 01/15/23 04:03 AST 20 Units/L (15-37) 01/15/23 04:03 ALT 12 Units/L (12-78) 01/15/23 04:03 Alkaline Phosphatase 95 Units/L (46-116) 01/15/23 04:03 B-Natriuretic Peptide 198 pg/mL (0-79) H 01/15/23 04:03 Total Protein 6.8 g/dL (6.4-8.2) 01/15/23 04:03 Albumin 3.4 g/dL (3.4-5.0) 01/15/23 04:03 Globulin 3.4 g/dL (2.5-4.5) 01/15/23 04:03 Albumin/Globulin Ratio 1.0 Ratio (1.1-2.1) L 01/15/23 04:03 Specimen Type Catherized urine 01/14/23 14:20 Urine Color [place] (YELLOW) 01/14/23 14:20 Urine Appearance Hazy (CLEAR) 01/14/23 14:20 Urine pH 6.5 (5.0 - 8.0) 01/14/23 14:20 Ur Specific [place] 1.010 (1.000-1.030) 01/14/23 14:20 Urine Protein 3+ (NEGATIVE) 01/14/23 14:20 Urine Glucose (UA) Negative (NEGATIVE) 01/14/23 14:20 Urine Ketones 1+ (NEGATIVE) 01/14/23 14:20 Urine Blood 5+ (NEGATIVE) 01/14/23 14:20 Urine Nitrite Negative (NEGATIVE) 01/14/23 14:20 Urine Bilirubin Negative (NEGATIVE) 01/14/23 14:20 Urine Urobilinogen 1+ (NORMAL) 01/14/23 14:20 Ur Leukocyte Esterase 1+ (NEGATIVE) 01/14/23 14:20 Urine RBC Tntc /HPF (0-3) A 01/14/23 14:20 Urine WBC 5-10 /HPF (0-5) A 01/14/23 14:20 Ur Squamous Epith Cells Rare /HPF (NEGATIVE) 01/14/23 14:20 Urine Bacteria Trace /HPF (NEGATIVE) 01/14/23 14:20 Hyaline Casts Few /LPF (NEGATIVE) 01/05/23 19:27 Urine Mucus Many /HPF (NEGATIVE) 01/05/23 19:27 Ur Culture Indicated? No/not indicated 01/14/23 14:20 Digoxin 0.62 ng/mL (0.9-2) L 01/15/23 04:03 Resp Viral Panel (PCR) See scanned report 01/05/23 14:00 - Plan (1) CHF (congestive heart failure) Status: Chronic Qualifiers: Heart failure type: unspecified Heart failure chronicity: acute on chronic Qualified Code(s): I50.9 - Heart failure, unspecified Plan: TPN, ALBUMIN 25% IV DAILY, MEGACE 40MG BID, COREG 6.25 BID, CARDIZEM 60MG BID, DIGOXIN 0.125MG DAILY, COUMADIN 2.5MG HS, FUROSEMIDE 40MG IV BID, LEVAQUIN 750MG IV DAILY, PULMICORT NEBS BID, XOPENEX NEBS Q6H, MUCOMYST IN NEB [place] Q6H, ROBITUSSIN DM 10ML QID, TUSSIONEX 5ML Q12H PRN, FLONASE 1 SPRAY BID, CLARITIN D 1 TAB Q12H, ULTRAM 50MG Q4H PRN, HALDOL 2-4MG IM Q4H PRN, AND THE POTASSIUM AND MAGNESIUM PROTOCOLS. RESUME HOME MEDS (2) Atrial fibrillation with RVR Status: Acute (3) Acute bronchitis Status: Acute Qualifiers: Bronchitis organism: parainfluenza virus Qualified Code(s): J20.4 - Acute bronchitis due to parainfluenza virus (4) Hypokalemia Status: Acute (5) Dementia Status: Chronic Qualifiers: Dementia type: unspecified type Dementia severity: moderate Dementia behavioral or psychological symptom: with agitation Qualified Code(s): F03.B11 - Unspecified dementia, moderate, with agitation (6) BPH (benign prostatic hyperplasia) Status: Chronic Qualifiers: Lower urinary tract symptom presence: unspecified whether lower urinary tract symptoms present Qualified Code(s): N40.0 - Benign prostatic hyperplasia without lower urinary tract symptoms (7) GERD (gastroesophageal reflux disease) Status: Chronic Qualifiers: Esophagitis presence: esophagitis presence not specified Qualified Code(s): K21.9 - Gastro-esophageal reflux disease without esophagitis (8) CAD (coronary artery disease) Status: Chronic Qualifiers: Coronary Disease-Associated Artery/Lesion type: bypass graft [place] vs. transplanted heart: [place] heart Associated angina: unspecified whether angina present Qualified Code(s): I25.810 - Atherosclerosis of coronary artery bypass graft(s) without angina pectoris
--- NOTE | 2023-01-15 10:53 | PCM.PROG ---
Progress Note - Progress Note for Day of Date of Exam: 01/15/23 - Subjective Subjective: IS CURRENTLY INPATIENT STATUS FOR TREATMENT OF CHF EXACERBATION, ATRIAL FIBRILLATION, ACUTE BRONCHITIS, AND HYPOALBUMINEMIA. HE HAS A PMH OF DEMENTIA, GLAUCOMA, GERD, BPH, CAD, ATRIAL FIBRILLATION, CARDIAC STENTS, CABG, AND TONSILLECTOMY. HE REMAINS IN THE INTENSIVE CARE UNIT. HE CON TINUES TO COMPLAIN OF A COUGH, SHORTNESS OF BREATH AT TIMES, AND GENERALIZED WEAKNESS. COUGH IS NO LONGER PRODUCTIVE. HE ALSO CONTINUES TO COMPLAIN OF A DECREASED APPETITE. HE ADMITS SLIGHT IMPROVEMENT IN SYMPTOMS TODAY. HE WAS ABLE TO SIT ON THE SIDE OF THE BED AND WORK WITH PHYSICAL THERAPY YESTERDAY. ON EXAMINATION TODAY, HEART IS REGULAR IN RATE AND RHYTHM. BILATERAL LUNGS ARE NOTED WITH DIMINISHED LUNG SOUNDS THROUGHOUT. ABDOMEN IS ROUND, SOFT, AND NON- TENDER WITH NORMAL BOWEL SOUNDS NOTED IN ALL QUADRANTS. GOOD MOVEMENT NOTED IN UPPER AND LOWER EXTREMITIES WITH TRACE LOWER EXTREMITY EDEMA NOTED. HIS VITALS THIS MORNING ARE: 97.2-95-21-100%-141/84. HE IS CURRENTLY UTILIZING OXYGEN VIA N JORGE CANNULA AT 2 LPM. LABS WERE OBTAINED. WBC 8.6, RBC 4.28, HGB 13.0, HCT 38.4, PLT COUNT 183, INR 1.31, SODIUM 147, POTASSIUM 3.5, CHLORIDE 104, BUN 44, CREATININE 0.94, GLUCOSE 146, CALCIUM 9.3, TOTAL BILI 1.20, AST 20, ALT 12, ALK PHOS 95, BNP 198, TOTAL PROTEIN 6.8, ALBUMIN 3.4. A CHEST XRAY WAS OBTAINED AND REVEALED: Patient is status post median sternotomy and CABG. Heart is enlarged. No congestive heart failure is noted. No acute alveolar infiltrates or pleural effusions are identified. Bony thorax is unremarkable. HE IS CURRENTLY RECEIVING TPN, ALBUMIN 25% IV DAILY, MEGACE BID, PROTONIX 40MG IV BID, COREG 6.25MG BID, CARDIZEM CD 60MG BID, COUMADIN 2.5MG HS, DIGOXIN 0.125MG DAILY, FUROSEMIDE 40MG IV BID, LEVAQUIN 750MG IV DAILY, PULMICORT NEBS BID, XOPENEX NEBS Q6H, MUCOMYST IN NEBS Q6H, ROBITUSSIN DM 10ML QID, TUSSIONEX 5ML Q12H PRN, FLONASE 1 SPRAY BID, CLARITIN D 1 TAB Q12H, ULTRAM 50MG Q4H PRN, HALDOL 2-4MG IM Q4H PRN, AND THE POTASSIUM AND MAGNESIUM PROTOCOLS. HIS HOME MEDICATIONS OF GABAPENTIN, MEMANTINE, GABAPENTIN, DONEPEZIL, POTASSIUM CHLORIDE, FOLIC ACID, TAMSULOSIN, AND ATORVASTATIN WERE ALSO RESUMED. PHYSICAL THERAPY HAS EVALUATED PATIENT AND RECOMMENDS CONTINUED PHYSICAL THERAPY SERVICES FOR PATIENT. WE ARE ARRANGING A PHYSICAL THERAPY AND REHAB STAY AT THE HALF-WAY. OTHERWISE, WE WILL CONTINUE WITH CURRENT PLAN OF CARE TODAY. WE WILL FOLLOW-UP WITH AM LABS AND CHEST XRAY AND CONTINUE TO MONITOR. TIME SPENT ON CLINICAL ASSESSMENT, REVIWING LABS AND I MAGING, DECISION MAKING, AND DOCUMENTATION GREATER THAN 45 MINUTES. - Past Medical Family Social History Past Med/Fam/Surg Hx: No changes since H&P Allergies: Allergies No Known Drug Allergies Allergy (Verified 01/05/23 14:13) - Review of Systems ROS: No change since H&P - Vital Signs and I&O's Vital Signs: Temperature 97.2 F Pulse Rate [Left Brachial] 95 Pulse Rate 95 Respiratory Rate 31 Blood Pressure [Left Thigh] 154/76 Blood Pressure [Right Arm] 118/87 Blood Pressure [Left Arm] 131/94 Blood Pressure 141/84 O2 Sat by Pulse Oximetry 100 Intake and Output: Intake & Output 01/12/23 01/13/23 01/14/23 01/15/23 11:59 11:59 11:59 11:59 Intake Total 820 / 820 668 / 668 1155 / 1155 1821 / 1821 Output Total 885 / 885 1075 / 1075 700 / 700 2100 / 2100 Balance -65 / -65 -407 / -407 455 / 455 -279 / -279 - Physical Exam Oriented: Normal Eyes: Normal Ear: Normal Nose: Normal Throat: Normal Respiratory: Generalized, Rales Cardiovascular: Irregular (A-FIB ), Edema (TRACE ) : Normal Auscultation: Bowel Sounds: Normal Palpation: Normal Tenderness: Normal Skin: Normal Musculoskeletal: Normal Psychiatric: Normal Mood Description: Calm Affect: Normal Speech Pattern: Clear, Appropriate - Laboratory and Diagnostics Result Diagrams: 01/15/23 04:03 01/15/23 04:03 Labs: 01/05/23 14:30 Blood Blood Culture - Final 01/05/23 14:28 Blood Blood Culture - Final 01/05/23 14:00 Sputum - Expectorated Sputum Sputum Culture - Final 01/05/23 14:00 Sputum - Expectorated Sputum - Final Laboratory WBC 8.6 X10^3/uL (3.6-10.0) 01/15/23 04:03 RBC 4.28 X10^6/uL (4.7-6.0) L 01/15/23 04:03 Hgb 13.0 g/dL (13.5-18.0) L 01/15/23 04:03 Hct 38.4 % (42.0-54.0) L 01/15/23 04:03 MCV 89.7 fL (80.0-100.0) 01/15/23 04:03 MCH 30.4 pg (27.0-34.0) 01/15/23 04:03 MCHC 33.9 g/dL (33.0-35.0) 01/15/23 04:03 RDW 14.8 % (11.6-16.5) 01/15/23 04:03 Plt Count 183 X10^3/uL (150.0-450.0) 01/15/23 04:03 MPV 7.4 fL (7.4-11.0) 01/15/23 04:03 Neut % (Auto) 76.3 % (42.0-75.0) H 01/15/23 04:03 Lymph % (Auto) 10.6 % (21.0-51.0) L 01/15/23 04:03 [place] % (Auto) 12.3 % (0.0-13.0) 01/15/23 04:03 Eos % (Auto) 0.6 % (0.9-2.9) L 01/15/23 04:03 Baso % (Auto) 0.2 % (0.2-1.0) 01/15/23 04:03 Neut # (Auto) 6.6 x10^3/uL (2.2-4.8) H 01/15/23 04:03 Lymph # (Auto) 0.9 X10^3/uL (1.3-2.9) L 01/15/23 04:03 [place] # (Auto) 1.1 x10^3/uL (0.3-0.8) H 01/15/23 04:03 Eos # (Auto) 0.0 x10^3/uL (0.0-0.2) 01/15/23 04:03 Baso # (Auto) 0.0 X10^3/uL (0.0-0.1) 01/15/23 04:03 Absolute Nucleated RBC 0.0 /100WBC 01/15/23 04:03 PT 16.1 SECONDS (11.8-14.3) 01/15/23 04:03 INR Target Range - 01/15/23 04:03 INR 1.31 (0.8-1.3) H 01/15/23 04:03 Sodium 147 mmol/L (136-145) H 01/15/23 04:03 Corrected Sodium 148 mmol/L (136-145) H 01/15/23 04:03 Potassium 3.5 mmol/L (3.5-5.1) 01/15/23 04:03 Chloride 104 mmol/L (98-107) 01/15/23 04:03 Carbon Dioxide 41.8 mmol/L (21-32) H 01/15/23 04:03 BUN 44 mg/dL (7-18) H 01/15/23 04:03 Creatinine 0.94 mg/dL (0.70-1.30) 01/15/23 04:03 Est GFR (MDRD) Af Amer > 60 (>60) 01/15/23 04:03 Est GFR (MDRD) Non-Af > 60 (>60) 01/15/23 04:03 Glucose 146 mg/dL (65-99) H 01/15/23 04:03 Calcium 9.3 mg/dL (8.5-10.1) 01/15/23 04:03 Corrected Calcium TNP 01/15/23 04:03 Magnesium 2.2 mg/dL (2.0-2.9) 01/13/23 04:01 Total Bilirubin 1.20 mg/dL (0.2-1.0) H 01/15/23 04:03 AST 20 Units/L (15-37) 01/15/23 04:03 ALT 12 Units/L (12-78) 01/15/23 04:03 Alkaline Phosphatase 95 Units/L (46-116) 01/15/23 04:03 B-Natriuretic Peptide 198 pg/mL (0-79) H 01/15/23 04:03 Total Protein 6.8 g/dL (6.4-8.2) 01/15/23 04:03 Albumin 3.4 g/dL (3.4-5.0) 01/15/23 04:03 Globulin 3.4 g/dL (2.5-4.5) 01/15/23 04:03 Albumin/Globulin Ratio 1.0 Ratio (1.1-2.1) L 01/15/23 04:03 Specimen Type Catherized urine 01/14/23 14:20 Urine Color [place] (YELLOW) 01/14/23 14:20 Urine Appearance Hazy (CLEAR) 01/14/23 14:20 Urine pH 6.5 (5.0 - 8.0) 01/14/23 14:20 Ur Specific [place] 1.010 (1.000-1.030) 01/14/23 14:20 Urine Protein 3+ (NEGATIVE) 01/14/23 14:20 Urine Glucose (UA) Negative (NEGATIVE) 01/14/23 14:20 Urine Ketones 1+ (NEGATIVE) 01/14/23 14:20 Urine Blood 5+ (NEGATIVE) 01/14/23 14:20 Urine Nitrite Negative (NEGATIVE) 01/14/23 14:20 Urine Bilirubin Negative (NEGATIVE) 01/14/23 14:20 Urine Urobilinogen 1+ (NORMAL) 01/14/23 14:20 Ur Leukocyte Esterase 1+ (NEGATIVE) 01/14/23 14:20 Urine RBC Tntc /HPF (0-3) A 01/14/23 14:20 Urine WBC 5-10 /HPF (0-5) A 01/14/23 14:20 Ur Squamous Epith Cells Rare /HPF (NEGATIVE) 01/14/23 14:20 Urine Bacteria Trace /HPF (NEGATIVE) 01/14/23 14:20 Hyaline Casts Few /LPF (NEGATIVE) 01/05/23 19:27 Urine Mucus Many /HPF (NEGATIVE) 01/05/23 19:27 Ur Culture Indicated? No/not indicated 01/14/23 14:20 Digoxin 0.62 ng/mL (0.9-2) L 01/15/23 04:03 Resp Viral Panel (PCR) See scanned report 01/05/23 14:00 - Plan (1) CHF (congestive heart failure) Status: Chronic Qualifiers: Heart failure type: unspecified Heart failure chronicity: acute on chronic Qualified Code(s): I50.9 - Heart failure, unspecified Plan: TPN, ALBUMIN 25% IV DAILY, MEGACE 40MG BID, COREG 6.25 BID, CARDIZEM 60MG BID, DIGOXIN 0.125MG DAILY, COUMADIN 2.5MG HS, FUROSEMIDE 40MG IV BID, LEVAQUIN 750MG IV DAILY, PULMICORT NEBS BID, XOPENEX NEBS Q6H, MUCOMYST IN NEB [place] Q6H, ROBITUSSIN DM 10ML QID, TUSSIONEX 5ML Q12H PRN, FLONASE 1 SPRAY BID, CLARITIN D 1 TAB Q12H, ULTRAM 50MG Q4H PRN, HALDOL 2-4MG IM Q4H PRN, AND THE POTASSIUM AND MAGNESIUM PROTOCOLS. RESUME HOME MEDS (2) Atrial fibrillation with RVR Status: Acute (3) Acute bronchitis Status: Acute Qualifiers: Bronchitis organism: parainfluenza virus Qualified Code(s): J20.4 - Acute bronchitis due to parainfluenza virus (4) Hypokalemia Status: Acute (5) Dementia Status: Chronic Qualifiers: Dementia type: unspecified type Dementia severity: moderate Dementia behavioral or psychological symptom: with agitation Qualified Code(s): F03.B11 - Unspecified dementia, moderate, with agitation (6) BPH (benign prostatic hyperplasia) Status: Chronic Qualifiers: Lower urinary tract symptom presence: unspecified whether lower urinary tract symptoms present Qualified Code(s): N40.0 - Benign prostatic hyperplasia without lower urinary tract symptoms (7) GERD (gastroesophageal reflux disease) Status: Chronic Qualifiers: Esophagitis presence: esophagitis presence not specified Qualified Code(s): K21.9 - Gastro-esophageal reflux disease without esophagitis (8) CAD (coronary artery disease) Status: Chronic Qualifiers: Coronary Disease-Associated Artery/Lesion type: bypass graft [place] vs. transplanted heart: [place] heart Associated angina: unspecified whether angina present Qualified Code(s): I25.810 - Atherosclerosis of coronary artery bypass graft(s) without angina pectoris
[2023-01-15] MEDS ORDERED: DRUG FILTER EXTENSION SET ONE (14:01)
[2023-01-15] MEDS: TPN ELECTROLYTES IV SCH ×3 (14:40)
[2023-01-15] MEDS: CLINIMIX IV SCH ×3 (14:40)
[2023-01-15] MEDS: MVI IV SCH ×3 (14:40)
[2023-01-15] MEDS: DESYREL PO SCH (21:25)
[2023-01-15] MEDS: NEURONTIN CAP 300 MG PO SCH (21:26)
[2023-01-15] MEDS: COUMADIN TAB 2.5 MG (JANTOVEN) PO SCH (21:27)
[2023-01-16] MEDS: MUCOMYST 20% 200 MG/ML NEB SCH ×4 (00:33→17:32)
[2023-01-16] MEDS: XOPENEX 1.25 MG/3 ML NEBULE NEB SCH ×4 (00:33→17:01)
[2023-01-16 05:18] LABS: BASOPHILS % (AUTO) 0.2 % (0.2-1.0); EOSINOPHILS # (AUTO) 0.2 x10^3/uL (0.0-0.2); EOSINOPHILS % (AUTO) 2.2 % (0.9-2.9); HEMOGLOBIN 13.5 g/dL (13.5-18.0); LYMPHOCYTES # (AUTO) 0.9 X10^3/uL (1.3-2.9); LYMPHOCYTES % (AUTO) 8.9 % (21.0-51.0); MEAN CORPUSCULAR HEMOGLOBIN 30.3 pg (27.0-34.0); MEAN CORPUSCULAR HGB CONC 33.7 g/dL (33.0-35.0); MEAN CORPUSCULAR VOLUME 89.8 fL (80.0-100.0); MEAN PLATELET VOLUME 7.5 fL (7.4-11.0); MONOCYTES # (AUTO) 0.9 x10^3/uL (0.3-0.8); NEUTROPHILS % (AUTO) 79.7 % (42.0-75.0); PLATELET COUNT 170 X10^3/uL (150.0-450.0); RED BLOOD COUNT 4.46 X10^6/uL (4.7-6.0); RED CELL DISTRIBUTION WIDTH 14.7 % (11.6-16.5)
[2023-01-16 05:24] LABS: INR 1.23 (0.8-1.3)
[2023-01-16 05:33] LABS: ALANINE AMINOTRANSFERASE 15 Units/L (12-78); ALBUMIN 3.7 g/dL (3.4-5.0); ALKALINE PHOSPHATASE 95 Units/L (46-116); ASPARTATE AMINO TRANSFERASE 25 Units/L (15-37); BLOOD UREA NITROGEN 41 mg/dL (7-18); CARBON DIOXIDE 38.5 mmol/L (21-32); CHLORIDE 103 mmol/L (98-107); COR NA(FOR HYPERGLY) 146 mmol/L (136-145); CREATININE 0.88 mg/dL (0.70-1.30); DIGOXIN 0.51 ng/mL (0.9-2); GLUCOSE 118 mg/dL (65-99); POTASSIUM 3.1 mmol/L (3.5-5.1); SODIUM 146 mmol/L (136-145); TOTAL PROTEIN 6.9 g/dL (6.4-8.2); eGFR NON BLACK RACES > 60 (>60)
--- NOTE | 2023-01-16 06:02 | RAD ---
HISTORYSOBSTUDYCHEST, 1 [id number]/2023TECHNIQUEPortabl e chest radiographFINDINGSStable size and morphology of the cardiac silhouette and postoperative changes of coronary bypass surgery. No developing infiltrates, accumulating pleural fluid collections, or evidence of pneumothorax.IMPRESSIONStable cardiomegaly without pulmonary edema or acute infiltratesElectronically signed by: CHARLIE RAYO (Jan 16, 2023 06:01:03)
[2023-01-16] MEDS: PULMICORT NEB TX 0.5 MG NEB SCH ×2 (08:19→20:24)
[2023-01-16] MEDS: MEGACE PO SCH ×2 (09:42→20:44)
[2023-01-16] MEDS: FLOMAX PO SCH ×2 (09:42→20:45)
[2023-01-16] MEDS: NAMENDA TAB 10 MG PO SCH ×2 (09:42→20:43)
[2023-01-16] MEDS: ROBITUSSIN DM PO SCH ×4 (09:42→20:44)
[2023-01-16] MEDS: ARICEPT TAB 5 MG PO SCH ×2 (09:42→20:44)
[2023-01-16] MEDS: FOLIC ACID TAB 1 MG PO SCH (09:42)
[2023-01-16] MEDS: LIPITOR TAB 10 MG PO SCH (09:43)
[2023-01-16] MEDS: LASIX IVP SCH (09:43)
[2023-01-16] MEDS: MICRO K EXTEN CAP 10 MEQ PO SCH (09:43)
[2023-01-16] MEDS: COREG TAB 3.125 MG PO SCH ×2 (09:43→20:43)
[2023-01-16] MEDS: LANOXIN or DIGITEK PO SCH (09:43)
[2023-01-16] MEDS: CARDIZEM TAB 30 MG PLAIN PO SCH ×2 (09:43→20:44)
[2023-01-16] MEDS: ALBUMIN HUMAN 25%- 100 ML 100 ML IV SCH (09:44)
[2023-01-16] MEDS: PROTONIX INJ 40 MG VIAL IVP SCH ×2 (09:44→20:44)
[2023-01-16] MEDS: LEVAQUIN PREMIX IV 750 MG 750 MG/150 ML BAG IV SCH (09:44)
--- NOTE | 2023-01-16 11:37 | PCM.PROG ---
Progress Note Progress Note for Day of Date of Exam: 01/16/23 Subjective Subjective: Patient seen at bedside, no acute events overnight. He is currently on 3L NC. He still has some productive cough. He does have some trouble with swallowing, speech recommended pureed diet. He was able to take most of his medicines today. He is also receiving TPN. He is currently admitted for CHF exacerbation, generalized weakness and bronchitis. CXR today has similar findings, no effusions or infiltrate. He has been getting IV lasix, good urine output. PT recommends SNF placement. Labs/imaging reviewed: K 3.1 BNP 209 Plan: continue IV Levaquin, wean O2 as tolerated to keep sats > 90%. Will decrease lasix to IV daily, monitor I&Os, daily weights. Follow echo results. Continue pureed diet as speech recommendations. Continue TPN. Replace K PO. Monitor AM labs. PT/OT as tolerated. CM to work on SNF placement on Wednesday. Time spent for reviewing labs/imaging, physical exam, assessment/plan and documentation greater than 45 mins. Past Medical Family Social History Past Med/Fam/Surg Hx: No changes since H&P Allergies: Allergies No Known Drug Allergies Allergy (Verified 01/05/23 14:13) Review of Systems ROS: No change since H&P Vital Signs and I&O's Vital Signs: Temperature 98.1 F Pulse Rate [Left Brachial] 95 Pulse Rate 97 Respiratory Rate 22 Blood Pressure [Left Thigh] 154/76 Blood Pressure [Right Arm] 118/87 Blood Pressure [Left Arm] 131/94 Blood Pressure 146/82 O2 Sat by Pulse Oximetry 100 Intake and Output: Intake & Output 01/13/23 01/14/23 01/15/23 01/16/23 23:59 23:59 23:59 23:59 Intake Total 929 / 929 1804 / 1804 1867 / 1867 390 / 390 Output Total 600 / 600 1850 / 1850 650 / 650 Balance 329 / 329 -46 / -46 1217 / 1217 390 / 390 Physical Exam Oriented: Normal Eyes: Normal Ear: Normal Nose: Normal Throat: Normal Respiratory: Generalized and Rales Cardiovascular: Irregular (A-FIB ) and Edema (TRACE ) Auscultation: Bowel Sounds: Normal Tenderness: Normal Skin: Normal Musculoskeletal: Normal Psychiatric: Normal Mood Description: Calm Affect: Normal Speech Pattern: Clear and Appropriate Laboratory and Diagnostics Result Diagrams: 01/16/23 04:15 01/16/23 04:15 Labs: 01/05/23 14:30 Blood Blood Culture - Final 01/05/23 14:28 Blood Blood Culture - Final 01/05/23 14:00 Sputum - Expectorated Sputum Sputum Culture - Final 01/05/23 14:00 Sputum - Expectorated Sputum - Final Laboratory WBC 10.0 X10^3/uL (3.6-10.0) 01/16/23 04:15 RBC 4.46 X10^6/uL (4.7-6.0) L 01/16/23 04:15 Hgb 13.5 g/dL (13.5-18.0) 01/16/23 04:15 Hct 40.0 % (42.0-54.0) L 01/16/23 04:15 MCV 89.8 fL (80.0-100.0) 01/16/23 04:15 MCH 30.3 pg (27.0-34.0) 01/16/23 04:15 MCHC 33.7 g/dL (33.0-35.0) 01/16/23 04:15 RDW 14.7 % (11.6-16.5) 01/16/23 04:15 Plt Count 170 X10^3/uL (150.0-450.0) 01/16/23 04:15 MPV 7.5 fL (7.4-11.0) 01/16/23 04:15 Neut % (Auto) 79.7 % (42.0-75.0) H 01/16/23 04:15 Lymph % (Auto) 8.9 % (21.0-51.0) L 01/16/23 04:15 [place] % (Auto) 9.0 % (0.0-13.0) 01/16/23 04:15 Eos % (Auto) 2.2 % (0.9-2.9) 01/16/23 04:15 Baso % (Auto) 0.2 % (0.2-1.0) 01/16/23 04:15 Neut # (Auto) 8.0 x10^3/uL (2.2-4.8) H 01/16/23 04:15 Lymph # (Auto) 0.9 X10^3/uL (1.3-2.9) L 01/16/23 04:15 [place] # (Auto) 0.9 x10^3/uL (0.3-0.8) H 01/16/23 04:15 Eos # (Auto) 0.2 x10^3/uL (0.0-0.2) 01/16/23 04:15 Baso # (Auto) 0.0 X10^3/uL (0.0-0.1) 01/16/23 04:15 Absolute Nucleated RBC 0.0 /100WBC 01/16/23 04:15 PT 15.3 SECONDS (11.8-14.3) 01/16/23 04:15 INR Target Range - 01/16/23 04:15 INR 1.23 (0.8-1.3) 01/16/23 04:15 Sodium 146 mmol/L (136-145) H 01/16/23 04:15 Corrected Sodium 146 mmol/L (136-145) H 01/16/23 04:15 Potassium 3.1 mmol/L (3.5-5.1) L 01/16/23 04:15 Chloride 103 mmol/L (98-107) 01/16/23 04:15 Carbon Dioxide 38.5 mmol/L (21-32) H 01/16/23 04:15 BUN 41 mg/dL (7-18) H 01/16/23 04:15 Creatinine 0.88 mg/dL (0.70-1.30) 01/16/23 04:15 Est GFR (MDRD) Af Amer > 60 (>60) 01/16/23 04:15 Est GFR (MDRD) Non-Af > 60 (>60) 01/16/23 04:15 Glucose 118 mg/dL (65-99) H 01/16/23 04:15 Calcium 9.0 mg/dL (8.5-10.1) 01/16/23 04:15 Corrected Calcium TNP 01/16/23 04:15 Magnesium 2.4 mg/dL (2.0-2.9) 01/16/23 04:15 Total Bilirubin 1.40 mg/dL (0.2-1.0) H 01/16/23 04:15 AST 25 Units/L (15-37) 01/16/23 04:15 ALT 15 Units/L (12-78) 01/16/23 04:15 Alkaline Phosphatase 95 Units/L (46-116) 01/16/23 04:15 B-Natriuretic Peptide 209 pg/mL (0-79) H 01/16/23 04:15 Total Protein 6.9 g/dL (6.4-8.2) 01/16/23 04:15 Albumin 3.7 g/dL (3.4-5.0) 01/16/23 04:15 Globulin 3.2 g/dL (2.5-4.5) 01/16/23 04:15 Albumin/Globulin Ratio 1.2 Ratio (1.1-2.1) 01/16/23 04:15 Specimen Type Catherized urine 01/14/23 14:20 Urine Color [place] (YELLOW) 01/14/23 14:20 Urine Appearance Hazy (CLEAR) 01/14/23 14:20 Urine pH 6.5 (5.0 - 8.0) 01/14/23 14:20 Ur Specific [place] 1.010 (1.000-1.030) 01/14/23 14:20 Urine Protein 3+ (NEGATIVE) 01/14/23 14:20 Urine Glucose (UA) Negative (NEGATIVE) 01/14/23 14:20 Urine Ketones 1+ (NEGATIVE) 01/14/23 14:20 Urine Blood 5+ (NEGATIVE) 01/14/23 14:20 Urine Nitrite Negative (NEGATIVE) 01/14/23 14:20 Urine Bilirubin Negative (NEGATIVE) 01/14/23 14:20 Urine Urobilinogen 1+ (NORMAL) 01/14/23 14:20 Ur Leukocyte Esterase 1+ (NEGATIVE) 01/14/23 14:20 Urine RBC Tntc /HPF (0-3) A 01/14/23 14:20 Urine WBC 5-10 /HPF (0-5) A 01/14/23 14:20 Ur Squamous Epith Cells Rare /HPF (NEGATIVE) 01/14/23 14:20 Urine Bacteria Trace /HPF (NEGATIVE) 01/14/23 14:20 Hyaline Casts Few /LPF (NEGATIVE) 01/05/23 19:27 Urine Mucus Many /HPF (NEGATIVE) 01/05/23 19:27 Ur Culture Indicated? No/not indicated 01/14/23 14:20 Digoxin 0.51 ng/mL (0.9-2) L 01/16/23 04:15 Resp Viral Panel (PCR) See scanned report 01/05/23 14:00 Plan (1) CHF (congestive heart failure): Status: Chronic Qualifiers: Heart failure chronicity: acute on chronic Heart failure type: unspecified Qualified Code(s): I50.9 - Heart failure, unspecified (2) Atrial fibrillation with RVR: Status: Acute (3) Acute bronchitis: Status: Acute Qualifiers: Bronchitis organism: parainfluenza virus Qualified Code(s): J20.4 - Acute bronchitis due to parainfluenza virus (4) Hypokalemia: Status: Acute (5) Dementia: Status: Chronic Qualifiers: Dementia behavioral or psychological symptom: with agitation Dementia severity: moderate Dementia type: unspecified type Qualified Code(s): F03.B11 - Unspecified dementia, moderate, with agitation (6) BPH (benign prostatic hyperplasia): Status: Chronic Qualifiers: Lower urinary tract symptom presence: unspecified whether lower urinary tract symptoms present Qualified Code(s): N40.0 - Benign prostatic hyperplasia without lower urinary tract symptoms (7) GERD (gastroesophageal reflux disease): Status: Chronic Qualifiers: Esophagitis presence: esophagitis presence not specified Qualified Code(s): K21.9 - Gastro-esophageal reflux disease without esophagitis (8) CAD (coronary artery disease): Status: Chronic Qualifiers: Associated angina: unspecified whether angina present Coronary Disease- Associated Artery/Lesion type: bypass graft [place] vs. transplanted heart: [place] heart Qualified Code(s): I25.810 - Atherosclerosis of coronary artery bypass graft(s) without angina pectoris
[2023-01-16] MEDS: K-RIDER 10 MEQ/NS 100 ML 10 MEQ/100 ML BAG IV PRN (14:04)
[2023-01-16] MEDS: MVI IV SCH ×3 (15:32)
[2023-01-16] MEDS: TPN ELECTROLYTES IV SCH ×3 (15:32)
[2023-01-16] MEDS: CLINIMIX IV SCH ×3 (15:32)
[2023-01-16] MEDS ORDERED: DRUG FILTER EXTENSION SET ONE (16:19)
[2023-01-16] MEDS: COUMADIN TAB 2.5 MG (JANTOVEN) PO SCH (20:43)
[2023-01-16] MEDS: DESYREL PO SCH (20:43)
[2023-01-16] MEDS: NEURONTIN CAP 300 MG PO SCH (20:45)
[2023-01-16] MEDS: BUTT CREAM (COMPOUND) TOP PRN (21:35)
[2023-01-17] MEDS: MUCOMYST 20% 200 MG/ML NEB SCH ×4 (00:06→17:40)
[2023-01-17] MEDS: XOPENEX 1.25 MG/3 ML NEBULE NEB SCH ×4 (00:06→17:40)
[2023-01-17 05:21] LABS: BASOPHILS % (AUTO) 0.2 % (0.2-1.0); EOSINOPHILS # (AUTO) 0.2 x10^3/uL (0.0-0.2); EOSINOPHILS % (AUTO) 2.4 % (0.9-2.9); HEMATOCRIT 36.2 % (42.0-54.0); HEMOGLOBIN 12.4 g/dL (13.5-18.0); LYMPHOCYTES % (AUTO) 10.3 % (21.0-51.0); MEAN CORPUSCULAR HEMOGLOBIN 30.5 pg (27.0-34.0); MEAN CORPUSCULAR HGB CONC 34.2 g/dL (33.0-35.0); MEAN CORPUSCULAR VOLUME 89.3 fL (80.0-100.0); MEAN PLATELET VOLUME 7.4 fL (7.4-11.0); MONOCYTES # (AUTO) 0.9 x10^3/uL (0.3-0.8); MONOCYTES % (AUTO) 9.6 % (0.0-13.0); NEUTROPHILS # (AUTO) 7.4 x10^3/uL (2.2-4.8); NEUTROPHILS % (AUTO) 77.5 % (42.0-75.0); PLATELET COUNT 150 X10^3/uL (150.0-450.0); RED BLOOD COUNT 4.05 X10^6/uL (4.7-6.0); RED CELL DISTRIBUTION WIDTH 14.3 % (11.6-16.5); WHITE BLOOD COUNT 9.6 X10^3/uL (3.6-10.0)
[2023-01-17 05:28] LABS: ALANINE AMINOTRANSFERASE 11 Units/L (12-78); ALBUMIN 3.3 g/dL (3.4-5.0); ALKALINE PHOSPHATASE 82 Units/L (46-116); ASPARTATE AMINO TRANSFERASE 24 Units/L (15-37); BLOOD UREA NITROGEN 33 mg/dL (7-18); CALCIUM 8.4 mg/dL (8.5-10.1); CARBON DIOXIDE 37.1 mmol/L (21-32); CHLORIDE 101 mmol/L (98-107); COR NA(FOR HYPERGLY) 141 mmol/L (136-145); CREATININE 0.79 mg/dL (0.70-1.30); GLUCOSE 113 mg/dL (65-99); MAGNESIUM 2.1 mg/dL (2.0-2.9); POTASSIUM 3.3 mmol/L (3.5-5.1); SODIUM 141 mmol/L (136-145); TOTAL PROTEIN 6.1 g/dL (6.4-8.2); eGFR NON BLACK RACES > 60 (>60)
[2023-01-17] MEDS: K-DUR TAB 20 MEQ PO PRN (05:43)
[2023-01-17] MEDS: PULMICORT NEB TX 0.5 MG NEB SCH (08:13)
[2023-01-17] MEDS: ALBUMIN HUMAN 25%- 100 ML 100 ML IV SCH (08:54)
[2023-01-17] MEDS: PROTONIX INJ 40 MG VIAL IVP SCH ×2 (08:54→21:02)
[2023-01-17] MEDS: LASIX IVP SCH (08:54)
[2023-01-17] MEDS: ROBITUSSIN DM PO SCH ×4 (09:02→21:02)
[2023-01-17] MEDS: COREG TAB 3.125 MG PO SCH ×2 (09:02→20:59)
[2023-01-17] MEDS: NAMENDA TAB 10 MG PO SCH ×2 (09:02→21:03)
[2023-01-17] MEDS: FOLIC ACID TAB 1 MG PO SCH (09:02)
[2023-01-17] MEDS: MEGACE PO SCH ×2 (09:02→21:01)
[2023-01-17] MEDS: ARICEPT TAB 5 MG PO SCH ×2 (09:02→21:00)
[2023-01-17] MEDS: FLOMAX PO SCH ×2 (09:02→21:01)
[2023-01-17] MEDS: LIPITOR TAB 10 MG PO SCH (09:02)
[2023-01-17] MEDS: CARDIZEM TAB 30 MG PLAIN PO SCH ×2 (09:02→20:58)
[2023-01-17] MEDS: LANOXIN or DIGITEK PO SCH (09:04)
[2023-01-17] MEDS: MICRO K EXTEN CAP 10 MEQ PO SCH (09:07)
[2023-01-17] MEDS: LEVAQUIN PREMIX IV 750 MG 750 MG/150 ML BAG IV SCH (10:10)
--- NOTE | 2023-01-17 11:27 | PCM.PROG ---
Progress Note Progress Note for Day of Date of Exam: 01/17/23 Subjective Subjective: Patient seen at bedside, no acute events overnight. He is currently on 2L NC. He still has some productive cough. He does have some trouble with swallowing, speech recommended pureed diet. He was able to take his medicines today. He is also receiving TPN. He is currently admitted for CHF exacerbation, generalized weakness and bronchitis. He was noted to have some blood clots in the urine. Family states patient was having that prior to admission and did see Urology recently, his PSA was 7. He did have a gomez initially but that was removed due to blood clots. PT recommends SNF placement. Labs/imaging reviewed: K - 3.8 Plan: continue IV Levaquin, wean O2 as tolerated to keep sats > 90%. Continue IV lasix daily, monitor I&Os, daily weights. Follow echo results. Continue pureed diet as speech recommendations. Continue TPN. Replace K PO. Monitor AM labs. Monitor urine for blood clots. Patient does not have a gomez at this time, could be related to trauma from the gomez. PT/OT as tolerated. CM to work on SNF placement on Wednesday. Time spent for reviewing labs/imaging, physical exam, assessment/plan, decision making and documentation greater than 45 mins. Past Medical Family Social History Past Med/Fam/Surg Hx: No changes since H&P Allergies: Allergies No Known Drug Allergies Allergy (Verified 01/05/23 14:13) Review of Systems ROS: No change since H&P Vital Signs and I&O's Vital Signs: Temperature 97.7 F Pulse Rate [Left Brachial] 95 Pulse Rate 76 Respiratory Rate 15 Blood Pressure [Left Thigh] 154/76 Blood Pressure [Right Arm] 118/87 Blood Pressure [Left Arm] 131/94 Blood Pressure 107/52 O2 Sat by Pulse Oximetry 99 Intake and Output: Intake & Output 01/14/23 01/15/23 01/16/23 01/17/23 23:59 23:59 23:59 23:59 Intake Total 1804 / 1804 1867 / 1867 860 / 860 370 / 370 Output Total 1850 / 1850 650 / 650 Balance -46 / -46 1217 / 1217 860 / 860 370 / 370 Physical Exam Oriented: Normal Eyes: Normal Ear: Normal Nose: Normal Throat: Normal Respiratory: Generalized, Rales and Rhonchi Cardiovascular: Irregular (A-FIB ) and Edema (TRACE ) Auscultation: Bowel Sounds: Normal Tenderness: Normal Skin: Normal Musculoskeletal: Normal Psychiatric: Normal Mood Description: Calm Affect: Normal Speech Pattern: Clear and Appropriate Laboratory and Diagnostics Result Diagrams: 01/17/23 04:55 01/17/23 08:02 Labs: 01/05/23 14:30 Blood Blood Culture - Final 01/05/23 14:28 Blood Blood Culture - Final 01/05/23 14:00 Sputum - Expectorated Sputum Sputum Culture - Final 01/05/23 14:00 Sputum - Expectorated Sputum - Final Laboratory WBC 9.6 X10^3/uL (3.6-10.0) 01/17/23 04:55 RBC 4.05 X10^6/uL (4.7-6.0) L 01/17/23 04:55 Hgb 12.4 g/dL (13.5-18.0) L 01/17/23 04:55 Hct 36.2 % (42.0-54.0) L 01/17/23 04:55 MCV 89.3 fL (80.0-100.0) 01/17/23 04:55 MCH 30.5 pg (27.0-34.0) 01/17/23 04:55 MCHC 34.2 g/dL (33.0-35.0) 01/17/23 04:55 RDW 14.3 % (11.6-16.5) 01/17/23 04:55 Plt Count 150 X10^3/uL (150.0-450.0) 01/17/23 04:55 MPV 7.4 fL (7.4-11.0) 01/17/23 04:55 Neut % (Auto) 77.5 % (42.0-75.0) H 01/17/23 04:55 Lymph % (Auto) 10.3 % (21.0-51.0) L 01/17/23 04:55 [place] % (Auto) 9.6 % (0.0-13.0) 01/17/23 04:55 Eos % (Auto) 2.4 % (0.9-2.9) 01/17/23 04:55 Baso % (Auto) 0.2 % (0.2-1.0) 01/17/23 04:55 Neut # (Auto) 7.4 x10^3/uL (2.2-4.8) H 01/17/23 04:55 Lymph # (Auto) 1.0 X10^3/uL (1.3-2.9) L 01/17/23 04:55 [place] # (Auto) 0.9 x10^3/uL (0.3-0.8) H 01/17/23 04:55 Eos # (Auto) 0.2 x10^3/uL (0.0-0.2) 01/17/23 04:55 Baso # (Auto) 0.0 X10^3/uL (0.0-0.1) 01/17/23 04:55 Absolute Nucleated RBC 0.0 /100WBC 01/17/23 04:55 PT 15.3 SECONDS (11.8-14.3) 01/16/23 04:15 INR Target Range - 01/16/23 04:15 INR 1.23 (0.8-1.3) 01/16/23 04:15 Sodium 141 mmol/L (136-145) 01/17/23 04:55 Corrected Sodium 141 mmol/L (136-145) 01/17/23 04:55 Potassium 3.8 mmol/L (3.5-5.1) 01/17/23 08:02 Chloride 101 mmol/L (98-107) 01/17/23 04:55 Carbon Dioxide 37.1 mmol/L (21-32) H 01/17/23 04:55 BUN 33 mg/dL (7-18) H 01/17/23 04:55 Creatinine 0.79 mg/dL (0.70-1.30) 01/17/23 04:55 Est GFR (MDRD) Af Amer > 60 (>60) 01/17/23 04:55 Est GFR (MDRD) Non-Af > 60 (>60) 01/17/23 04:55 Glucose 113 mg/dL (65-99) H 01/17/23 04:55 Calcium 8.4 mg/dL (8.5-10.1) L 01/17/23 04:55 Corrected Calcium 9.0 mg/dL (8.5-10.1) 01/17/23 04:55 Magnesium 2.1 mg/dL (2.0-2.9) 01/17/23 04:55 Total Bilirubin 1.50 mg/dL (0.2-1.0) H 01/17/23 04:55 AST 24 Units/L (15-37) 01/17/23 04:55 ALT 11 Units/L (12-78) L 01/17/23 04:55 Alkaline Phosphatase 82 Units/L (46-116) 01/17/23 04:55 B-Natriuretic Peptide 209 pg/mL (0-79) H 01/16/23 04:15 Total Protein 6.1 g/dL (6.4-8.2) L 01/17/23 04:55 Albumin 3.3 g/dL (3.4-5.0) L 01/17/23 04:55 Globulin 2.8 g/dL (2.5-4.5) 01/17/23 04:55 Albumin/Globulin Ratio 1.2 Ratio (1.1-2.1) 01/17/23 04:55 Specimen Type Catherized urine 01/14/23 14:20 Urine Color [place] (YELLOW) 01/14/23 14:20 Urine Appearance Hazy (CLEAR) 01/14/23 14:20 Urine pH 6.5 (5.0 - 8.0) 01/14/23 14:20 Ur Specific [place] 1.010 (1.000-1.030) 01/14/23 14:20 Urine Protein 3+ (NEGATIVE) 01/14/23 14:20 Urine Glucose (UA) Negative (NEGATIVE) 01/14/23 14:20 Urine Ketones 1+ (NEGATIVE) 01/14/23 14:20 Urine Blood 5+ (NEGATIVE) 01/14/23 14:20 Urine Nitrite Negative (NEGATIVE) 01/14/23 14:20 Urine Bilirubin Negative (NEGATIVE) 01/14/23 14:20 Urine Urobilinogen 1+ (NORMAL) 01/14/23 14:20 Ur Leukocyte Esterase 1+ (NEGATIVE) 01/14/23 14:20 Urine RBC Tntc /HPF (0-3) A 01/14/23 14:20 Urine WBC 5-10 /HPF (0-5) A 01/14/23 14:20 Ur Squamous Epith Cells Rare /HPF (NEGATIVE) 01/14/23 14:20 Urine Bacteria Trace /HPF (NEGATIVE) 01/14/23 14:20 Hyaline Casts Few /LPF (NEGATIVE) 01/05/23 19:27 Urine Mucus Many /HPF (NEGATIVE) 01/05/23 19:27 Ur Culture Indicated? No/not indicated 01/14/23 14:20 Digoxin 0.51 ng/mL (0.9-2) L 01/16/23 04:15 Resp Viral Panel (PCR) See scanned report 01/05/23 14:00 Plan (1) CHF (congestive heart failure): Status: Chronic Qualifiers: Heart failure chronicity: acute on chronic Heart failure type: unspecified Qualified Code(s): I50.9 - Heart failure, unspecified (2) Atrial fibrillation with RVR: Status: Acute (3) Acute bronchitis: Status: Acute Qualifiers: Bronchitis organism: parainfluenza virus Qualified Code(s): J20.4 - Acute bronchitis due to parainfluenza virus (4) Hypokalemia: Status: Acute (5) Dementia: Status: Chronic Qualifiers: Dementia behavioral or psychological symptom: with agitation Dementia severity: moderate Dementia type: unspecified type Qualified Code(s): F03.B11 - Unspecified dementia, moderate, with agitation (6) BPH (benign prostatic hyperplasia): Status: Chronic Qualifiers: Lower urinary tract symptom presence: unspecified whether lower urinary tract symptoms present Qualified Code(s): N40.0 - Benign prostatic hyperplasia without lower urinary tract symptoms (7) GERD (gastroesophageal reflux disease): Status: Chronic Qualifiers: Esophagitis presence: esophagitis presence not specified Qualified Code(s): K21.9 - Gastro-esophageal reflux disease without esophagitis (8) CAD (coronary artery disease): Status: Chronic Qualifiers: Associated angina: unspecified whether angina present Coronary Disease- Associated Artery/Lesion type: bypass graft [place] vs. transplanted heart: [place] heart Qualified Code(s): I25.810 - Atherosclerosis of coronary artery bypass graft(s) without angina pectoris
[2023-01-17] MEDS ORDERED: DRUG FILTER EXTENSION SET ONE (13:23)
[2023-01-17] MEDS: TPN ELECTROLYTES IV SCH ×3 (13:32)
[2023-01-17] MEDS: CLINIMIX IV SCH ×3 (13:32)
[2023-01-17] MEDS: MVI IV SCH ×3 (13:32)
[2023-01-17] MEDS: COUMADIN TAB 2.5 MG (JANTOVEN) PO SCH (20:58)
[2023-01-17] MEDS: NEURONTIN CAP 300 MG PO SCH (21:01)
[2023-01-17] MEDS: DESYREL PO SCH (21:01)
[2023-01-17] MEDS: TUSSIONEX PENNKINETIC SUSP PO PRN (21:02)
[2023-01-18 04:57] LABS: BASOPHILS % (AUTO) 0.2 % (0.2-1.0); EOSINOPHILS # (AUTO) 0.2 x10^3/uL (0.0-0.2); EOSINOPHILS % (AUTO) 1.7 % (0.9-2.9); HEMATOCRIT 36.9 % (42.0-54.0); HEMOGLOBIN 12.4 g/dL (13.5-18.0); LYMPHOCYTES # (AUTO) 0.9 X10^3/uL (1.3-2.9); LYMPHOCYTES % (AUTO) 9.4 % (21.0-51.0); MEAN CORPUSCULAR HGB CONC 33.5 g/dL (33.0-35.0); MEAN CORPUSCULAR VOLUME 89.4 fL (80.0-100.0); MEAN PLATELET VOLUME 7.8 fL (7.4-11.0); MONOCYTES # (AUTO) 0.9 x10^3/uL (0.3-0.8); MONOCYTES % (AUTO) 9.4 % (0.0-13.0); NEUTROPHILS # (AUTO) 7.4 x10^3/uL (2.2-4.8); NEUTROPHILS % (AUTO) 79.3 % (42.0-75.0); PLATELET COUNT 161 X10^3/uL (150.0-450.0); RED BLOOD COUNT 4.12 X10^6/uL (4.7-6.0); RED CELL DISTRIBUTION WIDTH 14.6 % (11.6-16.5); WHITE BLOOD COUNT 9.4 X10^3/uL (3.6-10.0)
[2023-01-18 05:09] LABS: ALANINE AMINOTRANSFERASE 11 Units/L (12-78); ALBUMIN 3.4 g/dL (3.4-5.0); ALKALINE PHOSPHATASE 83 Units/L (46-116); ASPARTATE AMINO TRANSFERASE 22 Units/L (15-37); BLOOD UREA NITROGEN 32 mg/dL (7-18); CALCIUM 8.7 mg/dL (8.5-10.1); CHLORIDE 102 mmol/L (98-107); CREATININE 0.76 mg/dL (0.70-1.30); GLUCOSE 108 mg/dL (65-99); POTASSIUM 3.5 mmol/L (3.5-5.1); SODIUM 140 mmol/L (136-145); TOTAL PROTEIN 6.2 g/dL (6.4-8.2); eGFR NON BLACK RACES > 60 (>60)
[2023-01-18] MEDS: MUCOMYST 20% 200 MG/ML NEB SCH ×3 (06:00→17:43)
[2023-01-18] MEDS: XOPENEX 1.25 MG/3 ML NEBULE NEB SCH ×3 (06:00→17:43)
--- NOTE | 2023-01-18 06:11 | RAD ---
HISTORYCough, shortness of breathSTUDYChest AP [id number]/2023FINDINGSPati ent is status post median sternotomy and CABG. Heart size is normal. Sonia are normal. Lung collins are free of acute infiltrates. There is some subsegmental atelectasis in the right cardiophrenic angle. No pleural effusions are identified. Bony thorax is unremarkable.IMPRESSIONNo acute infiltratesSubsegmental atelectasis right cardiophrenic angleElectronically signed by: ISABELLE CALVO (January 18, 2023 06:10:20)
[2023-01-18] MEDS: PULMICORT NEB TX 0.5 MG NEB SCH ×2 (08:29→20:20)
[2023-01-18] MEDS: ALBUMIN HUMAN 25%- 100 ML 100 ML IV SCH (08:41)
[2023-01-18 08:45] LABS: INR 1.33 (0.8-1.3)
[2023-01-18] MEDS: LEVAQUIN PREMIX IV 750 MG 750 MG/150 ML BAG IV SCH (09:24)
[2023-01-18] MEDS: COREG TAB 3.125 MG PO SCH ×2 (09:28→20:03)
[2023-01-18] MEDS: ROBITUSSIN DM PO SCH ×4 (09:29→20:03)
[2023-01-18] MEDS: LANOXIN or DIGITEK PO SCH (09:31)
[2023-01-18] MEDS: FLOMAX PO SCH ×2 (09:32→20:03)
[2023-01-18] MEDS: CARDIZEM TAB 30 MG PLAIN PO SCH ×2 (09:33→20:03)
[2023-01-18] MEDS: MICRO K EXTEN CAP 10 MEQ PO SCH (09:35)
[2023-01-18] MEDS: FOLIC ACID TAB 1 MG PO SCH (09:41)
[2023-01-18] MEDS: LIPITOR TAB 10 MG PO SCH (09:42)
[2023-01-18] MEDS: ARICEPT TAB 5 MG PO SCH ×2 (09:42→20:03)
[2023-01-18] MEDS: MEGACE PO SCH ×2 (09:43→20:03)
[2023-01-18] MEDS: NAMENDA TAB 10 MG PO SCH ×2 (09:43→20:03)
[2023-01-18] MEDS: LASIX IVP SCH (09:44)
[2023-01-18] MEDS: PROTONIX INJ 40 MG VIAL IVP SCH ×2 (09:48→20:04)
--- NOTE | 2023-01-18 13:09 | PCM.PROG ---
Progress Note - Progress Note for Day of Date of Exam: 01/18/23 - Subjective Subjective: IS CURRENTLY INPATIENT STATUS FOR TREATMENT OF CHF EXACERBATION, ATRIAL FIBRILLATION, ACUTE BRONCHITIS, AND HYPOALBUMINEMIA. HE HAS A PMH OF DEMENTIA, GLAUCOMA, GERD, BPH, CAD, ATRIAL FIBRILLATION, CARDIAC STENTS, CABG, AND TONSILLECTOMY. HE REMAINS IN THE INTENSIVE CARE UNIT. HE CON TINUES TO COMPLAIN OF GENERALIZED WEAKNESS. HE DOES STILL HAVE AN OCCASIONAL COUGH, BUT IT IS NO LONGER PRODUCTIVE. OVERALL, HE IS LOOKING BETTER THAN WHEN WE LAST SAW HIM. HE WAS ABLE TO SIT ON THE SIDE OF THE BED AND WORK WITH PHYSICAL THERAPY THIS MORNING. ON EXAMINATION TODAY, HEART IS REGULAR IN RATE AND RHYTHM. BILATERAL LUNGS ARE NOTED WITH DIMINISHED LUNG SOUNDS THROUGHOUT. ABDOMEN IS ROUND, SOFT, AND NON-TENDER WITH NORMAL BOWEL SOUNDS NOTED IN ALL QUADRANTS. GOOD MOVEMENT NOTED IN UPPER AND LOWER EXTREMITIES WITH TRACE LOWER EXTREMITY EDEMA NOTED. HIS VITALS THIS MORNING ARE: 98.3-81-19-99%-166/63. HE IS CURRENTLY UTILIZING OXYGEN VIA NASAL CANNULA AT 2 LPM. LABS WERE OBTAINED. WBC 9.4, RBC 4.12, HGB 12.4, HCT 36.9, PLT COUNT 161, INR 1.33, SODIUM 140, POTASSIUM 3.5, CHLORIDE 102, CARBON DIOXIDE 35.0, BUN 32, CREATININE 0.76, GLUCOSE 108, CALCIUM 8.7, TOTAL BILI 1.40, AST 22, ALT 11, ALK PHOS 83, TOTAL PROTEIN 6.2, ALBUMIN 3.4. A CHEST XRAY WAS OBTAINED AND REVEALED: No acute infiltrates. Subsegmental atelectasis right cardiophrenic angle. HE IS CURRENTLY RECEIVING TPN, ALBUMIN 25% IV DAILY, MEGACE BID, PROTONIX 40MG IV BID, COREG 6.25MG BID, CARDIZEM CD 60MG BID, COUMADIN 2.5MG HS, DIGOXIN 0.125MG DAILY, FUROSEMIDE 40MG IV DAILY, LEVAQUIN 750MG IV DAILY, PULMICORT NEBS BID, XOPENEX NEBS Q6H, MUCOMYST IN NEBS Q6H, ROBITUSSIN DM 10ML QID, TUSSIONEX 5ML Q12H PRN, FLONASE 1 SPRAY BID, CLARITIN D 1 TAB Q12H, ULTRAM 50MG Q4H PRN, HALDOL 2-4MG IM Q4H PRN, AND THE POTASSIUM AND MAGNESIUM PROTOCOLS. HIS HOME MEDICATIONS OF GABAPENTIN, MEMANTINE, GABAPENTIN, DONEPEZIL, POTASSIUM CHLORIDE, FOLIC ACID, TAMSULOSIN, AND ATORVASTATIN WERE ALSO RESUMED. PHYSICAL THERAPY HAS EVALUATED PATIENT AND RECOMMENDS CONTINUED PHYSICAL THERAPY SERVICES FOR PATIENT. WE ARE ARRANGING A PHYSICAL THERAPY AND REHAB STAY AT THE LONGTERM. WE WILL DISCONTINUE HIS LEVAQUIN TODAY. OTHERWISE, WE WILL CONTINUE WITH CURRENT PLAN OF CARE. WE WILL FOLLOW-UP WITH AM LABS AND CONTINUE TO MONITOR. TIME SPENT ON CLINICAL ASSESSMENT, REVIWING LABS AND IMAGING, DECISION MAKING, AND DOCUMENTATION GREATER THAN 45 MINUTES. - Past Medical Family Social History Past Med/Fam/Surg Hx: No changes since H&P Allergies: Allergies No Known Drug Allergies Allergy (Verified 01/05/23 14:13) - Review of Systems ROS: No change since H&P - Vital Signs and I&O's Vital Signs: Temperature 98.3 F Pulse Rate [Left Brachial] 95 Pulse Rate 70 Respiratory Rate 20 Blood Pressure [Left Thigh] 154/76 Blood Pressure [Right Arm] 118/87 Blood Pressure [Left Arm] 131/94 Blood Pressure 112/56 O2 Sat by Pulse Oximetry 99 Intake and Output: Intake & Output 01/16/23 01/17/23 01/18/23 01/19/23 11:59 11:59 11:59 11:59 Intake Total 2003 840 / 840 1613 / 1613 Output Total 300 / 300 Balance 1704 / 1704 840 / 840 1613 / 1613 - Physical Exam Oriented: Normal Eyes: Normal Ear: Normal Nose: Normal Throat: Normal Respiratory: Generalized, Diminished Cardiovascular: Normal, Edema (TRACE) : Normal Auscultation: Bowel Sounds: Normal Palpation: Normal Tenderness: Normal Skin: Normal Musculoskeletal: Normal Psychiatric: Normal Mood Description: Calm Affect: Normal Speech Pattern: Clear, Appropriate - Laboratory and Diagnostics Result Diagrams: 01/18/23 04:00 01/18/23 04:00 Labs: 01/05/23 14:30 Blood Blood Culture - Final 01/05/23 14:28 Blood Blood Culture - Final 01/05/23 14:00 Sputum - Expectorated Sputum Sputum Culture - Final 01/05/23 14:00 Sputum - Expectorated Sputum - Final Laboratory WBC 9.4 X10^3/uL (3.6-10.0) 05/01/23 04:00 RBC 4.12 X10^6/uL (4.7-6.0) L 01/18/23 04:00 Hgb 12.4 g/dL (13.5-18.0) L 01/18/23 04:00 Hct 36.9 % (42.0-54.0) L 01/18/23 04:00 MCV 89.4 fL (80.0-100.0) 01/18/23 04:00 MCH 30.0 pg (27.0-34.0) 01/18/23 04:00 MCHC 33.5 g/dL (33.0-35.0) 01/18/23 04:00 RDW 14.6 % (11.6-16.5) 01/18/23 04:00 Plt Count 161 X10^3/uL (150.0-450.0) 01/18/23 04:00 MPV 7.8 fL (7.4-11.0) 01/18/23 04:00 Neut % (Auto) 79.3 % (42.0-75.0) H 01/18/23 04:00 Lymph % (Auto) 9.4 % (21.0-51.0) L 01/18/23 04:00 [place] % (Auto) 9.4 % (0.0-13.0) 01/18/23 04:00 Eos % (Auto) 1.7 % (0.9-2.9) 01/18/23 04:00 Baso % (Auto) 0.2 % (0.2-1.0) 01/18/23 04:00 Neut # (Auto) 7.4 x10^3/uL (2.2-4.8) H 01/18/23 04:00 Lymph # (Auto) 0.9 X10^3/uL (1.3-2.9) L 01/18/23 04:00 [place] # (Auto) 0.9 x10^3/uL (0.3-0.8) H 01/18/23 04:00 Eos # (Auto) 0.2 x10^3/uL (0.0-0.2) 01/18/23 04:00 Baso # (Auto) 0.0 X10^3/uL (0.0-0.1) 01/18/23 04:00 Absolute Nucleated RBC 0.0 /100WBC 01/18/23 04:00 PT 16.2 SECONDS (11.8-14.3) 01/18/23 04:00 INR Target Range - 01/18/23 04:00 INR 1.33 (0.8-1.3) H 01/18/23 04:00 Sodium 140 mmol/L (136-145) 01/18/23 04:00 Corrected Sodium TNP 01/18/23 04:00 Potassium 3.5 mmol/L (3.5-5.1) 01/18/23 04:00 Chloride 102 mmol/L (98-107) 01/18/23 04:00 Carbon Dioxide 35.0 mmol/L (21-32) H 01/18/23 04:00 BUN 32 mg/dL (7-18) H 01/18/23 04:00 Creatinine 0.76 mg/dL (0.70-1.30) 01/18/23 04:00 Est GFR (MDRD) Af Amer > 60 (>60) 01/18/23 04:00 Est GFR (MDRD) Non-Af > 60 (>60) 01/18/23 04:00 Glucose 108 mg/dL (65-99) H 01/18/23 04:00 Calcium 8.7 mg/dL (8.5-10.1) 01/18/23 04:00 Corrected Calcium TNP 01/18/23 04:00 Magnesium 2.1 mg/dL (2.0-2.9) 01/17/23 04:55 Total Bilirubin 1.40 mg/dL (0.2-1.0) H 01/18/23 04:00 AST 22 Units/L (15-37) 01/18/23 04:00 ALT 11 Units/L (12-78) L 01/18/23 04:00 Alkaline Phosphatase 83 Units/L (46-116) 01/18/23 04:00 B-Natriuretic Peptide 209 pg/mL (0-79) H 01/16/23 04:15 Total Protein 6.2 g/dL (6.4-8.2) L 01/18/23 04:00 Albumin 3.4 g/dL (3.4-5.0) 01/18/23 04:00 Globulin 2.8 g/dL (2.5-4.5) 01/18/23 04:00 Albumin/Globulin Ratio 1.2 Ratio (1.1-2.1) 01/18/23 04:00 Specimen Type Catherized urine 01/14/23 14:20 Urine Color [place] (YELLOW) 01/14/23 14:20 Urine Appearance Hazy (CLEAR) 01/14/23 14:20 Urine pH 6.5 (5.0 - 8.0) 01/14/23 14:20 Ur Specific [place] 1.010 (1.000-1.030) 01/14/23 14:20 Urine Protein 3+ (NEGATIVE) 01/14/23 14:20 Urine Glucose (UA) Negative (NEGATIVE) 01/14/23 14:20 Urine Ketones 1+ (NEGATIVE) 01/14/23 14:20 Urine Blood 5+ (NEGATIVE) 01/14/23 14:20 Urine Nitrite Negative (NEGATIVE) 01/14/23 14:20 Urine Bilirubin Negative (NEGATIVE) 01/14/23 14:20 Urine Urobilinogen 1+ (NORMAL) 01/14/23 14:20 Ur Leukocyte Esterase 1+ (NEGATIVE) 01/14/23 14:20 Urine RBC Tntc /HPF (0-3) A 01/14/23 14:20 Urine WBC 5-10 /HPF (0-5) A 01/14/23 14:20 Ur Squamous Epith Cells Rare /HPF (NEGATIVE) 01/14/23 14:20 Urine Bacteria Trace /HPF (NEGATIVE) 01/14/23 14:20 Hyaline Casts Few /LPF (NEGATIVE) 01/05/23 19:27 Urine Mucus Many /HPF (NEGATIVE) 01/05/23 19:27 Ur Culture Indicated? No/not indicated 01/14/23 14:20 Digoxin 0.78 ng/mL (0.9-2) L 01/18/23 04:00 Resp Viral Panel (PCR) See scanned report 01/05/23 14:00 - Plan (1) CHF (congestive heart failure) Status: Chronic Qualifiers: Heart failure type: unspecified Heart failure chronicity: acute on chronic Qualified Code(s): I50.9 - Heart failure, unspecified Plan: TPN, ALBUMIN 25% IV DAILY, MEGACE 40MG BID, COREG 6.25 BID, CARDIZEM 60MG BID, DIGOXIN 0.125MG DAILY, COUMADIN 2.5MG HS, FUROSEMIDE 40MG IV DAILY, PULMICORT NEBS BID, XOPENEX NEBS Q6H, MUCOMYST IN NEB [place] Q6H, ROBITUSSIN DM 10ML QID, TUSSIONEX 5ML Q12H PRN, FLONASE 1 SPRAY BID, CLARITIN D 1 TAB Q12H, ULTRAM 50MG Q4H PRN, HALDOL 2-4MG IM Q4H PRN, AND THE POTASSIUM AND MAGNESIUM P ROTOCOLS. RESUME HOME MEDS (2) Atrial fibrillation with RVR Status: Resolved (3) Acute bronchitis Status: Resolved Qualifiers: Bronchitis organism: parainfluenza virus Qualified Code(s): J20.4 - Acute bronchitis due to parainfluenza virus (4) Hypokalemia Status: Acute (5) Dementia Status: Chronic Qualifiers: Dementia type: unspecified type Dementia severity: moderate Dementia behavioral or psychological symptom: with agitation Qualified Code(s): F03.B11 - Unspecified dementia, moderate, with agitation (6) BPH (benign prostatic hyperplasia) Status: Chronic Qualifiers: Lower urinary tract symptom presence: unspecified whether lower urinary tract symptoms present Qualified Code(s): N40.0 - Benign prostatic hyperplasia without lower urinary tract symptoms (7) GERD (gastroesophageal reflux disease) Status: Chronic Qualifiers: Esophagitis presence: esophagitis presence not specified Qualified Code(s): K21.9 - Gastro-esophageal reflux disease without esophagitis (8) CAD (coronary artery disease) Status: Chronic Qualifiers: Coronary Disease-Associated Artery/Lesion type: bypass graft [place] vs. transplanted heart: [place] heart Associated angina: unspecified whether angina present Qualified Code(s): I25.810 - Atherosclerosis of coronary artery bypass graft(s) without angina pectoris
[2023-01-18] MEDS: MVI IV SCH ×3 (16:30)
[2023-01-18] MEDS: CLINIMIX IV SCH ×3 (16:30)
[2023-01-18] MEDS: TPN ELECTROLYTES IV SCH ×3 (16:30)
[2023-01-18] MEDS ORDERED: DRUG FILTER EXTENSION SET ONE (16:53)
[2023-01-18] MEDS: COUMADIN TAB 2.5 MG (JANTOVEN) PO SCH (20:02)
[2023-01-18] MEDS: DESYREL PO SCH (20:02)
[2023-01-18] MEDS: NEURONTIN CAP 300 MG PO SCH (20:03)
[2023-01-18] MEDS: BUTT CREAM (COMPOUND) TOP PRN (21:15)
[2023-01-19] MEDS: XOPENEX 1.25 MG/3 ML NEBULE NEB SCH ×2 (00:04→06:00)
[2023-01-19] MEDS: MUCOMYST 20% 200 MG/ML NEB SCH ×2 (00:05→06:00)
[2023-01-19] MEDS: BUTT CREAM (COMPOUND) TOP PRN (04:23)
[2023-01-19 05:14] LABS: BASOPHILS % (AUTO) 0.3 % (0.2-1.0); EOSINOPHILS # (AUTO) 0.1 x10^3/uL (0.0-0.2); EOSINOPHILS % (AUTO) 1.4 % (0.9-2.9); HEMATOCRIT 36.6 % (42.0-54.0); HEMOGLOBIN 12.5 g/dL (13.5-18.0); LYMPHOCYTES % (AUTO) 11.5 % (21.0-51.0); MEAN CORPUSCULAR HEMOGLOBIN 30.3 pg (27.0-34.0); MEAN CORPUSCULAR HGB CONC 34.1 g/dL (33.0-35.0); MEAN CORPUSCULAR VOLUME 88.9 fL (80.0-100.0); MEAN PLATELET VOLUME 7.5 fL (7.4-11.0); MONOCYTES % (AUTO) 11.6 % (0.0-13.0); NEUTROPHILS # (AUTO) 6.5 x10^3/uL (2.2-4.8); NEUTROPHILS % (AUTO) 75.2 % (42.0-75.0); PLATELET COUNT 179 X10^3/uL (150.0-450.0); RED BLOOD COUNT 4.12 X10^6/uL (4.7-6.0); RED CELL DISTRIBUTION WIDTH 14.7 % (11.6-16.5); WHITE BLOOD COUNT 8.6 X10^3/uL (3.6-10.0)
[2023-01-19 05:33] LABS: ALANINE AMINOTRANSFERASE 11 Units/L (12-78); ALBUMIN 3.5 g/dL (3.4-5.0); ALKALINE PHOSPHATASE 83 Units/L (46-116); ASPARTATE AMINO TRANSFERASE 28 Units/L (15-37); BLOOD UREA NITROGEN 29 mg/dL (7-18); CALCIUM 8.5 mg/dL (8.5-10.1); CARBON DIOXIDE 30.2 mmol/L (21-32); CHLORIDE 101 mmol/L (98-107); COR NA(FOR HYPERGLY) 138 mmol/L (136-145); CREATININE 0.71 mg/dL (0.70-1.30); GLUCOSE 111 mg/dL (65-99); POTASSIUM 3.7 mmol/L (3.5-5.1); SODIUM 138 mmol/L (136-145); TOTAL PROTEIN 6.3 g/dL (6.4-8.2); eGFR NON BLACK RACES > 60 (>60)
--- NOTE | 2023-01-19 07:59 | RAD ---
HISTORYPneumonia, congestive heart failureSTUDYChest AP [id number]/01/2023FINDINGSPati ent is status post median sternotomy and CABG. Heart is enlarged. No congestive heart failure is noted. Lung collins are clear. No pleural effusions are identified. Bony thorax is unremarkable.IMPRESSIONCardiomegaly without congestive heart failureLungs clearElectronically signed by: ISABELLE CALVO (January 19, 2023 07:58:24)
[2023-01-19] MEDS: PULMICORT NEB TX 0.5 MG NEB SCH (08:50)
[2023-01-19] MEDS: MEGACE PO SCH (10:00)
[2023-01-19] MEDS: COREG TAB 3.125 MG PO SCH (10:00)
[2023-01-19] MEDS: MICRO K EXTEN CAP 10 MEQ PO SCH (10:00)
[2023-01-19] MEDS: ROBITUSSIN DM PO SCH (10:00)
[2023-01-19] MEDS: PROTONIX INJ 40 MG VIAL IVP SCH (10:00)
[2023-01-19] MEDS: ARICEPT TAB 5 MG PO SCH (10:00)
[2023-01-19] MEDS: NAMENDA TAB 10 MG PO SCH (10:00)
[2023-01-19] MEDS: CARDIZEM TAB 30 MG PLAIN PO SCH (10:00)
[2023-01-19] MEDS: LASIX IVP SCH (10:00)
[2023-01-19] MEDS: FOLIC ACID TAB 1 MG PO SCH (10:10)
[2023-01-19] MEDS: LIPITOR TAB 10 MG PO SCH (10:10)
[2023-01-19] MEDS: LANOXIN or DIGITEK PO SCH (10:12)
[2023-01-19] MEDS: FLOMAX PO SCH (10:13)
[2023-01-19] MEDS: ALBUMIN HUMAN 25%- 100 ML 100 ML IV SCH (10:15)
[2023-01-19 14:09] VITALS: BP 115/52
== END 2023-01-19 12:00 | DRG 292 ==
LOC: MED/SURG → OBSVTOIN 13:36 → ICU 01-07 09:14
PROVIDERS: ADMIT Internal Medicine; ATTEND Internal Medicine
DX: R26.89 Other abnormalities of gait and mobility; I50.9 Heart failure, unspecified; R60.0 Localized edema; R13.11 Dysphagia, oral phase; J20.4 Acute bronchitis due to parainfluenza virus; F03.B11 Unspecified dementia, moderate, with agitation; I48.91 Unspecified atrial fibrillation; I25.810 Atherosclerosis of coronary artery bypass graft(s) without angina pectoris; R53.1 Weakness; N40.0 Benign prostatic hyperplasia without lower urinary tract symptoms; Z20.822 Contact with and (suspected) exposure to COVID-19; E87.6 Hypokalemia; K21.9 Gastro-esophageal reflux disease without esophagitis; R79.1 Abnormal coagulation profile; I27.20 Pulmonary hypertension, unspecified; R06.02 Shortness of breath; E88.09 Other disorders of plasma-protein metabolism, not elsewhere classified